=== PATIENT | female | born 1990 | race Caucasian/White ===

== ENCOUNTER 2020-06-14 16:12 | Emergency (ER) | payer SELFPAY ==
[2020-06-14 16:15] VITALS: BP 113/63; PULSE 78; RESP 14; TEMP 36.2; O2SAT 100
[2020-06-14 16:26] VITALS: BP 113/63; PULSE 78; RESP 14; TEMP 36.2; O2SAT 100
--- NOTE | 2020-06-14 16:36 | ED.EAR ---
HPI - Ear Problem General Chief complaint: Ear Stated complaint: ear and throat pain Time Seen by Provider: 06/14/20 16:30 Source: patient Mode of arrival: ambulatory Limitations: no limitations History of Present Illness HPI Narrative: Michelle Medina is a 29 yo female with no PMH who [facility] right-sided jaw and throat pain started about 4 days ago. She has been afebrile but finds it difficult to swallow, has right-sided wisdom teeth that have not come any up that are painful, she has a lump on her throat that makes it difficult to swallow also, states her right ear also hurts Patient has been using Tylenol and ibuprofen for pain, difficulty swallowing when eating Related Data Home Medications Medication Instructions Recorded Confirmed lithium carbonate 300 mg capsule 300 mg PO TID 05/28/19 06/14/20 Allergies Allergy/AdvReac Type Severity Reaction Status Date / Time No Known Allergies Allergy Verified 06/14/20 16:25 Review of Systems Review of Systems: Narrative: CONSTITUTIONAL: Denies fever, chills, sweats. EYES: Denies visual changes, redness, discharge. ENT: Denies rhinorrhea, congestion, has sore throat, has right otalgia. CARDIOVASCULAR: Denies chest pain, palpitations, edema. RESPIRATORY: Denies dyspnea, wheezing, mild cough GASTROINTESTINAL: Denies abdominal pain, nausea, vomiting, diarrhea. GENITOURINARY: Denies dysuria, hematuria, abnormal discharge SKIN: Denies rash or itching. NEUROLOGIC: Denies numbness, or focal weakness. PSYCHIATRIC: Denies anxiety or depression. [facility] Past Medical History Medical History Bipolar 1 disorder Surgical History Surgical History History of tonsillectomy Hx of cholecystectomy Family History Family History Father Heart disease Social History Social History Smoking status: Never smoker Second hand tobacco smoke exposure: No Alcohol intake: never Comments Patient is adopted and can not provide any further family information At time of signature, I agree with nursing past medical, surgical, social and family history. There is no relevant family history pertinent to the presenting complaint. Exam Narrative: Exam Narrative: GENERAL: This is a well-nourished, well-developed patient, in moderate distress. HEAD: normocephalic, atraumatic. EYES: . Sclera clear/white. Vision is grossly intact. EARS: External ears normal, auditory canal clear on L mild redness on right and without drainage, TMs normal without perforation. Hearing grossly intact. NOSE: External nose normal without nasal discharge, nares without redness, no rhinorrhea. THROAT: Mucous membranes moist, posterior pharynx erythema with right-sided swelling NECK: Neck supple, right tender submandibular lymph node CARDIOVASCULAR: Regular rate and rhythm without murmurs, gallops, or rubs. RESPIRATORY: Clear to auscultation. Breath sounds equal bilaterally. No wheezes, rales, or rhonchi. GASTROINTESTINAL: Abdomen soft, SKIN: warm, intact with no suspicious lesions or rash, good texture and turgor. NEURO: awake, alert, and oriented to person, place and time. There were no obvious focal neurologic abnormalities. Steady gait EXTREMITIES: Normal range of motion. BACK: Nontender without deformity Course Course Emergency Course: Patient came to clinic with complaints of right-sided throat pain ear pain and tenderness along the right side of her throat, afebrile, and relief with Tylenol and ibuprofen Test is negative Because of enlarged lymph node in ear pain started on penicillin steroids and viscous lidocaine. Discussed may take up to 800 mg of ibuprofen with food a day for the next 2 to 3 days Follow-up with primary care physician Vital Signs Vital signs: Vital Sign
== END 2020-06-14 17:05 | disposition home or self-care (01) ==
PROVIDERS: Emergency Provider Nurse Practitioner; PCP Family Medicine
DX: I88.9 Nonspecific lymphadenitis, unspecified (principal); J02.9 Acute pharyngitis, unspecified; F31.9 Bipolar disorder, unspecified
CPT/HCPCS: 87081; 87880; 99213; G0463

== ENCOUNTER 2020-09-06 08:36 | Emergency (ER) | payer SELFPAY ==
[2020-09-06 08:50] VITALS: BP 116/69; PULSE 82; RESP 18; TEMP 36.2; O2SAT 100
--- NOTE | 2020-09-06 08:55 | ED.GENADULT ---
HPI - General Adult General Chief complaint: Dental/Oral Stated complaint: Dental/Oral Time Seen by Provider: 09/06/20 08:50 Source: patient Mode of arrival: ambulatory Limitations: no limitations History of Present Illness HPI narrative: Pleasant 29 y/o female. Pertinent PMH: None reported. Presents to [facility] clinic today with acute complaints of RT lower molar toothache/dental pain for past 48 hours respectively. She reports throbbing and aching sensation. States sub-therapeutic relief to OTC remedies. She is a daily cigarette smoker. Has called Dental school for appointment, but they are closed on weekend. No fever, chills. No dental trauma relayed. No gross facial swelling, dysphagia, involuntary drooling. No additional acute complaints upon exam. Related Data Allergies Allergy/AdvReac Type Severity Reaction Status Date / Time No Known Allergies Allergy Verified 09/06/20 08:52 Review of Systems Review of Systems: Narrative: CONSTITUTIONAL: Denies fever, chills, sweats. EYES: Denies visual changes, redness, discharge. ENT: Denies rhinorrhea, congestion, sore throat, otalgia. Positive Toothache. CARDIOVASCULAR: Denies chest pain, palpitations, edema. RESPIRATORY: Denies dyspnea, wheezing, cough GASTROINTESTINAL: Denies abdominal pain, nausea, vomiting, diarrhea. GENITOURINARY: Denies dysuria, hematuria, abnormal discharge SKIN: Denies rash or itching. MUSCULOSKELETAL: Denies acute back pain, joint pain, or myalgia. NEUROLOGIC: Denies numbness, or focal weakness. PSYCHIATRIC: Denies anxiety or depression. All systems reviewed & are unremarkable except as noted in HPI and below PMFSH Past Medical History Medical History Bipolar 1 disorder Surgical History Surgical History History of tonsillectomy Hx of cholecystectomy Family History Family History Father Heart disease Social History Social History Smoking status: Never smoker Second hand tobacco smoke exposure: No Alcohol intake: never Comments At time of signature, I agree with nursing past medical, surgical, social and family history. There is no relevant family history pertinent to the presenting complaint. Exam Narrative: Exam Narrative: GENERAL: This is a well-nourished, well-developed patient, in no apparent distress. HEAD: normocephalic, atraumatic. EYES: PERRL. Sclera clear/white. EARS: External ears normal. NOSE: External nose normal with no obvious nasal discharge, nares without redness, no rhinorrhea. THROAT: Mucous membranes moist, posterior pharynx clear. MOUTH: Noted widespread dental decay. With mild soft tissue swelling and tenderness to site of molar # 32. I do not appreciate gross facial swelling or obvious fluctuance/abscess. NECK: Neck supple, non-tender without lymphadenopathy, masses or thyromegaly. CARDIOVASCULAR: Regular rate and rhythm without murmurs, gallops, or rubs. RESPIRATORY: Clear to auscultation. Breath sounds equal bilaterally. No wheezes, rales, or rhonchi. GASTROINTESTINAL: Abdomen soft, non-tender, nondistended. Bowel sounds are active. No hepato-splenomegaly, or palpable masses. No guarding. SKIN: warm, intact with no suspicious lesions or rash, good texture and turgor. NEURO: awake, alert, and oriented to person, place and time. There were no obvious focal neurologic abnormalities. Steady gait Course Course Emergency Course: -29 y/o female. -No pertinent PMH. -CC: Dentalgia/Toothache RT lower X 48 hours respectively. -Sub-therapeutic relief with OTC remedies. -No established dentist. -PE consistent with widespread dental decay and infection molar 32. -No concern for fluctuance or abscess formation. -Will plan for antimicrobial coverage as OP, as well as cl
== END 2020-09-06 09:08 | disposition home or self-care (01) ==
PROVIDERS: Emergency Provider Nurse Practitioner Adult Health
DX: K04.7 Periapical abscess without sinus (principal)
CPT/HCPCS: 99213; G0463

== ENCOUNTER 2022-10-30 17:03 | Observation (INO) | payer MEDICAID, SELFPAY ==
[2022-10-30] VITALS (7 sets, daily range): BP systolic 92–117; BP diastolic 55–77; PULSE 86–110; RESP 15–18; TEMP 36.6; O2SAT 99–100
--- NOTE | ~2022-10-30 | US_ITS ---
EXAMINATION: US renal BI DATE: 10/30/2022 22:55 INDICATION: Eval hydronephrosis/kidney stone in TECHNIQUE: Multiple grayscale and Doppler ultrasound images of the kidneys were obtained. COMPARISON: None. FINDINGS: The right kidney measures 10.7 x 4.4 x 4.7 cm. The left kidney measures 12.2 x 5.4 x 4.8 cm. The kidn eys demonstrate normal parenchymal echogenicity. There is no hydronephrosis. The bladder is incomplet chele distended but grossly normal. IMPRESSION: Unremarkable renal sonogram findings. Reviewed, dictated and finalized at location K.
--- NOTE | ~2022-10-30 | US_ITS ---
EXAMINATION: US OB <=14 wk fetus w TV INDICATION: Abdominal pain in TECHNIQUE: Sonography of the pelvis was performed by transabdominal and transvaginal techniques. COMPARISON: None. RESULT: Uterus: Orientation: Anteverted. 8.8 x 4.1 x 5.0 cm. Myometrium: homogeneous echogenicity. Gestation: - Intrauterine gestational sac: Not seen. Right ovary: 3.0 x 2.4 x 2.2 cm. Normal sonographic appearance with physiologic follicles. . 1.7 c m complex right ovarian cyst with peripheral vascularity, likely corpus luteal cyst. Left ovary: 1.8 x 1.5 x 1.2 cm. Normal sonographic appearance with physiologic follicles. . . Pelvis free fluid: Very small volume free pelvic fluid, within physiologic range. IMPRESSION: of unknown location. Likely right corpus luteal cyst. Recommend continued close clinical an d sonographic follow-up. Reviewed, dictated and finalized at location K. IMPRESSION: of unknown location. Likely right corpus luteal cyst. Recommend yaneli nued close clinical and sonographic follow-up.
[2022-10-30 17:29] LABS: Basophils Percent Auto 0.3 % (0.2-1.2); Eosinophils Percent Auto 0.4 % (0-4.4); Hematocrit 44.6 % (37.0-47.0); Hemoglobin 15.1 g/dL (12.0-15.0); Immature Granulocyte Absolute 0.02 K/mm3 (0.00-0.031); Immature Granulocyte Percent A 0.2 % (0-0.5); Lymphocytes Absolute Auto 1.89 K/mm3 (0.9-3.2); Mean Corpuscular HGB Conc 33.9 g/dl (32-36); Mean Corpuscular Hemoglobin 30.7 pg (26-34); Mean Corpuscular Volume 90.7 fl (80-100); Mean Platelet Volume 10.1 fl (7.4-10.4); Monocytes Absolute Auto 0.6 K/mm3 (0.1-0.6); Monocytes Percent Auto 6.8 % (2.6-8.5); Neutrophils Absolute Auto 6.8 K/mm3 (1.3-6.7); Neutrophils Percent Auto 72.3 % (45.5-73.1); Platelet Count Result 364 k/mm3 (150-375); Red Blood Count 4.92 M/mm3 (4.2-5.4); Red Cell Distribution Width 12.9 % (11.5-14.5); White Blood Count 9.5 K/mm3 (4.5-10.0)
[2022-10-30 17:44] LABS: Alanine Aminotransferase 34 U/L (6-35); Albumin Level 4.5 g/dL (3.5-5.1); Alkaline Phosphatase 93 U/L (38-126); Anion Gap 7 mmol/L (8-16); Aspartate Amino Transferase 33 U/L (14-36); Bilirubin,Total 0.6 mg/dL (0.2-1.3); Blood Urea Nitrogen 12 mg/dL (7-17); Calcium 8.9 mg/dL (8.4-10.2); Carbon Dioxide 26 mmol/L (22-30); Chloride 104 mmol/L (98-107); Estimated CRCL calculation 101 ml/min; Estimated Glomerular Filt Rate > 60; Glucose 82 mg/dL (65-110); Potassium 4.2 mmol/L (3.4-5.0); Sodium 137 mmol/L (137-145)
[2022-10-30 18:24] LABS: Appearance Urine Clear (Clear); Bacteria Urine 4+ /hpf; Bilirubin Urine Negative (Negative); Color Urine Yellow (Yellow); Glucose Urine UA Negative (Negative); Ketones Urine Negative (Negative); Leukocyte Esterase Ur 1+ LEU/UL (Negative); Nitrate Urine Negative (Negative); Non Pathogenic Casts 0-2; Protein Urine Negative (Negative); Specific Grav Ur 1.022 (1.001-1.035); Squamous Epithelial Cell Urine Moderate /hpf (Few); Urobilinogen Urine 0.2 mg/dL (<2.0); WBC Urine 21-50 /hpf
[2022-10-30 18:36] LABS: Add Urine Microscopic? YES
[2022-10-30 18:50] LABS: Pregnancy On Board Control Positive; Urine Pregnancy Test Positive
[2022-10-30] MEDS: ONDANSETRON INJ 4 MG/2 ML VIAL IV PUSH (19:20)
[2022-10-30] MEDS: SODIUM CHLORIDE 0.9% IV 1,000 ML 999 ML IV CONT (19:20)
[2022-10-30] MEDS: HYDROmorphone HCL INJ (*CRX) 1 MG/ML SYR 0.5 MG IV PUSH ×2 (19:20→23:49)
--- NOTE | 2022-10-30 19:41 | ED.GENADULT ---
HPI - General Adult General Chief complaint: Back Pain/Injury Stated complaint: right flank pain Time Seen by Provider: 10/30/22 19:14 History of Present Illness HPI narrative: This is a 31-year-old female with history of kidney stones and chronic constipation presenting ED with flank and abdominal pain. Patient says she has been having intermittent back and abdominal pain for years however the last 2 weeks it has become a constant sharp pain in her right flank that wraps around the front of her stomach. He is not on 10 intensity and constant. Patient says improves with alcohol and is worse with moving. She denies urinary symptoms. She denies nausea vomiting fever chills chest pain or difficulty breathing. Patient's last bowel movement was yesterday but was very small and hard. She often goes about 1 week at a time in between bowel movements. She is not on a bowel regimen at this time. Related Data Allergies Allergy/AdvReac Type Severity Reaction Status Date / Time No Known Allergies Allergy Verified 10/30/22 17:52 [facility] Past Medical History Medical History (Updated 10/31/22 @ 05:18 by Rosalio Sousa MD) Bipolar 1 disorder Constipation Surgical History Surgical History (Updated 10/30/22 @ 19:43 by Rosalio Sousa MD) History of tonsillectomy Hx of appendectomy Hx of cholecystectomy Family History Family History Father Heart disease Social History Social History Smoking status: Never smoker Second hand tobacco smoke exposure: No Alcohol intake: never Exam Narrative: APPEARANCE: No apparent distress. Head: atraumatic. EYES: EOMI, NOSE: Atraumatic NECK: Trachea midline RESPIRATORY: No increased rate of breathing CARDIOVASCULAR: RRR, ABDOMINAL: Patient has tenderness to palpation in the suprapubic area and right adnexal area. She also has right CVA tenderness. MUSCULOSKELETAl: No obvious deformities NEURO: Alert. Moving 4/4 extremities SKIN:: Warm, dry. Normal color PSYCHIATRIC: Normal affect Course Vital Signs Vital signs: Vital Signs Temperature 97.8 F 10/30/22 17:04 Pulse Rate 110 H 10/30/22 17:04 Respiratory Rate 15 10/30/22 17:04 Blood Pressure 117/70 10/30/22 17:04 Pulse Oximetry 100 10/30/22 17:04 Temperature 97.8 F 10/30/22 17:04 Pulse Rate 62 10/31/22 03:41 Respiratory Rate 14 10/31/22 03:41 Blood Pressure 97/62 L 10/31/22 03:41 Pulse Oximetry 100 10/31/22 03:41 Medical Decision Making MDM Narrative Medical decision making narrative: -Presentation: This is a 31-year-old female presenting with right flank pain, suprapubic pain and right lower quadrant pain. Patient has already had her appendix and gallbladder out. She was found to be . Transvaginal ultrasound and renal ultrasound has been ordered. 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 She lives with her boyfriend. -External Chart Review: None -Hx from independent Sources: Boyfriend at bedside -Discussion of Management/Consultants: Rajiv Venegas -Independent interpretation of studies: CBC was within normal limits. Metabolic panel was unremarkable. Urinalysis was positive for 21-50 white blood cells, +4 bacteria and +1 leuk esterase. Patient be treated with ceftriaxone. Urine drug screen is positive for cannabinoids. Transvaginal ultrasound showed a 1.7 m cystic structure within the right ovary containing echogenic material. This may represent an involuting cyst/corpus luteal cyst or ectopic . Dx tests considered but not ordered: -Procedures: -Interventions: 2 L normal saline, 0.5 mg Dilaudid x3, Zofran -Shared decision making / Disposition: Patient will
[2022-10-30 20:07] LABS: Amphetamine Screen Urine Negative (Negative); Barbiturate Screen Urine Negative (Negative); Benzodiazepines Screen Urine Negative (Negative); Cannabinoid Screen Urine Positive (Negative); Cocaine Screen Urine Negative (Negative); Methadone Screen Urine Negative (Negative); Opiate Screen Urine Negative (Negative); Phencyclidine Screen Urine Negative (Negative)
[2022-10-30 20:20] LABS: Beta HCG Quantitative 208.35 mIU/ML
--- NOTE | 2022-10-30 22:13 | PC.NURSE ---
Pt taken to ultrasound at this time.
[2022-10-31 01:50] VITALS: BP 101/64; PULSE 84; RESP 16; O2SAT 100
[2022-10-31] MEDS: HYDROmorphone HCL INJ (*CRX) 1 MG/ML SYR 0.5 MG IV PUSH ×3 (02:24→10:00)
[2022-10-31 03:41] VITALS: BP 97/62; PULSE 62; RESP 14; O2SAT 100
[2022-10-31 06:08] VITALS: BP 117/63; PULSE 72; RESP 16; O2SAT 100
[2022-10-31] MEDS: SODIUM CHLORIDE 0.9% IV 1,000 ML 150 ML IV CONT (06:10)
[2022-10-31 06:45] VITALS: BP 128/84; PULSE 71; RESP 16; O2SAT 99
--- NOTE | 2022-10-31 06:59 | ADMGEN ---
This patient, Michelle Medina, was admitted to 3 [facility] Surg Room 302-01. Patient/family oriented to hospital policies and general routines including ID bracelet, bed and alarms, visiting hours, pain management, procedures, bathroom and other care routines, personal items, smoking policy, room service/diet, and visiting hours. Information on how to activate the Rapid Response Team has been discussed. Patient/Family are encouraged to report perceived risks to care and to ask questions if they do not understand what they are told or what they should do.
[2022-10-31 07:13] VITALS: BP 134/69; PULSE 80; RESP 20; TEMP 36.4; O2SAT 100; BMI 32.4
[2022-10-31] MEDS: FAMOTIDINE 20 MG/2 ML VIAL IV PUSH (07:30)
[2022-10-31 08:00] VITALS: O2SAT 98
[2022-10-31 11:27] LABS: Beta HCG Quantitative 267.42 mIU/ML
--- NOTE | 2022-10-31 12:27 | PM.IMHP ---
H&P: HPI History of Present Illness Date/Time: 10/31/22 12:27 Chief Complaint: pelvic pain Narrative: this patient is a 31-year-old female with pelvic pain and . She has a of unknown location at this time she has an HCG of 200 to 270. She has a nonspecific mass around the, or on the, right ovary. Possible small amount of free fluid around the ovary. HCGs are going up in a short interval. They may be going up normally. We agreed to observe her . We are going to have some short-term follow-up with hCG tomorrow and ultrasound on Tuesday and an office visit on Tuesday. Those that is in 1 and 2 days. At this time she has little pain. She looks comfortable. Her vital signs are stable. Review of Systems Review of Systems: All systems reviewed & are unremarkable except as noted in HPI and below Constitutional: Constitutional: Denies chills, Denies fatigue, Denies fever(s) and Denies weakness Eyes: Eyes: Denies blurry vision, Denies change in vision, Denies loss of peripheral vision, Denies loss of vision, Denies other visual disturbances and Denies eye pain ENT: Denies vertigo, Denies dizziness, Denies hearing loss, Denies mouth pain, Denies nasal obstruction, Denies neck mass and Denies neck pain Cardiovascular: Cardiovascular: Denies chest pain, Denies diaphoresis, Denies syncope, Denies leg edema and Denies dyspnea Respiratory: Respiratory: Denies chest congestion, Denies cough, Denies hemoptysis, Denies dyspnea and Denies wheezing Gastrointestinal: Gastrointestinal: Denies abdominal pain, Denies constipation, Denies diarrhea, Denies nausea and Denies vomiting Genitourinary: Genitourinary: Denies hematuria, Denies change in libido, Denies nocturia, Denies genital lesions, Denies flank pain and Denies urinary urgency Musculoskeletal: Musculoskeletal: Denies abnormal gait, Denies back pain, Denies myalgias, Denies arthralgias, Denies joint swelling, Denies muscle weakness and Denies neck pain Integumentary/Breasts: Skin/Breast: Denies swelling, Denies breast pain, Denies breast mass, Denies dry skin, Denies nipple discharge, Denies unusual bruising and Denies jaundice Neurologic: Denies Neuro-related abnormal movements, Denies Abnormal speech present, Denies abnormal gait, Denies behavioral changes, Denies confusion, Denies vertigo, Denies dizziness, Denies syncope, Denies loss of vision, Denies memory loss, Denies convulsions and Denies weakness Psychiatric: Psychiatric: Denies abnormal sleep pattern, Denies behavioral changes, Denies change in libido, Denies confusion, Denies depression, Denies anhedonia and Denies memory loss Endocrine: Endocrine: Reports no additional endocrine complaints, Denies change in libido and Denies fatigue Hematologic/Lymphatic: Hematologic/Lymphatic: Reports no additional hematologic/lymphatic complaints Allergic/Immunologic: Allergic/Immunologic: Reports no additional allergic/immunologic complaints and Denies wheezing PMFSH Past Medical History Medical History (Updated 10/31/22 @ 12:42 by Valeriy Atkinson MD) Bipolar 1 disorder Constipation Surgical History Surgical History (Updated 10/30/22 @ 19:43 by Rosalio Sousa MD) History of tonsillectomy Hx of appendectomy Hx of cholecystectomy Family History Family History Father Heart disease Social History Social History Smoking status: Never smoker Second hand tobacco smoke exposure: No Alcohol intake: current Drinks per week: 5 Substance use: current Substance use type: marijuana, crack/cocaine and methamphetamine Last use: t-1 Lack of Transportation: No Lack of Food: Never True Current Housing: I Have Housing Concerned About Future Housing: No Difficulty Paying Gas/Electric Bills: No Difficulty Paying for Meds: No Currently Unemployed: YES Education: High School Diploma
--- NOTE | 2022-11-28 17:50 | PM.DS ---
DS: Admitting Diagnosis Discharge Date 10/31/22 Admitting Diagnosis of unknown location DS: Discharge Diagnosis Discharge Diagnosis (1) of unknown anatomic location: Code(s): O36.80X0 - with inconclusive viability, not applicable or unspecified Status: Acute DS: Summary Hospital Course Hospital Course: 32-year-old female with positive test who was admitted for pelvic pain. She was found to have a of unknown location. We agreed short-term follow-up and serial HCGs. She was discharged home. Her abdominal pain was stable and unremarkable. Time Spent with Patient Time attestation: Total time spent providing and/or coordinating discharge services: Discharge Plan Discharge Consulting providers: Sandip Mercado; Benoit Staples Discharging Clinician: Valeriy Atkinson Patient Disposition: Home, Self-Care Activity: pelvic rest Diet: regular Patient Instructions: Antibiotic Form Stand Alone Forms: General Discharge Information Follow-up/Referrals: Valeriy Atkinson MD [Physician] - Call for Appointment (Needs to be seen on 11/04/22) Discharge Medications: New hydrocodone-acetaminophen 5-325 mg tablet 1 - 2 tablet PO Q6H PRN (Reason: pain) Qty: 25 0RF Continued aripiprazole 5 mg tablet 5 mg PO DAILY Rx Instructions: for 5 more days, then increase to 10mg daily Date of admission: 10/31/22 13:01 Primary Care Provider: PHYSICIAN,NEUROSURGERY RESEARCH DIRECTOR Admitting Provider: Valeriy Atkinson Attending physician on admission: Valeriy Atkinson Condition: Stable
== END 2022-10-31 13:05 | disposition home or self-care (01) ==
LOC: ANHED 10-31 05:18 → ANH3MEDSUR 10-31 06:47
PROVIDERS: Emergency Medicine; Admitting Provider Obstetrics & Gynecology; Emergency Provider Emergency Medicine; Visit Provider Obstetrics & Gynecology
DX: O00.90 Unspecified ectopic pregnancy without intrauterine pregnancy (principal); O36.80X0 Pregnancy with inconclusive fetal viability, not applicable or unspecified; O23.40 Unspecified infection of urinary tract in pregnancy, unspecified trimester; N39.0 Urinary tract infection, site not specified; Z3A.00 Weeks of gestation of pregnancy not specified; Z79.891 Long term (current) use of opiate analgesic; Z79.899 Other long term (current) drug therapy
CPT/HCPCS: 36415; 76775; 76801; 76817; 80053; 80307; 81001; 81025; 84702; 85025; 87077; 87086; 87186; 96361; 96374; 96375; 96376; 99285; J0131; J0696; J1170; J2405; J7030

== ENCOUNTER 2022-11-01 13:23 | Outpatient (CLI) | payer SELFPAY | END 2022-11-01 13:24 | disposition home or self-care (01) | LOC: ANHLAB 13:24 | PROVIDERS: Visit Provider Obstetrics & Gynecology | DX: O00.90 Unspecified ectopic pregnancy without intrauterine pregnancy (principal) | CPT/HCPCS: 36415; 84702 ==

== ENCOUNTER 2022-11-22 13:33 | Outpatient (CLI) | payer MEDICAID, SELFPAY ==
--- NOTE | ~2022-11-22 | US_ITS ---
EXAMINATION: US OB transvaginal DATE: 11/22/2022 14:31 INDICATION: Uncertain dates. Amenorrhea. TECHNIQUE: Real-time transvaginal pelvic ultrasound was performed. COMPARISON: Ultrasound 10/30/2022 FINDINGS: The uterus measures 9.8 x 5.6 x 5.0 cm. There is an intrauterine gestational sac. A yolk sac is ident ified. The crown rump length measures 1.1 cm, which correlates with an estimated gestational a ge of 7 weeks and 1 day(s) (+/-) 5 day(s). heart motion is identified measuring 144 beats per m inute (bpm) by M-mode Doppler. The right ovary measures 3.2 x 3.0 x 1.9 cm. The left ovary measures 2 .7 x 1.9 x 1.5 cm. There is no free fluid in the pelvis. IMPRESSION: 1. Single living intrauterine gestation with estimated date of delivery of 07/10/2023. Reviewed, dictated and finalized at location A. IMPRESSION: 1. Single living intrauterine gestation with estimated date of delivery of .
== END 2022-11-22 13:34 | disposition home or self-care (01) ==
DX: Z32.01 Encounter for pregnancy test, result positive (principal)
CPT/HCPCS: 76817

== ENCOUNTER 2022-12-02 09:53 | Emergency (ER) | payer MEDICAID, SELFPAY ==
[2022-12-02 09:55] VITALS: BP 107/75; PULSE 84; RESP 18; TEMP 36.6; O2SAT 100
--- NOTE | 2022-12-02 10:37 | PC.NURSE ---
Patient up to triage desk requesting IV and zofran to be started while she is waiting. Patient informed that this RN unable to do so, she needs to be seen by a EDP first.
[2022-12-02] MEDS: ONDANSETRON INJ 4 MG/2 ML VIAL IV PUSH (11:54)
[2022-12-02] MEDS: SODIUM CHLORIDE 0.9% IV 1,000 ML 999 ML IV CONT (11:54)
[2022-12-02 12:10] LABS: Basophils Percent Auto 0.3 % (0.2-1.2); Eosinophils Percent Auto 0.2 % (0-4.4); Hematocrit 41.7 % (37.0-47.0); Hemoglobin 14.6 g/dL (12.0-15.0); Immature Granulocyte Absolute 0.04 K/mm3 (0.00-0.031); Immature Granulocyte Percent A 0.3 % (0-0.5); Lymphocytes Absolute Auto 1.87 K/mm3 (0.9-3.2); Lymphocytes Percent Auto 14.6 % (18.3-44.2); Mean Corpuscular Hemoglobin 30.4 pg (26-34); Mean Corpuscular Volume 86.9 fl (80-100); Mean Platelet Volume 10.6 fl (7.4-10.4); Monocytes Absolute Auto 0.7 K/mm3 (0.1-0.6); Monocytes Percent Auto 5.2 % (2.6-8.5); Neutrophils Absolute Auto 10.2 K/mm3 (1.3-6.7); Neutrophils Percent Auto 79.4 % (45.5-73.1); Platelet Count Result 272 k/mm3 (150-375); Red Cell Distribution Width 12.3 % (11.5-14.5); White Blood Count 12.8 K/mm3 (4.5-10.0)
[2022-12-02 12:12] LABS: Alanine Aminotransferase 56 U/L (6-35); Albumin Level 4.4 g/dL (3.5-5.1); Alkaline Phosphatase 69 U/L (38-126); Anion Gap 10 mmol/L (8-16); Aspartate Amino Transferase 45 U/L (14-36); Bilirubin,Total 0.5 mg/dL (0.2-1.3); Blood Urea Nitrogen 9 mg/dL (7-17); Carbon Dioxide 19 mmol/L (22-30); Chloride 105 mmol/L (98-107); Estimated CRCL calculation 136 ml/min; Estimated Glomerular Filt Rate > 60; Glucose 89 mg/dL (65-110); Lipase 79 U/L (23-300); Potassium 3.6 mmol/L (3.4-5.0); Sodium 134 mmol/L (137-145)
[2022-12-02 12:38] LABS: Appearance Urine Cloudy (Clear); Bacteria Urine 1+ /hpf; Bilirubin Urine Negative (Negative); Blood Urine Negative (Negative); Color Urine Yellow (Yellow); Glucose Urine UA Negative (Negative); Ketones Urine 3+ mg/dL (Negative); Leukocyte Esterase Ur Negative LEU/UL (Negative); Nitrate Urine Negative (Negative); Non Pathogenic Casts 0-2; Protein Urine 1+ mg/dL (Negative); RBC Urine 0-2 /hpf (0-2); Specific Grav Ur 1.022 (1.001-1.035); Squamous Epithelial Cell Urine Many /hpf (Few); WBC Urine 0-5 /hpf; pH Urine >=9.0 (5.0-9.0)
[2022-12-02 12:39] LABS: Influenza A QL RT-PCR Negative (Negative); Influenza B QL RT-PCR Negative (Negative); SARS-CoV-2 RNA PCR Negative (Negative)
[2022-12-02 12:43] LABS: Add Urine Microscopic? YES
[2022-12-02 13:07] VITALS: BP 102/64; PULSE 82; RESP 16; O2SAT 99
[2022-12-02] MEDS: FAMOTIDINE 20 MG/2 ML VIAL IV PUSH (14:11)
--- NOTE | 2022-12-02 14:44 | ED.NAVMDI ---
HPI - Nausea/Vomiting/Diarrhea General Chief complaint: Nausea/Vomiting/Diarrhea Stated complaint: 10wks , n/v Time Seen by Provider: 12/02/22 11:16 History of Present Illness HPI Narrative: Patient is a 32-year-old female who is a that is 10 weeks who presents ER with nausea and vomiting. Began today. No diarrhea. Has abdominal cramping but no pain related to it. No vaginal bleeding or discharge. Had an ultrasound previously to confirm IUP at her OBs office. No known sick contacts. She does endorse heartburn which has been untreated at home. No alleviating factors. She has been on Zofran at home without improvement. Related Data Home Medications Medication Instructions Recorded Confirmed aripiprazole 5 mg tablet 5 mg PO DAILY 10/31/22 10/31/22 Allergies Allergy/AdvReac Type Severity Reaction Status Date / Time No Known Allergies Allergy Verified 10/30/22 17:52 Review of Systems Review of Systems: All systems reviewed & are unremarkable except as noted in HPI and below Constitutional: Constitutional: Denies chills, Reports fatigue and Denies fever(s) ENT: Denies nasal congestion and Denies sore throat Cardiovascular: Cardiovascular: Denies chest pain, Denies rapid heart rate and Denies radiating jaw, neck or arm pain Respiratory: Respiratory: Denies cough and Denies dyspnea Gastrointestinal: Gastrointestinal: Denies abdominal pain, Denies diarrhea, Reports nausea and Reports vomiting Genitourinary: Genitourinary: Denies abnormal vaginal bleeding, Denies nocturia and Denies dysuria PMFSH Past Medical History Medical History (Updated 12/02/22 @ 14:48 by Milton Cortez MD) Bipolar 1 disorder Constipation Surgical History Surgical History (Updated 10/30/22 @ 19:43 by Rosalio Sousa MD) History of tonsillectomy Hx of appendectomy Hx of cholecystectomy Family History Family History Father Heart disease Social History Social History Smoking status: Never smoker Second hand tobacco smoke exposure: No Alcohol intake: current Drinks per week: 5 Substance use: current Substance use type: marijuana, crack/cocaine and methamphetamine Last use: t-1 Lack of Transportation: No Lack of Food: Never True Current Housing: I Have Housing Concerned About Future Housing: No Difficulty Paying Gas/Electric Bills: No Difficulty Paying for Meds: No Currently Unemployed: YES Education: High School Diploma/GED Difficulty w/ Childcare or Family Care: No Spiritual care concerns: No Exam Narrative: GENERAL: Fatigued-appearing, well-nourished, and in no acute distress. HEAD: Normocephalic, atraumatic. ENT: Mucous membranes moist. CHEST: Clear to auscultation. No respiratory distress. HEART: Regular rate and rhythm. Normal peripheral pulses. ABDOMEN: Soft, nontender, nondistended. EXTREMITIES: Normal range of motion. No edema. SKIN: Warm, dry, no rash. NEURO: Alert and oriented x3. PSYCH: Normal mood and affect. Course Course Emergency Course: Patient resting comfortably. Informed of results. Tolerating oral fluid. Nausea improved. Vital Signs Vital signs: Vital Signs Temperature 97.8 F 12/02/22 09:55 Pulse Rate 84 12/02/22 09:55 Respiratory Rate 18 12/02/22 09:55 Blood Pressure 107/75 12/02/22 09:55 Pulse Oximetry 100 12/02/22 09:55 Oxygen Delivery Room Air 12/02/22 09:55 Temperature 97.8 F 12/02/22 09:55 Pulse Rate 82 12/02/22 13:07 Respiratory Rate 16 12/02/22 13:07 Blood Pressure 102/64 12/02/22 13:07 Pulse Oximetry 99 12/02/22 13:07 Oxygen Delivery Room Air 12/02/22 09:55 MDM - Nausea/Vomiting/Diarrhea Lab Data 12/02/22 11:53 12/02/22 11:53 Labs: Lab Results 12/02/22 12/02/22 Range/Units 11:53 12:28 WBC 12.8 H (4.5-10.0)
[2022-12-02 14:54] VITALS: BP 104/72; PULSE 76; RESP 16; O2SAT 100
== END 2022-12-02 14:56 | disposition home or self-care (01) ==
PROVIDERS: Emergency Provider Emergency Medicine
DX: O26.891 Other specified pregnancy related conditions, first trimester (principal); K21.9 Gastro-esophageal reflux disease without esophagitis; Z3A.10 10 weeks gestation of pregnancy; Z20.822 Contact with and (suspected) exposure to COVID-19
CPT/HCPCS: 36415; 80053; 81001; 83690; 85025; 87636; 96361; 96374; 96375; 99284; J2405; J7030

== ENCOUNTER 2022-12-06 16:07 | Emergency (ER) | payer MEDICAID, SELFPAY ==
--- NOTE | 2022-12-06 16:10 | ED.DENTAL ---
HPI - Dental/Oral General Chief complaint: Dental/Oral Stated complaint: Lower right sided toothe ache Time Seen by Provider: 12/06/22 16:47 Mode of arrival: ambulatory Limitations: no limitations History of Present Illness HPI Narrative: 32-year-old female who is 10 weeks presents with concern for right lower dental pain and jaw swelling. She reports she broke a tooth in that area several months ago, she did not have pain until recently. She reports a ?bubble? in her gums. She reports she has been unable to get into a dentist. Complaint: tooth pain Related Data Home Medications Medication Instructions Recorded Confirmed aripiprazole 5 mg tablet 5 mg PO DAILY 10/31/22 10/31/22 Allergies Allergy/AdvReac Type Severity Reaction Status Date / Time No Known Allergies Allergy Verified 12/06/22 16:58 Review of Systems Review of Systems: CONSTITUTIONAL: Denies malaise, chills, sweats, or fever. EYES: Denies visual changes ENT: Denies rhinorrhea, congestion, sinus pain, otalgia or sore throat. Reports right lower dental pain CARDIOVASCULAR: Denies chest pain, palpitations RESPIRATORY: Denies cough or dyspnea. SKIN: Denies rash or itching. MUSCULOSKELETAL: Denies myalgia. NEUROLOGIC: Denies numbness, weakness, or headache. All systems reviewed & are unremarkable except as noted in HPI and below PMFSH Past Medical History Medical History (Updated 12/06/22 @ 16:53 by Torrie Ennis NP) Bipolar 1 disorder Constipation Surgical History Surgical History (Updated 10/30/22 @ 19:43 by Rosalio Sousa MD) History of tonsillectomy Hx of appendectomy Hx of cholecystectomy Family History Family History Father Heart disease Social History Social History Smoking status: Never smoker Second hand tobacco smoke exposure: No Alcohol intake: current Drinks per week: 5 Substance use: current Substance use type: marijuana, crack/cocaine and methamphetamine Last use: t-1 Lack of Transportation: No Lack of Food: Never True Current Housing: I Have Housing Concerned About Future Housing: No Difficulty Paying Gas/Electric Bills: No Difficulty Paying for Meds: No Currently Unemployed: YES Education: High School Diploma/GED Difficulty w/ Childcare or Family Care: No Spiritual care concerns: No Comments At time of signature, agree with nursing past medical, surgical, social and family history. There is no relevant family history pertinent to the presenting complaint Exam Narrative: GENERAL: Well-appearing, well-nourished, and in no acute distress. HEAD: Normocephalic, atraumatic. EYES: PERRLA, sclera clear ENT: Nares clear, turbinates pink, no rhinorrhea or epistaxis. Mucous membranes moist. TM pearly owens with sharp light reflex bilaterally; no tragal tenderness. Oropharynx without erythema or lesions. Tonsils not enlarged and without exudate. Missing teeth, broken teeth, caries; tooth number 29 broken with surrounding gingival erythema and edema, no palpable abscess. Mild right jaw swelling and tenderness noted NECK: Supple. No lymphadenopathy. CHEST: No respiratory distress. Speaks in full sentences. HEART: Regular rate and rhythm. SKIN: Warm, dry, no visible rash. NEURO: Alert and oriented x3. PSYCH: Normal mood and affect Course Course Emergency Course: Patient is aware of diagnosis, understands and agrees to treatment plan. Anticipatory guidance given. Patient agrees to follow-up as directed and is aware of reasons to seek care at the emergency department. Portions of this record may have been created with voice recognition software Level of Care: Express Care Visit Vital Signs Vital signs: Reviewed. MDM - Dental/Oral MDM Narrative Medical decision making narrative: Patients pain and complaint coupled with physical findings are consi
[2022-12-06 16:32] VITALS: BP 128/81; PULSE 89; RESP 14; TEMP 36.5; O2SAT 100
== END 2022-12-06 17:00 | disposition home or self-care (01) ==
PROVIDERS: Emergency Provider Nurse Practitioner
DX: K04.7 Periapical abscess without sinus (principal); F12.90 Cannabis use, unspecified, uncomplicated; F14.90 Cocaine use, unspecified, uncomplicated; F15.90 Other stimulant use, unspecified, uncomplicated
CPT/HCPCS: 99213; G0463

== ENCOUNTER 2022-12-22 08:52 | Emergency (ER) | payer MEDICAID, SELFPAY ==
[2022-12-22] VITALS (18 sets, daily range): BP systolic 95–118; BP diastolic 59–85; PULSE 92–98; RESP 18; TEMP 36.2–36.8; O2SAT 94–100
--- NOTE | ~2022-12-22 | US_ITS ---
EXAMINATION: US OB <= 14 weeks fetus DATE: 12/22/2022 12:01 INDICATION: Right abdominal pain. TECHNIQUE: Real-time transabdominal pelvic ultrasound was performed. COMPARISON: Ultrasound 11/22/2022 FINDINGS: The uterus measures 12.8 x 7.0 x 9.1 cm. There is an intrauterine gestational sac. The crown ru mp length measures 5.5 cm, which correlates with an estimated gestational age of 12 weeks and 0 day(s ) (+/-) 1 week(s) and 1 day(s). heart motion is identified measuring 156 beats per minute (bpm) by M-mode Doppler. The right ovary measures 2.4 x 2.7 x 2.0 cm. There is vascular flow in right ovar y. The left ovary is not visualized. There is no free fluid in the pelvis. IMPRESSION: 1. Single living intrauterine gestation with estimated date of delivery of 07/10/2023 based on the u ltrasound from 11/22/2022. Reviewed, dictated and finalized at location A. IMPRESSION: 1. Single living intrauterine gestation with estimated date of delivery of based on the ultrasound from 11/22/2022.
--- NOTE | ~2022-12-22 | US_ITS ---
EXAMINATION: US renal BI DATE: 12/22/2022 13:25 INDICATION: Right-sided abdominal pain TECHNIQUE: Multiple ultrasound grayscale images of the kidneys were obtained. COMPARISON: None. FINDINGS: The right kidney measures 12.5 x 5.6 x 5.3 cm. The left kidney measures 10.5 x 5.9 x 4.6 cm. The kidn eys demonstrate normal echogenicity. A couple small foci of twinkle artifact at the right renal hilum in one of the left kidney suggestive of renal stones too small to be clearly visualized on grayscale imaging or to demonstrate posterior acoustic shadowing. There is no hydronephrosis in either kidney. The bladder is normal with bilateral ureteral jets visualized on color Doppler. IMPRESSION: 1. Small foci of artifact at the bilateral renal brina suspicious for stones too small to be either d irectly visualized or demonstrated demonstrate posterior acoustic shadowing. No hydronephrosis. Reviewed, dictated and finalized at location B. IMPRESSION: 1. Small foci of artifact at the bilateral renal brina suspicious for stones to o small to be either directly visualized or demonstrated demonstrate posterior acoustic shadowing. No hydronephrosis.
--- NOTE | 2022-12-22 10:15 | ECG_ITS ---
Measurements Intervals [place] Rate: 74 P: 21 NC: 136 QRS: 12 QRSD: 86 T: 7 QT: 370 QTc: 413 Interpretive Statements SINUS RHYTHM WITH SINUS ARRHYTHMIA INCOMPLETE RIGHT BUNDLE BRANCH BLOCK BASELINE ARTIFACT- V1-V2 BORDERLINE ECG NO PREVIOUS ECG AVAILABLE FOR COMPARISON Electronically Signed On 12-22-2022 12:11:02 CDT by Jesús Francisco D.O.
[2022-12-22] MEDS: diphenhydrAMINE HCl INJ 50 MG/ML VIAL 25 MG IV PUSH (10:28)
[2022-12-22] MEDS: SODIUM CHLORIDE 0.9% IV 1,000 ML 999 ML IV CONT (10:32)
[2022-12-22 10:37] LABS: Basophils Percent Auto 0.3 % (0.2-1.2); Eosinophils Absolute Auto 0.1 K/mm3 (0-0.3); Eosinophils Percent Auto 0.5 % (0-4.4); Hematocrit 40.8 % (37.0-47.0); Hemoglobin 14.2 g/dL (12.0-15.0); Immature Granulocyte Absolute 0.04 K/mm3 (0.00-0.031); Immature Granulocyte Percent A 0.3 % (0-0.5); Lymphocytes Absolute Auto 1.92 K/mm3 (0.9-3.2); Lymphocytes Percent Auto 16.2 % (18.3-44.2); Mean Corpuscular HGB Conc 34.8 g/dl (32-36); Mean Corpuscular Hemoglobin 30.9 pg (26-34); Mean Corpuscular Volume 88.9 fl (80-100); Mean Platelet Volume 10.4 fl (7.4-10.4); Monocytes Absolute Auto 0.6 K/mm3 (0.1-0.6); Monocytes Percent Auto 5.4 % (2.6-8.5); Neutrophils Absolute Auto 9.2 K/mm3 (1.3-6.7); Neutrophils Percent Auto 77.3 % (45.5-73.1); Platelet Count Result 275 k/mm3 (150-375); Red Blood Count 4.59 M/mm3 (4.2-5.4); White Blood Count 11.9 K/mm3 (4.5-10.0)
[2022-12-22 10:40] LABS: Appearance Urine Clear (Clear); Bilirubin Urine Negative (Negative); Blood Urine Negative (Negative); Color Urine Yellow (Yellow); Glucose Urine UA Negative (Negative); Ketones Urine Negative (Negative); Leukocyte Esterase Ur Negative LEU/UL (Negative); Nitrate Urine Negative (Negative); Protein Urine Negative (Negative); Specific Grav Ur 1.012 (1.001-1.035); pH Urine 8.5 (5.0-9.0)
[2022-12-22 10:50] LABS: Add Urine Microscopic? NO
[2022-12-22 11:17] LABS: Influenza A QL RT-PCR Negative (Negative); Influenza B QL RT-PCR Negative (Negative); RSV RNA, RT-PCR Negative (Negative); SARS-CoV-2 RNA PCR Negative (Negative)
--- NOTE | 2022-12-22 11:25 | ED.GENADULT ---
HPI - General Adult General Chief complaint: Nausea/Vomiting/Diarrhea Stated complaint: nausea and vomiting - 13 weeks Time Seen by Provider: 12/22/22 09:52 Source: patient Mode of arrival: ambulatory Limitations: no limitations History of Present Illness HPI narrative: This is a 32-year-old female who is 13 weeks and presents to the ED with chief complaint of nausea and vomiting. Reports intermittent chest pain, shortness of breath, sore throat, congestion, cough, low back pain, and abdominal pain as well. Reports the abdominal pain is on the right side. Reports chest pain is on the left. Reports she has been around sick kids in the past couple of weeks to had stomach bugs. She states she normally takes Zofran at home but feels like this is not working. Patient denies vaginal bleeding, discharge. Denies any urinary symptoms or problems with bowel movements. Related Data Home Medications Medication Instructions Recorded Confirmed Abilify 12/06/22 12/06/22 Allergies Allergy/AdvReac Type Severity Reaction Status Date / Time No Known Allergies Allergy Verified 12/22/22 08:52 Review of Systems Review of Systems: CONSTITUTIONAL: Denies fever, chills, or sweats. EYES: Denies visual changes, redness, or discharge. ENT: Denies rhinorrhea, congestion, sore throat, or otalgia. CARDIOVASCULAR: Denies chest pain, palpitations, or edema. RESPIRATORY: Denies cough or dyspnea. GASTROINTESTINAL: See HPI GENITOURINARY: Denies dysuria or hematuria. SKIN: Denies rash or itching. MUSCULOSKELETAL: Denies back pain, joint pain, or myalgia. NEUROLOGIC: Denies headache, numbness, dizziness, or weakness. PSYCHIATRIC: Denies anxiety or depression. [facility] Past Medical History Medical History (Updated 12/22/22 @ 13:49 by Jordy Arzola PA-C) Bipolar 1 disorder Constipation Surgical History Surgical History (Updated 10/30/22 @ 19:43 by Rosalio Sousa MD) History of tonsillectomy Hx of appendectomy Hx of cholecystectomy Family History Family History Father Heart disease Social History Social History Smoking status: Never smoker Second hand tobacco smoke exposure: No Alcohol intake: current Drinks per week: 5 Substance use: current Substance use type: marijuana, crack/cocaine and methamphetamine Last use: t-1 Lack of Transportation: No Lack of Food: Never True Current Housing: I Have Housing Concerned About Future Housing: No Difficulty Paying Gas/Electric Bills: No Difficulty Paying for Meds: No Currently Unemployed: YES Education: High School Diploma/GED Difficulty w/ Childcare or Family Care: No Spiritual care concerns: No Exam Narrative: GENERAL: Well-appearing, well-nourished, and in no acute distress. Pleasant and conversational. HEAD: Normocephalic, atraumatic. EYES: PERRLA and EOMI. ENT: Nares clear, no rhinorrhea or epistaxis. Mucous membranes moist. Oropharynx without tonsillar hypertrophy exudate or other lesions. NECK: Supple. No adenopathy or masses. CHEST: No respiratory distress. Clear to auscultation. No wheezes rales or rhonchi HEART: Regular rate and rhythm. No murmur heard. Normal peripheral pulses. ABDOMEN: Gravid abdomen. Mildly tender right flank. Soft, otherwise nontender, nondistended, normal active bowel sounds. MSK: Normal range of motion. No edema. SKIN: Warm, dry, no rash. NEURO: Alert and oriented x3. No focal deficits. PSYCH: Normal mood and affect. Course Course Emergency Course: Reevaluation 1005: She is no longer complaining of shortness of breath or chest pain. She feels like it was more related to the cough that she has been having. Vital Signs Vital signs: Vital Signs Temperature 97.1 F L 12/22/22 08:59 Pulse Rate 98 12/22/22 08:59 Respiratory Rate 18 12/22/22 08:59 Blood
[2022-12-22 12:14] LABS: Alanine Aminotransferase 77 U/L (6-35); Alkaline Phosphatase 67 U/L (38-126); Anion Gap 5 mmol/L (8-16); Aspartate Amino Transferase 50 U/L (14-36); Bilirubin,Total 0.5 mg/dL (0.2-1.3); Blood Urea Nitrogen 7 mg/dL (7-17); Calcium 8.5 mg/dL (8.4-10.2); Carbon Dioxide 25 mmol/L (22-30); Chloride 105 mmol/L (98-107); Estimated CRCL calculation 135 ml/min; Estimated Glomerular Filt Rate > 60; Glucose 83 mg/dL (65-110); Potassium 3.6 mmol/L (3.4-5.0); Sodium 135 mmol/L (137-145)
== END 2022-12-22 14:06 | disposition home or self-care (01) ==
PROVIDERS: Emergency Provider Physician Assistant
DX: O99.891 Other specified diseases and conditions complicating pregnancy (principal); N20.0 Calculus of kidney; O99.341 Other mental disorders complicating pregnancy, first trimester; F31.9 Bipolar disorder, unspecified; Z20.822 Contact with and (suspected) exposure to COVID-19; Z90.49 Acquired absence of other specified parts of digestive tract; I45.10 Unspecified right bundle-branch block; Z3A.13 13 weeks gestation of pregnancy
CPT/HCPCS: 36415; 76775; 76801; 80053; 81003; 84702; 85025; 87637; 93005; 96365; 96375; 99284; J0131; J1200; J7030

== ENCOUNTER 2022-12-29 16:50 | Emergency (ER) | payer MEDICAID, SELFPAY ==
[2022-12-29 17:02] VITALS: BP 127/78; PULSE 85; RESP 20; TEMP 36.2; O2SAT 100
--- NOTE | 2022-12-29 17:22 | ED.FEMALEGU ---
HPI - Female Genitourinary General Chief complaint: Urogenital-Female <CHRISTINA Bundy Last Filed: 12/30/22 00:22> Stated complaint: kidney stones <CHRISTINA Bundy Last Filed: 12/30/22 00:22> Time Seen by Provider: 12/29/22 17:03 <CHRISTINA Bundy Last Filed: 12/30/22 00:22> Source: patient and old records reviewed <CHRISTINA Bundy Last Filed: 12/30/22 00:22> Mode of arrival: ambulatory <CHRISTINA Bundy Last Filed: 12/30/22 00:22> Limitations: no limitations <CHRISTINA Bundy Last Filed: 12/30/22 00:22> History of Present Illness HPI Narrative: Patient is a 32 y/o female who presents to the ED with c/o R flank pain. Patient reports having intermittent pain for the last 3 months. She came to the ED here in October and was found to be . She is G1, P0, currently 14 weeks gestation. She has had confirmed IUP. She sees a Dr. Blas with [facility]. Patient was seen here again last week for the flank pain and was told she may have kidney stones, potentially seen via renal ultrasound. Patient was prescribed [place], Flomax, and Zofran. She has been taking these as directed, but pain has persisted. Unable to find relief. Pain occasionally radiates around to R abdomen and L flank. She began vomiting today despite taking nausea medicine, which prompted her presentation. Denies any fever, dysuria, hematuria, diarrhea, constipation, vaginal bleeding. Patient has had previous appendectomy and cholecystectomy. <CHRISTINA Bundy Last Filed: 12/30/22 00:22> Related Data Home medications: Home Medications Medication Instructions Recorded Confirmed Abilify 12/06/22 12/06/22 <CHRISTINA Bundy Last Filed: 12/30/22 00:22> Allergies/Adverse reactions: Allergies Allergy/AdvReac Type Severity Reaction Status Date / Time No Known Allergies Allergy Verified 12/22/22 08:52 <Rolanda Britt PA-C - Last Filed: 12/30/22 00:22> Review of Systems Review of Systems: CONSTITUTIONAL: Denies fever, chills, or sweats. CARDIOVASCULAR: Denies chest pain. RESPIRATORY: Denies dyspnea. GASTROINTESTINAL: HPI. GENITOURINARY: Denies dysuria or hematuria. SKIN: Denies rash or itching. MUSCULOSKELETAL: See HPI. NEUROLOGIC: Denies headache, numbness, or weakness. <Rolanda Britt PA-C - Last Filed: 12/30/22 00:22> All systems reviewed & are unremarkable except as noted in HPI and below <Rolanda Britt PA-C - Last Filed: 12/30/22 00:22> [facility] Past Medical History Medical History: Medical History Bipolar 1 disorder Constipation <Rolanda Britt PA-C - Last Filed: 12/30/22 00:22> Surgical History Surgical History: Surgical History History of tonsillectomy Hx of appendectomy Hx of cholecystectomy <Rolanda Britt PA-C - Last Filed: 12/30/22 00:22> Family History Family History: Family History Father Heart disease <Rolanda Britt PA-C - Last Filed: 12/30/22 00:22> Social History Social History: Social History Smoking status: Never smoker Second hand tobacco smoke exposure: No Alcohol intake: current Drinks per week: 5 Substance use: current Substance use type: marijuana, crack/cocaine and methamphetamine Last use: t-1 Lack of Transportation: No Lack of Food: Never True Current Housing: I Have Housing Concerned About Future Housing: No Difficulty Paying Gas/Electric Bills: No Difficulty Paying for Meds: No Currently Unemployed: YES Education: High School Diploma/GED Difficulty w/ Childcare or Family Care: No Spiritual care co
[2022-12-29] MEDS: METOCLOPRAMIDE HCL INJ 10 MG/2 ML VIAL IV PUSH (17:34)
[2022-12-29] MEDS: SODIUM CHLORIDE 0.9% IV 1,000 ML 999 ML IV CONT ×2 (17:34→19:52)
[2022-12-29 17:55] LABS: Basophils Percent Auto 0.3 % (0.2-1.2); Eosinophils Percent Auto 0.2 % (0-4.4); Hematocrit 41.2 % (37.0-47.0); Hemoglobin 14.4 g/dL (12.0-15.0); Immature Granulocyte Absolute 0.05 K/mm3 (0.00-0.031); Immature Granulocyte Percent A 0.3 % (0-0.5); Lymphocytes Absolute Auto 1.84 K/mm3 (0.9-3.2); Lymphocytes Percent Auto 11.9 % (18.3-44.2); Mean Corpuscular Volume 88.6 fl (80-100); Mean Platelet Volume 10.4 fl (7.4-10.4); Monocytes Absolute Auto 0.8 K/mm3 (0.1-0.6); Monocytes Percent Auto 5.2 % (2.6-8.5); Neutrophils Absolute Auto 12.7 K/mm3 (1.3-6.7); Neutrophils Percent Auto 82.1 % (45.5-73.1); Platelet Count Result 273 k/mm3 (150-375); Red Blood Count 4.65 M/mm3 (4.2-5.4); Red Cell Distribution Width 12.9 % (11.5-14.5); White Blood Count 15.5 K/mm3 (4.5-10.0)
[2022-12-29 17:57] LABS: Alanine Aminotransferase 60 U/L (6-35); Albumin Level 4.2 g/dL (3.5-5.1); Alkaline Phosphatase 81 U/L (38-126); Anion Gap 8 mmol/L (8-16); Aspartate Amino Transferase 44 U/L (14-36); Bilirubin,Total 0.4 mg/dL (0.2-1.3); Blood Urea Nitrogen 10 mg/dL (7-17); Carbon Dioxide 21 mmol/L (22-30); Chloride 104 mmol/L (98-107); Estimated Glomerular Filt Rate > 60; Glucose 86 mg/dL (65-110); Lipase 57 U/L (23-300); Potassium 3.8 mmol/L (3.4-5.0); Sodium 133 mmol/L (137-145)
[2022-12-29 18:20] VITALS: BP 110/64; PULSE 91; RESP 16; O2SAT 97
[2022-12-29 19:36] LABS: Appearance Urine Clear (Clear); Bilirubin Urine Negative (Negative); Blood Urine Negative (Negative); Color Urine Yellow (Yellow); Glucose Urine UA Negative (Negative); Ketones Urine 3+ mg/dL (Negative); Leukocyte Esterase Ur Negative LEU/UL (Negative); Nitrate Urine Negative (Negative); Protein Urine Negative (Negative); Specific Grav Ur 1.027 (1.001-1.035)
[2022-12-29 19:45] LABS: Add Urine Microscopic? YES
[2022-12-29] MEDS: MORPHINE SULFATE (*CRX) 4 MG/ML INJ IV PUSH (19:48)
[2022-12-29 20:11] VITALS: BP 102/63; PULSE 89; RESP 16; O2SAT 100
== END 2022-12-29 20:31 | disposition home or self-care (01) ==
PROVIDERS: Emergency Provider Physician Assistant
DX: O21.9 Vomiting of pregnancy, unspecified (principal); O99.282 Endocrine, nutritional and metabolic diseases complicating pregnancy, second trimester; E86.0 Dehydration; O26.892 Other specified pregnancy related conditions, second trimester; R10.9 Unspecified abdominal pain; O99.342 Other mental disorders complicating pregnancy, second trimester; F31.9 Bipolar disorder, unspecified; Z90.49 Acquired absence of other specified parts of digestive tract; Z3A.14 14 weeks gestation of pregnancy
CPT/HCPCS: 36415; 80053; 81001; 83690; 85025; 96361; 96374; 96375; 99284; J2270; J2765; J7030

== ENCOUNTER 2023-01-14 11:56 | Emergency (ER) | payer MEDICAID, SELFPAY ==
[2023-01-14 11:58] VITALS: BP 99/62; PULSE 102; RESP 16; TEMP 36.6; O2SAT 100
--- NOTE | 2023-01-14 12:10 | ED.GENADULT ---
HPI - General Adult General Chief complaint: Unspecified Stated complaint: Constipated Time Seen by Provider: 01/14/23 12:09 Source: patient Mode of arrival: ambulatory Limitations: no limitations History of Present Illness HPI narrative: 32 years old white female 4 months , complaining of lower abdominal discomfort, last bowel movement over 1 week ago. Been using different laxative [id number] without any improvement. History of constipation since she was a child, made it worse. She denies any fever, chills, nausea, vomiting, vaginal bleeding or discharge. Last a Fleet enema use over 2 weeks ago. Related Data Home Medications Medication Instructions Recorded Confirmed Abilify 12/06/22 12/06/22 Allergies Allergy/AdvReac Type Severity Reaction Status Date / Time No Known Allergies Allergy Verified 12/22/22 08:52 Review of Systems Review of Systems: All systems reviewed & are unremarkable except as noted in HPI and below PMFSH Past Medical History Medical History Bipolar 1 disorder Constipation Surgical History Surgical History History of tonsillectomy Hx of appendectomy Hx of cholecystectomy Family History Family History Father Heart disease Social History Social History Smoking status: Never smoker Second hand tobacco smoke exposure: No Alcohol intake: current Drinks per week: 5 Substance use: current Substance use type: marijuana, crack/cocaine and methamphetamine Last use: t-1 Lack of Transportation: No Lack of Food: Never True Current Housing: I Have Housing Concerned About Future Housing: No Difficulty Paying Gas/Electric Bills: No Difficulty Paying for Meds: No Currently Unemployed: YES Education: High School Diploma/GED Difficulty w/ Childcare or Family Care: No Spiritual care concerns: No Exam Narrative: General appearance: Well-developed, well-nourished Skin: Normal color Chest and respiratory: Airway patent, no respiratory distress, no accessory muscle use Heart: Regular rate/rhythm Abdomen: Soft, nontender, no organomegaly, quiet bowel sounds, rectal exam showed slight fecal impaction. No bleeding, no hemorrhoids, no mass Vascular: Normal peripheral pulses, normal capillary refill. Musculoskeletal: Normal range of motion, nontender back Neurologic: Alert and oriented ?3, CLERK is normal as tested, no gross motor deficit Course Vital Signs Vital signs: Vital Signs Temperature 36.6 C 01/14/23 11:58 Pulse Rate 102 H 01/14/23 11:58 Respiratory Rate 16 01/14/23 11:58 Blood Pressure 99/62 L 01/14/23 11:58 Pulse Oximetry 100 01/14/23 11:58 Oxygen Delivery Room Air 01/14/23 11:58 Temperature 36.6 C 01/14/23 11:58 Pulse Rate 102 H 01/14/23 11:58 Respiratory Rate 16 01/14/23 11:58 Blood Pressure 99/62 L 01/14/23 11:58 Pulse Oximetry 100 01/14/23 11:58 Oxygen Delivery Room Air 01/14/23 11:58 Medical Decision Making MDM Narrative Medical decision making narrative: Patient have history of constipation since she was a child, got worse after 4 months of . Been using [id number] medication without any significant improvement, last treated in November over 2 weeks ago. Rectal exam showed slight fecal impaction, soapsuds enema used with remarkable results and great improvement. Patient is feeling much better, ready to go home. Differential Diagnosis Differential Diagnosis:
[2023-01-14 12:57] VITALS: BP 110/68; PULSE 92; RESP 16; TEMP 36.8; O2SAT 100
== END 2023-01-14 13:41 | disposition home or self-care (01) ==
PROVIDERS: Emergency Provider Emergency Medicine
DX: O26.892 Other specified pregnancy related conditions, second trimester (principal); K59.00 Constipation, unspecified
CPT/HCPCS: 99283

== ENCOUNTER 2023-02-01 15:59 | Emergency (ER) | payer OTHER, SELFPAY ==
[2023-02-01 16:07] VITALS: BP 113/72; PULSE 90; RESP 16; TEMP 36.9; O2SAT 100
--- NOTE | 2023-02-01 17:12 | ED.SKABFB ---
HPI - Skin/Abscess/Foreign Bdy General Chief complaint: Skin/Abscess/Foreign Body Stated complaint: rash x2 weeks Time Seen by Provider: 02/01/23 16:50 Source: patient Mode of arrival: ambulatory Limitations: no limitations History of Present Illness HPI narrative: Patient is a 32-year-old female who presents to the ED with report of a rash to her right upper arm. Patient reports she first developed the rash to her right upper arm around 3 weeks ago. [place] and she is allergic to this. She reports having circular red itchy lesions to her right arm that seem to come and go, travel to different areas of her arm. She has also noticed scattered lesions on her abdomen, back, left forearm. She has not tried anything for symptoms. Denies any lesions on her face, difficulty breathing or swallowing, shortness of breath, lip or tongue swelling. Denies fevers. Patient is currently , 18 weeks gestation. She sees an AVIATION MANAGER with [facility] and has an appointment tomorrow. She denies any abdominal pain or vaginal bleeding, aside from her chronic right flank pain that has been ongoing for several months. Related Data Home Medications Medication Instructions Recorded Confirmed Abilify 12/06/22 12/06/22 Allergies Allergy/AdvReac Type Severity Reaction Status Date / Time alfalfa Allergy Hives Verified 02/01/23 16:00 Review of Systems Review of Systems: CONSTITUTIONAL: Denies fever, chills, or sweats. ENT: See HPI. CARDIOVASCULAR: Denies chest pain, palpitations, or edema. RESPIRATORY: Denies cough or dyspnea. GASTROINTESTINAL: See HPI. GENITOURINARY: Denies vaginal bleeding, dysuria or hematuria. SKIN: See HPI. MUSCULOSKELETAL: Denies back pain, joint pain, or myalgia. All systems reviewed & are unremarkable except as noted in HPI and below PMFSH Past Medical History Medical History Bipolar 1 disorder Constipation Surgical History Surgical History History of tonsillectomy Hx of appendectomy Hx of cholecystectomy Family History Family History Father Heart disease Social History Social History Smoking status: Never smoker Second hand tobacco smoke exposure: No Alcohol intake: current Drinks per week: 5 Substance use: current Substance use type: marijuana, crack/cocaine and methamphetamine Last use: t-1 Lack of Transportation: No Lack of Food: Never True Current Housing: I Have Housing Concerned About Future Housing: No Difficulty Paying Gas/Electric Bills: No Difficulty Paying for Meds: No Currently Unemployed: YES Education: High School Diploma/GED Difficulty w/ Childcare or Family Care: No Spiritual care concerns: No Exam Narrative: GENERAL: Well appearing, obese with BMI of 31.7, non-toxic, in no acute distress. HEAD: Normocephalic, atraumatic. ENT: Normal exam, MMs moist. No swelling of lips or tongue. No facial or mucosal urticaria. NECK: Supple. No adenopathy, no masses. RESPIRATORY: Airway patent, respirations nonlabored. Clear to auscultation bilaterally, no rales, rhonchi, wheezing. CARDIOVASCULAR: Regular rate and rhythm without murmurs, rubs, or gallops. Radial pulses 2+ and equal bilaterally. ABDOMINAL: Soft, uterus gravid, nontender, nondistended, no hepatosplenomegaly. Normoactive BS. MUSCULOSKELETAL: Moves all extremities. Strength/ROM intact without gross deformities. SKIN: Warm, dry, normal color. Areas of scattered erythematous circular lesions, consistent with urticaria, particularly to R upper arm/shoulder, some urticaria noticed to bilateral forearms, abdomen, and L lower back. Patient frequently itching on exam. NEURO: A&O X3. Speech clear. Cranial ne
[2023-02-01] MEDS: diphenhydrAMINE HCl CAP 25 MG CAPSULE PO (17:26)
[2023-02-01 17:30] VITALS: BP 99/66; PULSE 84; RESP 16; O2SAT 100
== END 2023-02-01 17:32 | disposition home or self-care (01) ==
PROVIDERS: Emergency Provider Physician Assistant
DX: O99.712 Diseases of the skin and subcutaneous tissue complicating pregnancy, second trimester (principal); L50.0 Allergic urticaria; O99.342 Other mental disorders complicating pregnancy, second trimester; F31.9 Bipolar disorder, unspecified; Z90.49 Acquired absence of other specified parts of digestive tract; Z3A.18 18 weeks gestation of pregnancy
CPT/HCPCS: 99283; A9270

== ENCOUNTER 2023-02-23 06:47 | Observation (INO) | payer OTHER, SELFPAY ==
[2023-02-23] VITALS (26 sets, daily range): BP systolic 67–117; BP diastolic 47–77; PULSE 78–99; RESP 18; TEMP 36.5–36.6; O2SAT 96–100; BMI 32.3
--- NOTE | 2023-02-23 07:30 | OBADM ---
This patient, Michelle Medina, admitted to the OB room OB Post 116 for observation. Patient/family oriented to hospital policies and general routines including ID bracelet, bed and alarms, visiting hours, pain management, procedures, bathroom and other care routines, personal items, smoking policy, room service/diet, and visiting hours. Patient/Family are encouraged to report perceived risks to care and to ask questions if they do not understand what they are told or what they should do.
--- NOTE | 2023-02-23 08:45 | PC.NURSE ---
Dr. Pete informed of this walk in pt who has received care at [facility] in [place] with Dr. Anh Lewis . Pt states she has had right upper abdominal pain since she discovered she was that has progressively gotten worse- especially with movement on that side or pt activity. States the pain now also wraps around to her back and down right side of abdomen. Describes as a sharp constant pain. Pt has had a lap rocco and appendectomy. Hx of kidney stones including one in early . Pt states a follow up U/S reported the kidney stone was gone UA was just sent. Pt also states she has been having 2-3 liquid stools per day for 2 weeks. Also, a return of her nausea with some emesis the last 2 weeks. Pt has been wanting to switch to a provider that comes to [facility] for delivery. Orders received for labs and stool O&P.
[2023-02-23 08:53] LABS: Appearance Urine Clear (Clear); Bacteria Urine None Seen /hpf; Bilirubin Urine Negative (Negative); Blood Urine Negative (Negative); Color Urine Dark Yellow (Yellow); Glucose Urine UA Negative (Negative); Ketones Urine 3+ mg/dL (Negative); Leukocyte Esterase Ur Negative LEU/UL (Negative); Nitrate Urine Negative (Negative); Non Pathogenic Casts 0-2; Protein Urine 1+ mg/dL (Negative); Specific Grav Ur 1.026 (1.001-1.035); Squamous Epithelial Cell Urine Few /hpf (Few); WBC Urine 0-5 /hpf; pH Urine 7.5 (5.0-9.0)
[2023-02-23 08:54] LABS: Add Urine Microscopic? YES
--- NOTE | 2023-02-23 09:00 | PC.NURSE ---
Dr. Pete in to see and examine pt.
--- NOTE | 2023-02-23 09:13 | PM.IMHP ---
H&P: HPI History of Present Illness Date/Time: 02/23/23 09:13 Chief Complaint: right flank pain Narrative: Michelle is a 32yo G1 at 21.5 here for persistent right flank pain. care elsewhere, but wants to transfer here. She has had this pain for about 3 mos. Was diagnosed with kidney stones then, but on recent US was told no more stones. Pain starts in right flank and lower ribs and can radiate to RLQ. Appendix and gall bladder out. Has a lot of N/V this also and is out of zofran. Has treated the pain with tylenol and lidocaine patches and they do not help. Is not aware of passing her kidney stones at all. No gross hematuria but has some microscopic at office visits. Also diarrhea for 2 weeks. No fevers or chills. Had normal anatomy US recently. Review of Systems Review of Systems: All systems reviewed & are unremarkable except as noted in HPI and below PMFSH Past Medical History Medical History (Updated 02/23/23 @ 09:17 by Leeanna Pete MD) Bipolar 1 disorder Constipation Right flank pain Surgical History Surgical History History of tonsillectomy Hx of appendectomy Hx of cholecystectomy Family History Family History Father Heart disease Social History Social History Smoking status: Never smoker Second hand tobacco smoke exposure: No Alcohol intake: current Drinks per week: 5 Substance use: current Substance use type: marijuana, crack/cocaine and methamphetamine Last use: t-1 Lack of Transportation: No Lack of Food: Never True Current Housing: I Have Housing Concerned About Future Housing: No Difficulty Paying Gas/Electric Bills: No Difficulty Paying for Meds: No Currently Unemployed: YES Education: High School Diploma/GED Difficulty w/ Childcare or Family Care: No Spiritual care concerns: No Meds Home Medications and Allergies Home Medications Medication Instructions Recorded Confirmed Type Abilify 12/06/22 History 12/06/22 History amoxicillin 875 mg-potassium 1 tablet PO Q12H 10 days #20 tabs 12/06/22 Rx clavulanate 125 mg tablet hydrocodone 5 mg-acetaminophen 325 1 tablet PO Q6-8H PRN pain #14 tabs 12/22/22 Rx mg tablet ondansetron 4 mg disintegrating 4 mg PO Q8H PRN nausea and 12/22/22 Rx tablet vomiting #10 tabs tamsulosin 0.4 mg capsule (Flomax) 0.4 mg PO DAILY #10 caps 12/22/22 Rx metoclopramide HCl 5 mg tablet 5 mg PO TID PRN nausea and 12/29/22 Rx vomiting #10 tabs bisacodyl 10 mg rectal suppository 10 mg RECTAL TID PRN constipation 01/14/23 Rx (Dulcolax (bisacodyl)) #12 ea polyethylene glycol 3350 17 17 g PO QID #10 grams 01/14/23 Rx gram/dose oral powder (Miralax) betamethasone dipropionate 0.05 % 1 applic topical BID PRN rash #60 02/01/23 Rx lotion mL Allergies Allergy/AdvReac Type Severity Reaction Status Date / Time alfalfa Allergy Hives Verified 02/01/23 16:00 Vital Signs Vital Signs - 24 hr 02/23/23 06:38 02/23/23 07:30 02/23/23 07:31 Temperature 97.8 F Pulse Rate 92 85 84 Respiratory Rate 18 Blood Pressure 117/77 105/71 100/60 Pulse Oximetry 98 99 Oxygen Delivery Room Air 02/23/23 07:35 02/23/23 07:40 02/23/23 07:45 Temperature Pulse Rate Respiratory Rate Blood Pressure Pulse Oximetry 100 100 100 Oxygen Delivery 02/23/23 07:46 02/23/23 07:50 02/23/23 07:52 Temperature Pulse Rate 84 Respiratory Rate Blood Pressure 67/47 L Pulse Oximetry 100 100 Oxygen Delivery 02/23/23 07:53 02/23/23 07:55 02/23/23 07:55 Temperature Pulse Rate Respiratory Rate Blood Pressure Pulse Oximetry 100 96 97 Oxygen Delivery 02/23/23 07:59 02/23/23 08:19 02/23/23 08:24 Temperature Pulse Rate 78 Respiratory Rate Blood Pressure 92/58
[2023-02-23 10:01] LABS: Basophils Percent Auto 0.3 % (0.2-1.2); Eosinophils Percent Auto 0.3 % (0-4.4); Hematocrit 37.6 % (37.0-47.0); Hemoglobin 13.1 g/dL (12.0-15.0); Immature Granulocyte Absolute 0.05 K/mm3 (0.00-0.031); Immature Granulocyte Percent A 0.4 % (0-0.5); Lymphocytes Absolute Auto 1.73 K/mm3 (0.9-3.2); Lymphocytes Percent Auto 14.8 % (18.3-44.2); Mean Corpuscular HGB Conc 34.8 g/dl (32-36); Mean Corpuscular Hemoglobin 31.7 pg (26-34); Monocytes Absolute Auto 0.7 K/mm3 (0.1-0.6); Monocytes Percent Auto 5.7 % (2.6-8.5); Neutrophils Absolute Auto 9.2 K/mm3 (1.3-6.7); Neutrophils Percent Auto 78.5 % (45.5-73.1); Platelet Count Result 247 k/mm3 (150-375); Red Blood Count 4.13 M/mm3 (4.2-5.4); Red Cell Distribution Width 13.2 % (11.5-14.5); White Blood Count 11.7 K/mm3 (4.5-10.0)
[2023-02-23 10:11] LABS: Alanine Aminotransferase 28 U/L (6-35); Albumin Level 3.8 g/dL (3.5-5.1); Alkaline Phosphatase 103 U/L (38-126); Anion Gap 8 mmol/L (8-16); Aspartate Amino Transferase 22 U/L (14-36); Bilirubin,Total 0.3 mg/dL (0.2-1.3); Blood Urea Nitrogen 10 mg/dL (7-17); Calcium 8.8 mg/dL (8.4-10.2); Carbon Dioxide 21 mmol/L (22-30); Chloride 107 mmol/L (98-107); Estimated CRCL calculation 141 ml/min; Estimated Glomerular Filt Rate > 60; Glucose 80 mg/dL (65-110); Potassium 3.6 mmol/L (3.4-5.0); Sodium 136 mmol/L (137-145)
--- NOTE | 2023-02-23 13:45 | PC.NURSE ---
Dr. Pete informed pt has not had a diarrhea stool since arrival. Pt did eat a late breakfast and denies nausea. OK to discharge pt to home and have her do Stool O&P as outpatient.
--- NOTE | 2023-02-25 07:55 | P.PNOB_ITS ---
OB - Triage/Final Diagnosis Visit Information Comments/Additional reasons for admission: [facility], and determined that she would benefit from observation care. Evaluation Laboratory results: Laboratory Tests 02/23/23 02/23/23 08:26 09:50 WBC 11.7 H RBC 4.13 L Hgb 13.1 Hct 37.6 MCV 91.0 MCH 31.7 MCHC 34.8 RDW 13.2 Plt Count 247 MPV 10.0 Immature Gran % (Auto) 0.4 Neut % (Auto) 78.5 H Lymph % (Auto) 14.8 L [place] % (Auto) 5.7 Eos % (Auto) 0.3 Baso % (Auto) 0.3 Lymph # (Auto) 1.73 [place] # (Auto) 0.7 H Eos # (Auto) 0.0 Baso # (Auto) 0.0 Abs Immat Gran (auto) 0.05 H Absolute Neuts (auto) 9.2 H Absolute Nucleated RBC 0.0 Nucleated RBC % 0.0 Sodium 136 L Potassium 3.6 Chloride 107 Carbon Dioxide 21 L Anion Gap 8 BUN 10 Creatinine 0.50 L Estim Creat Clear Calc 141 Estimated GFR > 60 Glucose 80 Calcium 8.8 Total Bilirubin 0.3 AST 22 ALT 28 Alkaline Phosphatase 103 Total Protein 7.0 Albumin 3.8 Urine Color Dark yellow Urine Appearance Clear Urine pH 7.5 Ur Specific [facility] 1.026 Urine Protein 1+ H Urine Glucose (UA) Negative Urine Ketones 3+ H Ur Blood (Man) Negative Urine Nitrate Negative Urine Bilirubin Negative Urine Urobilinogen 1.0 Leukocyte Esterase Rfl Negative Urine RBC 3-5 H Urine WBC 0-5 Ur Squamous Epith Cells Few Urine Bacteria None seen Urine Casts 0-2 Final Diagnosis (1) Diarrhea: Code(s): R19.7 - Diarrhea, unspecified Status: Acute (2) Nephrolithiasis: Code(s): N20.0 - Calculus of kidney Status: Acute (3) Right flank pain: Code(s): R10.9 - Unspecified abdominal pain Status: Acute (4) Nausea/vomiting in : Code(s): O21.9 - Vomiting of , unspecified Status: Acute
== END 2023-02-23 14:18 | disposition home or self-care (01) ==
LOC: ANHLDR 02-24 07:35 → ANHOBPP 02-24 07:35
PROVIDERS: Admitting Provider Obstetrics & Gynecology; Visit Provider Obstetrics & Gynecology
DX: O26.892 Other specified pregnancy related conditions, second trimester (principal); R10.9 Unspecified abdominal pain; R19.7 Diarrhea, unspecified; O26.833 Pregnancy related renal disease, third trimester; N20.0 Calculus of kidney; O21.9 Vomiting of pregnancy, unspecified; Z3A.21 21 weeks gestation of pregnancy
CPT/HCPCS: 36415; 80053; 81001; 85025; G0378; G0379

== ENCOUNTER 2023-03-08 10:30 | Outpatient (CLI) | payer OTHER, SELFPAY | END 2023-03-08 10:31 | disposition home or self-care (01) | LOC: ANHLAB 10:31 | PROVIDERS: Visit Provider Obstetrics & Gynecology | DX: R19.7 Diarrhea, unspecified (principal) | CPT/HCPCS: 87177; 87209 ==

== ENCOUNTER 2023-04-20 16:02 | Emergency (ER) | payer OTHER, SELFPAY ==
--- NOTE | ~2023-04-20 | XR_ITS ---
EXAMINATION: XR chest 2V DATE: 04/20/2023 17:12 INDICATION: Chest pain during third trimester TECHNIQUE: PA and lateral views of the chest were obtained. COMPARISON: Chest radiograph dated 04/05/13 FINDINGS: The lungs remain clear with no focal airspace opacities, pulmonary edema, pleural effusion or pneumot horax. The cardiomediastinal silhouette is normal. Cholecystectomy clips in right upper quadrant. Mil d upper thoracic levocurvature. IMPRESSION: 1. No acute cardiopulmonary disease. Reviewed, dictated and finalized at location A.
--- NOTE | 2023-04-20 16:03 | ECG_ITS ---
Measurements Intervals [place] Rate: 103 P: 0 NM: 124 QRS: 31 QRSD: 74 T: 8 QT: 324 QTc: 425 Interpretive Statements SINUS TACHYCARDIA BORDERLINE ECG COMPARED TO ECG 12/22/2022 10:40:35 SINUS TACHYCARDIA NOW PRESENT Electronically Signed On 04-21-2023 12:08:59 CDT by Jesús Francisco D.O.
[2023-04-20 16:08] VITALS: BP 129/93; PULSE 89; RESP 18; TEMP 36.6; O2SAT 99
[2023-04-20 16:34] LABS: Basophils Percent Auto 0.3 % (0.2-1.2); Eosinophils Absolute Auto 0.1 K/mm3 (0-0.3); Eosinophils Percent Auto 0.4 % (0-4.4); Hematocrit 40.7 % (37.0-47.0); Immature Granulocyte Absolute 0.06 K/mm3 (0.00-0.031); Immature Granulocyte Percent A 0.4 % (0-0.5); Lymphocytes Absolute Auto 2.24 K/mm3 (0.9-3.2); Lymphocytes Percent Auto 15.8 % (18.3-44.2); Mean Corpuscular HGB Conc 34.4 g/dl (32-36); Mean Corpuscular Hemoglobin 30.7 pg (26-34); Mean Corpuscular Volume 89.3 fl (80-100); Mean Platelet Volume 10.6 fl (7.4-10.4); Monocytes Absolute Auto 0.8 K/mm3 (0.1-0.6); Monocytes Percent Auto 5.4 % (2.6-8.5); Neutrophils Percent Auto 77.7 % (45.5-73.1); Platelet Count Result 283 k/mm3 (150-375); Red Blood Count 4.56 M/mm3 (4.2-5.4); Red Cell Distribution Width 12.7 % (11.5-14.5); White Blood Count 14.2 K/mm3 (4.5-10.0)
[2023-04-20 16:45] LABS: INR 0.9; Prothrombin Time 12.5 Seconds (11.1-14.7)
[2023-04-20 16:46] LABS: Partial Thromboplastin Time 26.6 SECONDS (22.3-36.8)
[2023-04-20 16:51] LABS: Alanine Aminotransferase 20 U/L (6-35); Alkaline Phosphatase 141 U/L (38-126); Anion Gap 10 mmol/L (8-16); Aspartate Amino Transferase 23 U/L (14-36); Bilirubin,Total 0.4 mg/dL (0.2-1.3); Blood Urea Nitrogen 10 mg/dL (7-17); Calcium 9.1 mg/dL (8.4-10.2); Carbon Dioxide 18 mmol/L (22-30); Chloride 106 mmol/L (98-107); Estimated CRCL calculation 125 ml/min; Estimated Glomerular Filt Rate > 60; Glucose 77 mg/dL (65-110); Lipase 104 U/L (23-300); Potassium 3.8 mmol/L (3.4-5.0); Sodium 134 mmol/L (137-145)
[2023-04-20 17:02] LABS: Troponin I < 0.012 ng/mL (0.000-0.034)
[2023-04-20 17:09] LABS: Influenza A QL RT-PCR Negative (Negative); Influenza B QL RT-PCR Negative (Negative); SARS-CoV-2 RNA PCR Negative (Negative)
--- NOTE | 2023-04-20 17:09 | ED.CHESTPAIN ---
HPI - Chest Pain General Chief Complaint: Chest Pain Stated Complaint: chest pain Time Seen by Provider: 04/20/23 16:37 History of Present Illness HPI narrative: Patient is 30 weeks G1, P0 presenting with chest tightness and some shortness of breath for the last 2 days, this is is her first , she has also noted some nausea and vomiting, and earlier she felt some tingling in her hands that have resolved. No history of blood clots, no unilateral swelling or pain to her legs. Related Data Home Medications Medication Instructions Recorded Confirmed vit no.95-ferrous 1 tablet PO DAILY 02/23/23 02/23/23 fumarate 28 mg-folic acid 800 mcg tablet () Allergies Allergy/AdvReac Type Severity Reaction Status Date / Time alfalfa Allergy Hives Verified 02/01/23 16:00 Review of Systems Review of Systems: CONST: No fever. HEENT: No sore throat C/V: Chest tightness RESP: Shortness of breath GI: Nausea : No dysuria. M/S: No joint pain. SKIN: No rash. NEURO: [No headache or focal numbness or weakness] PSYCH: [No depression] [facility] Past Medical History Medical History (Updated 04/20/23 @ 18:55 by Chela Denny MD) Bipolar 1 disorder Constipation Right flank pain Surgical History Surgical History History of tonsillectomy Hx of appendectomy Hx of cholecystectomy Family History Family History Father Heart disease Social History Social History Smoking status: Never smoker Second hand tobacco smoke exposure: No Alcohol intake: current Drinks per week: 5 Substance use: current Substance use type: marijuana, crack/cocaine and methamphetamine Last use: t-1 Lack of Transportation: No Lack of Food: Never True Current Housing: I Have Housing Concerned About Future Housing: No Difficulty Paying Gas/Electric Bills: No Difficulty Paying for Meds: No Currently Unemployed: YES Education: High School Diploma/GED Difficulty w/ Childcare or Family Care: No Spiritual care concerns: No Exam Narrative: EXAMINATION OF ORGAN SYSTEMS/BODY AREAS: Constitutional: Vital signs per nursing GENERAL:[No acute distress, non-toxic appearing; slightly anxious.] HEAD: Normal with no signs of head trauma. EYES: EOMI, conjunctiva normal ENT: Hearing grossly intact LUNGS: Nonlabored breathing. HEART: [Regular rate and rhythm] ABD: [Soft], [nontender to palpation], gravid uterus EXT: Normal range of motion SKIN: [No rashes or lesions.] NEURO: [Alert and oriented x 3. No gross focal sensory or strength deficits.] PSYCH: Normal affect Course Vital Signs Vital signs: Vital Signs Temperature 98 F 04/20/23 16:08 Pulse Rate 89 04/20/23 16:08 Respiratory Rate 18 04/20/23 16:08 Blood Pressure 129/93 H 04/20/23 16:08 Pulse Oximetry 99 04/20/23 16:08 Oxygen Delivery Room Air 04/20/23 16:08 Temperature 98 F 04/20/23 16:08 Pulse Rate 98 04/20/23 19:10 Respiratory Rate 16 04/20/23 19:10 Blood Pressure 124/77 04/20/23 19:10 Pulse Oximetry 99 04/20/23 16:08 Oxygen Delivery Room Air 04/20/23 16:08 MDM - Chest Pain MDM Narrative Medical decision making narrative: ED COURSE AND MEDICAL DECISION MAKINF at 30wk preg presenting with chest pain. EKG done in triage negative for acute ischemic changes. Cardiac workup is initiated. EKG - 12-Lead: Performed at 1608. Interpreted by me. Sinus tachycardia. Rate 103. [Normal] axis. PA-interval 124. QRS duration 74. QTc 384. [No ST segment elevation or depression]. [T-wave normal]. Impression: No EKG evidence of acute ischemia or dysrhythmia. I did consider PE however she has no DVT symptoms, normal HR and O2 here, and no pleuritic chest pain. HEART score is 0 with no acute ischemic cuevas
--- NOTE | 2023-04-20 17:31 | PC.NURSE ---
Dr. Atkinson called at 1730. Reported reactive NST. No further orders given.
[2023-04-20] MEDS: diphenhydrAMINE HCl INJ 50 MG/ML VIAL 25 MG IV PUSH (17:48)
[2023-04-20] MEDS: METOCLOPRAMIDE HCL INJ 10 MG/2 ML VIAL IV PUSH (17:48)
[2023-04-20 19:10] VITALS: BP 124/77; PULSE 98; RESP 16
== END 2023-04-20 19:10 | disposition home or self-care (01) ==
PROVIDERS: Emergency Medicine; Emergency Provider Emergency Medicine; PCP Obstetrics & Gynecology
DX: O99.891 Other specified diseases and conditions complicating pregnancy (principal); R06.02 Shortness of breath; Z20.822 Contact with and (suspected) exposure to COVID-19; R00.0 Tachycardia, unspecified; Z90.49 Acquired absence of other specified parts of digestive tract; Z3A.30 30 weeks gestation of pregnancy
CPT/HCPCS: 36415; 71046; 80053; 83690; 84484; 85025; 85610; 85730; 87636; 93005; 96374; 96375; 99284; J1200; J2765

== ENCOUNTER 2023-06-07 13:22 | Emergency (ER) | payer OTHER, SELFPAY ==
[2023-06-07 13:53] VITALS: BP 119/71; PULSE 107; RESP 18; TEMP 36.3; O2SAT 100
--- NOTE | 2023-06-07 14:27 | ED.URI ---
HPI - URI/Sore Throat General Chief Complaint: Upper Respiratory Infection Stated Complaint: /Vomiting/Headache Time Seen by Provider: 06/07/23 14:27 Source: patient, RN notes reviewed and old records reviewed Mode of arrival: ambulatory Limitations: no limitations History of Present Illness HPI Narrative: 32-year-old female presents to the [facility] with complaints complaints of frontal headache and congestion since Tuesday. Has not taken anything for symptoms. Denies any chest pain, shortness of breath. Denies coughing. States that she is 8 months . Denies fevers. Patient is denying any abdominal pain this time. States she keeps holding her belly gets the baby keeps moving. Related Data Allergies Allergy/AdvReac Type Severity Reaction Status Date / Time alfalfa Allergy Hives Verified 06/07/23 14:24 Review of Systems Review of Systems: All systems reviewed & are unremarkable except as noted in HPI and below Constitutional: Constitutional: Reports no additional constitutional complaints Eyes: Eyes: Reports no additional eye complaints ENT: Reports as per HPI and Reports sinus pressure Cardiovascular: Cardiovascular: Reports no additional cardiovascular complaints, Denies chest pain and Denies dyspnea Respiratory: Respiratory: Reports no additional respiratory complaints, Denies chest congestion, Denies cough and Denies dyspnea Gastrointestinal: Gastrointestinal: Reports no additional gastrointestinal complaints, Denies abdominal pain, Denies nausea and Denies vomiting Musculoskeletal: Musculoskeletal: Reports no additional musculoskeletal complaints Integumentary/Breasts: Skin/Breast: Reports system reviewed and no additional complaints, except as docu Neurologic: Reports system reviewed and no additional complaints, except as documented Psychiatric: Psychiatric: Reports no additional psychiatric complaints Allergic/Immunologic: Allergic/Immunologic: Reports no additional allergic/immunologic complaints [facility] Past Medical History Medical History Bipolar 1 disorder Constipation Right flank pain Surgical History Surgical History History of tonsillectomy Hx of appendectomy Hx of cholecystectomy Family History Family History Father Heart disease Social History Social History Smoking status: Never smoker Second hand tobacco smoke exposure: No Alcohol intake: current Drinks per week: 5 Substance use: current Substance use type: marijuana, crack/cocaine and methamphetamine Last use: t-1 Lack of Transportation: No Lack of Food: Never True Current Housing: I Have Housing Concerned About Future Housing: No Difficulty Paying Gas/Electric Bills: No Difficulty Paying for Meds: No Currently Unemployed: YES Education: High School Diploma/GED Difficulty w/ Childcare or Family Care: No Spiritual care concerns: No Comments At the time of my signature, I reviewed and agree with the nursing past medical, surgical, social, and family history. There is no relevant family history pertinent to the patient complaint. Exam Const: General: cooperative, healthy appearing, no acute distress, well developed, alert, uncomfortable and well nourished Nutritional Appearance: well nourished Orientation/consciousness: patient oriented x3 Limitations: no limitations HENMT: Head: normal to inspection Ears: hearing grossly normal bilaterally, external ears normal, TM's normal bilaterally and EAC's normal Face/Nose/Sinus: Normal external nose present, Normal nares present, Normal nasal mucous membranes and turbinates present, Nasal discharge present clear bilateral, normal facial exam and face symmetric Face and sinus: normal facial exam and face symmetric Mouth:
--- NOTE | 2023-06-09 12:07 | PC.NURSE ---
final throat culture reviewed. no group a strep isolated . no change in pt plan of care
== END 2023-06-07 14:38 | disposition home or self-care (01) ==
PROVIDERS: Emergency Provider Nurse Practitioner
DX: O99.519 Diseases of the respiratory system complicating pregnancy, unspecified trimester (principal); Z3A.00 Weeks of gestation of pregnancy not specified; J34.89 Other specified disorders of nose and nasal sinuses; O99.891 Other specified diseases and conditions complicating pregnancy; R51.9 Headache, unspecified; Z20.822 Contact with and (suspected) exposure to COVID-19; O99.320 Drug use complicating pregnancy, unspecified trimester; F12.90 Cannabis use, unspecified, uncomplicated; F14.90 Cocaine use, unspecified, uncomplicated; F15.90 Other stimulant use, unspecified, uncomplicated
CPT/HCPCS: 87081; 87426; 87804; 87880; 99213; C9803; G0463

== ENCOUNTER 2023-06-07 15:12 | Observation (INO) | payer OTHER, SELFPAY ==
[2023-06-07] VITALS (47 sets, daily range): BP systolic 96–116; BP diastolic 68–94; PULSE 86–240; RESP 18; TEMP 36.5; O2SAT 92–100
--- NOTE | 2023-06-07 16:15 | OBADM ---
This patient, Michelle Medina, admitted to the OB room 116 for observation. Patient/family oriented to hospital policies and general routines including ID bracelet, bed and alarms, visiting hours, pain management, procedures, bathroom and other care routines, personal items, smoking policy, room service/diet, and visiting hours. Patient/Family are encouraged to report perceived risks to care and to ask questions if they do not understand what they are told or what they should do.
[2023-06-07 17:14] LABS: Appearance Urine Clear (Clear); Bacteria Urine None Seen /hpf; Bilirubin Urine Negative (Negative); Blood Urine Negative (Negative); Color Urine Yellow (Yellow); Glucose Urine UA Negative (Negative); Ketones Urine 4+ mg/dL (Negative); Leukocyte Esterase Ur Negative LEU/UL (Negative); Nitrate Urine Negative (Negative); Non Pathogenic Casts 0-2; Protein Urine Trace mg/dL (Negative); RBC Urine 0-2 /hpf (0-2); Specific Grav Ur 1.021 (1.001-1.035); Squamous Epithelial Cell Urine None seen /hpf (Few); WBC Urine 0-5 /hpf; pH Urine 7.5 (5.0-9.0)
[2023-06-07 17:18] LABS: Add Urine Microscopic? YES
--- NOTE | 2023-06-07 17:59 | PC.NURSE ---
Dr. Dahl informed of pt's initial arrival with c/o RUQ going into flank pain- worse since Tuesday when she was in a wedding constitution party. Pt and significant other were aggressive with the initial nurse that took them to the room stating she needed to be induced because she was in so much pain. Some irregular contractions were noted on the monitor and palpated mild, pt's pain was worse with them. SVE closed/ 60%/ -2 station. No vaginal bleeding or leakage of fluid. Pt has a history of kidney stones, has had her gallbladder removed, discussed BP's, pt took Tylenol for the pain several days ago without any relief and hasn't tried any since, hx of meth use- but clean since 2013 except marijuana use. Discussed when I first went in room pt was tearful and rating pain a 9, but she has periods when she doesn't appear to be in any discomfort. Pt reports some pain with urination. Applied heat to flank area that brought pain down to a 7. Pt reports having a cough, but I didn't hear any coughing while I was in the room. Informed of UA results including 4+ ketones and that I had already fed pt. Order received to try Flexeril.
[2023-06-07] MEDS: CYCLOBENZAPRINE HCL 10 MG TABLET PO (18:33)
--- NOTE | 2023-06-08 12:10 | PM.OBTRLD ---
OB - Triage/Final Diagnosis Visit Information Comments/Additional reasons for admission: I have [facility] the [facility], and determined that she would benefit from observation care. Evaluation Laboratory results: Laboratory Tests 06/07/23 16:59 Urine Color Yellow Urine Appearance Clear Urine pH 7.5 Ur Specific [place] 1.021 Urine Protein Trace Urine Glucose (UA) Negative Urine Ketones 4+ H Ur Blood (Man) Negative Urine Nitrate Negative Urine Bilirubin Negative Urine Urobilinogen 1.0 Leukocyte Esterase Rfl Negative Urine RBC 0-2 Urine WBC 0-5 Ur Squamous Epith Cells None seen Urine Bacteria None seen Urine Casts 0-2 Vital signs: Vital Signs - 24 hr 06/07/23 15:31 06/07/23 15:36 06/07/23 15:41 Temperature Pulse Rate 102 H Respiratory Rate Blood Pressure 115/83 Pulse Oximetry 98 98 98 Oxygen Delivery 06/07/23 15:46 06/07/23 15:51 06/07/23 15:56 Temperature Pulse Rate 101 H Respiratory Rate Blood Pressure 96/69 L Pulse Oximetry 98 97 99 Oxygen Delivery 06/07/23 16:00 06/07/23 16:01 06/07/23 16:06 Temperature Pulse Rate 86 Respiratory Rate Blood Pressure 115/68 Pulse Oximetry 100 97 Oxygen Delivery 06/07/23 16:11 06/07/23 16:16 06/07/23 16:21 Temperature Pulse Rate 97 Respiratory Rate Blood Pressure 104/79 Pulse Oximetry 92 100 98 Oxygen Delivery 06/07/23 16:26 06/07/23 16:30 06/07/23 16:31 Temperature Pulse Rate 98 Respiratory Rate Blood Pressure 116/94 H Pulse Oximetry 100 97 Oxygen Delivery 06/07/23 16:36 06/07/23 16:41 06/07/23 16:45 Temperature Pulse Rate 103 H Respiratory Rate Blood Pressure 116/84 Pulse Oximetry 100 98 Oxygen Delivery 06/07/23 16:52 06/07/23 16:56 06/07/23 17:00 Temperature Pulse Rate 119 H Respiratory Rate Blood Pressure 115/80 Pulse Oximetry 99 100 Oxygen Delivery 06/07/23 17:01 06/07/23 17:06 06/07/23 17:11 Temperature Pulse Rate Respiratory Rate Blood Pressure Pulse Oximetry 97 99 100 Oxygen Delivery 06/07/23 17:15 06/07/23 17:16 06/07/23 17:17 Temperature Pulse Rate 121 H 124 H Respiratory Rate Blood Pressure 109/78 110/80 Pulse Oximetry 97 Oxygen Delivery 06/07/23 17:21 06/07/23 17:26 06/07/23 17:30 Temperature Pulse Rate 109 H Respiratory Rate Blood Pressure 107/71 Pulse Oximetry 99 99 Oxygen Delivery 06/07/23 17:31 06/07/23 17:36 06/07/23 17:41 Temperature Pulse Rate Respiratory Rate Blood Pressure Pulse Oximetry 97 99 100 Oxygen Delivery 06/07/23 17:45 06/07/23 17:46 06/07/23 17:51 Temperature Pulse Rate 112 H Respiratory Rate Blood Pressure 106/70 Pulse Oximetry 100 99 Oxygen Delivery 06/07/23 17:56 06/07/23 18:01 06/07/23 18:06 Temperature Pulse Rate Respiratory Rate Blood Pressure Pulse Oximetry 100 100 98 Oxygen Delivery 06/07/23 18:11 06/07/23 18:16 06/07/23 18:21 Temperature Pulse Rate Respiratory Rate Blood Pressure Pulse Oximetry 98 97 99 Oxygen Delivery 06/07/23 18:26 06/07/23 18:31 06/07/23 18:45 Temperature Pulse Rate 114 H 102 H Respiratory Rate Blood Pressure 104/77 110/72 Pulse Oximetry 99 98 Oxygen Delivery 06/07/23 16:15 06/07/23 16:10 06/07/23 16:15 Temperature 97.7 F 97.7 F Pulse Rate Respiratory Rate 18 18 Blood Pressure Pulse Oximetry Oxygen Delivery Room Air 06/07/23 16:26 Temperature Pulse Rate Respiratory Rate Blood Pressure Pulse Oximetry 100 Oxygen Delivery Final Diagnosis (1) Musculoskeletal back pain: Code(s): M54.9 - Dorsalgia, unspecified Status: Acute
== END 2023-06-07 19:22 | disposition home or self-care (01) ==
PROVIDERS: Admitting Provider Obstetrics & Gynecology; Visit Provider Obstetrics & Gynecology
DX: O99.891 Other specified diseases and conditions complicating pregnancy (principal); M54.9 Dorsalgia, unspecified; Z3A.36 36 weeks gestation of pregnancy
CPT/HCPCS: 81001; 87081; 87426; 87804; 87880; A9270; C9803; G0378; G0379

== ENCOUNTER 2023-06-12 05:46 | Emergency (ER) | payer OTHER, SELFPAY ==
[2023-06-12 05:47] VITALS: BP 116/81; PULSE 97; RESP 20; TEMP 36.5; O2SAT 100
[2023-06-12 06:16] VITALS: O2SAT 100
[2023-06-12] MEDS: SODIUM CHLORIDE 0.9% IV 1,000 ML 999 ML IV CONT ×2 (06:47→08:22)
[2023-06-12 06:54] LABS: Basophils Percent Auto 0.3 % (0.2-1.2); Eosinophils Absolute Auto 0.2 K/mm3 (0-0.3); Eosinophils Percent Auto 1.5 % (0-4.4); Hematocrit 37.5 % (37.0-47.0); Immature Granulocyte Absolute 0.06 K/mm3 (0.00-0.031); Immature Granulocyte Percent A 0.5 % (0-0.5); Lymphocytes Percent Auto 18.8 % (18.3-44.2); Mean Corpuscular Hemoglobin 28.1 pg (26-34); Mean Corpuscular Volume 87.8 fl (80-100); Mean Platelet Volume 10.5 fl (7.4-10.4); Monocytes Absolute Auto 0.9 K/mm3 (0.1-0.6); Monocytes Percent Auto 7.1 % (2.6-8.5); Neutrophils Absolute Auto 9.2 K/mm3 (1.3-6.7); Neutrophils Percent Auto 71.8 % (45.5-73.1); Platelet Count Result 230 k/mm3 (150-375); Red Blood Count 4.27 M/mm3 (4.2-5.4); Red Cell Distribution Width 13.6 % (11.5-14.5); White Blood Count 12.8 K/mm3 (4.5-10.0)
[2023-06-12 07:05] LABS: Alanine Aminotransferase 16 U/L (6-35); Albumin Level 3.2 g/dL (3.5-5.1); Alkaline Phosphatase 173 U/L (38-126); Anion Gap 5 mmol/L (8-16); Aspartate Amino Transferase 18 U/L (14-36); Bilirubin,Total 0.3 mg/dL (0.2-1.3); Blood Urea Nitrogen 7 mg/dL (7-17); Calcium 8.5 mg/dL (8.4-10.2); Carbon Dioxide 22 mmol/L (22-30); Chloride 109 mmol/L (98-107); Estimated CRCL calculation 149 ml/min; Estimated Glomerular Filt Rate > 60; Glucose 89 mg/dL (65-110); Potassium 4.1 mmol/L (3.4-5.0); Sodium 136 mmol/L (137-145)
--- NOTE | 2023-06-12 08:02 | ED.GENADULT ---
HPI - General Adult General Chief complaint: Upper Respiratory Infection Stated complaint: URI, N/V Time Seen by Provider: 06/12/23 08:02 History of Present Illness HPI narrative: Patient is a 32-year-old female who presents to the emergency department this morning with multiple complaints. Patient states that within the past week she has been having some URI symptoms including a cough, congestion, and sinus pressure. Patient is approximately 8 months and states that she has also been having some nausea and vomiting and an inability to keep food or fluids down. Patient denies any chest pain, shortness of breath, nausea, vomiting, abdominal pain, dysuria, hematuria, constipation, diarrhea, melena, hematochezia, fevers or chills. Patient also denies any headaches, dizziness, lightheadedness, blurry visions, focal weakness, numbness and or tingling. There are no other modifying, alleviating, or precipitating factors at this time. Related Data Allergies Allergy/AdvReac Type Severity Reaction Status Date / Time alfalfa Allergy Hives Verified 06/12/23 06:19 Review of Systems Review of Systems: All systems are reviewed and are negative unless stated otherwise in the HPI. [facility] Past Medical History Medical History Bipolar 1 disorder Constipation Right flank pain Surgical History Surgical History History of tonsillectomy Hx of appendectomy Hx of cholecystectomy Family History Family History Father Heart disease Social History Social History Smoking status: Never smoker Second hand tobacco smoke exposure: No Alcohol intake: current Drinks per week: 5 Substance use: current Substance use type: marijuana, crack/cocaine and methamphetamine Last use: t-1 Lack of Transportation: No Lack of Food: Never True Current Housing: I Have Housing Concerned About Future Housing: No Difficulty Paying Gas/Electric Bills: No Difficulty Paying for Meds: No Currently Unemployed: YES Education: High School Diploma/GED Difficulty w/ Childcare or Family Care: No Spiritual care concerns: No Exam Narrative: General: Alert, awake, afebrile, in no acute distress. HEENT: PERRL, no rhinorrhea, no post nasal drip, oropharynx clear. Neck: Trachea midline, no JVD, no lymphadenopathy. Cardiovascular: Regular rate and rhythm, no murmurs, rubs or gallops, no peripheral edema. Respiratory: Clear to auscultation bilaterally, no tachypnea, no wheezing, no rhonchi, no rubs, no respiratory distress. Abdomen: Soft, nontender, nondistended, no rebound, no guarding, no peritoneal signs, gravid. Musculoskeletal: No joint swelling or deformity, normal muscle tone. Skin: No rashes or petechia, no signs of infection. Psychiatric: Alert and oriented, normal behavior and judgment for situation. Neurological: Alert and oriented to person, place, and time. Follows all commands. No focal deficits, speech is clear and fluent. Course Vital Signs Vital signs: Vital Signs Temperature 97.7 F 06/12/23 05:47 Pulse Rate 97 06/12/23 05:47 Respiratory Rate 20 06/12/23 05:47 Blood Pressure 116/81 06/12/23 05:47 Pulse Oximetry 100 06/12/23 05:47 Oxygen Delivery Room Air 06/12/23 05:47 Temperature 97.7 F 06/12/23 05:47 Pulse Rate 97 06/12/23 05:47 Respiratory Rate 20 06/12/23 05:47 Blood Pressure 116/81 06/12/23 05:47 Pulse Oximetry 100 06/12/23 06:16 Oxygen Delivery Room Air 06/12/23 06:16 Medical Decision Making [facility] Narrative Medical decision making narrative: The patient was evaluated by myself in the emergency department. History is obtained from patient who is an independent historian and physical exam was performed. External medical records were r
[2023-06-12] MEDS: ONDANSETRON INJ 4 MG/2 ML VIAL IV PUSH (08:22)
[2023-06-12 08:40] VITALS: BP 142/88; PULSE 90; RESP 16; O2SAT 98
[2023-06-12 08:58] LABS: Influenza A QL RT-PCR Negative (Negative); Influenza B QL RT-PCR Negative (Negative); SARS-CoV-2 RNA PCR Negative (Negative)
[2023-06-12 08:58] LABS: Appearance Urine Cloudy (Clear); Bacteria Urine 2+ /hpf; Bilirubin Urine Negative (Negative); Blood Urine Negative (Negative); Color Urine Yellow (Yellow); Glucose Urine UA Negative (Negative); Ketones Urine Negative (Negative); Leukocyte Esterase Ur 1+ LEU/UL (Negative); Need Manual Microscopic Reviewed; Nitrate Urine Negative (Negative); Non Pathogenic Casts 0-2; Protein Urine Negative (Negative); RBC Urine 0-2 /hpf (0-2); Specific Grav Ur 1.016 (1.001-1.035); Squamous Epithelial Cell Urine Many /hpf (Few); Urobilinogen Urine 0.2 mg/dL (<2.0); WBC Urine 0-5 /hpf
[2023-06-12 09:00] LABS: Add Urine Microscopic? YES
[2023-06-12 11:10] VITALS: BP 132/76; PULSE 80; RESP 16; O2SAT 99
== END 2023-06-12 11:11 | disposition home or self-care (01) ==
PROVIDERS: Student in an Organized Health Care Education/Training Program; Emergency Provider Emergency Medicine
DX: O23.43 Unspecified infection of urinary tract in pregnancy, third trimester (principal); N39.0 Urinary tract infection, site not specified; O21.9 Vomiting of pregnancy, unspecified; Z3A.00 Weeks of gestation of pregnancy not specified; Z20.822 Contact with and (suspected) exposure to COVID-19
CPT/HCPCS: 36415; 80053; 81001; 85025; 87636; 96361; 96374; 99284; J2405; J7030

== ENCOUNTER 2023-06-26 06:17 | Inpatient (IN) | payer OTHER, SELFPAY ==
[2023-06-26] VITALS (151 sets, daily range): BP systolic 90–188; BP diastolic 43–174; PULSE 63–124; TEMP 36–36.6; O2SAT 97–100; BMI 37.4
--- NOTE | 2023-06-26 07:09 | WPDANESEPP ---
Anes - Eval Pre Procedure Procedure: labor epidural Date/Time: 06/26/23 07:09 Surgeon: alesha Preop Diagnosis: pain during labor Pre Op Diagnosis: IOL Patient Data Age: 32 Gender: F Height: Weight: Last Vital Signs Pulse 110 H 06/26/23 06:45 BP 124/77 06/26/23 06:45 Allergies Allergy/AdvReac Type Severity Reaction Status Date / Time alfalfa Allergy Hives Verified 06/12/23 06:19 Home Medications Medication Instructions Recorded Confirmed Type metoclopramide HCl 5 mg tablet 5 mg PO TID PRN nausea and 02/23/23 06/07/23 Rx vomiting #30 tabs Patient hx anesthesia problems: none Family hx anesthesia problems: none Results Review: All pre-operative results and documents have been reviewed as part of the pre-operative evaluation. [facility] Past Medical History Medical History Bipolar 1 disorder Constipation Right flank pain Surgical History Surgical History History of tonsillectomy Hx of appendectomy Hx of cholecystectomy Family History Family History Father Heart disease Social History Social History Smoking status: Never smoker Second hand tobacco smoke exposure: No Alcohol intake: current Drinks per week: 5 Substance use: current Substance use type: marijuana, crack/cocaine and methamphetamine Last use: unsure Lack of Transportation: No Lack of Food: Never True Current Housing: I Have Housing Concerned About Future Housing: No Difficulty Paying Gas/Electric Bills: No Difficulty Paying for Meds: No Currently Unemployed: YES Education: High School Diploma/GED Difficulty w/ Childcare or Family Care: No Spiritual care concerns: No Exam Day of Procedure 06/26/23 07:09
[2023-06-26 07:14] LABS: Basophils Percent Auto 0.3 % (0.2-1.2); Eosinophils Absolute Auto 0.1 K/mm3 (0-0.3); Eosinophils Percent Auto 1.2 % (0-4.4); Hematocrit 37.7 % (37.0-47.0); Immature Granulocyte Absolute 0.07 K/mm3 (0.00-0.031); Immature Granulocyte Percent A 0.6 % (0-0.5); Lymphocytes Percent Auto 15.9 % (18.3-44.2); Mean Corpuscular HGB Conc 31.8 g/dl (32-36); Mean Corpuscular Hemoglobin 27.1 pg (26-34); Mean Corpuscular Volume 85.3 fl (80-100); Mean Platelet Volume 11.4 fl (7.4-10.4); Monocytes Absolute Auto 0.6 K/mm3 (0.1-0.6); Monocytes Percent Auto 5.2 % (2.6-8.5); Neutrophils Absolute Auto 8.7 K/mm3 (1.3-6.7); Neutrophils Percent Auto 76.8 % (45.5-73.1); Platelet Count Result 274 k/mm3 (150-375); Red Blood Count 4.42 M/mm3 (4.2-5.4); Red Cell Distribution Width 13.6 % (11.5-14.5); White Blood Count 11.3 K/mm3 (4.5-10.0)
[2023-06-26] MEDS: LACTATED RINGERS 1,000 ML 125 ML IV CONT ×2 (07:21→15:13)
[2023-06-26] MEDS: AMPICILLIN 2 GM/NS 100 ML 2 GM/100 ML BAG IVPB (07:22)
[2023-06-26 07:29] LABS: Amphetamine Screen Urine Negative (Negative); Barbiturate Screen Urine Negative (Negative); Benzodiazepines Screen Urine Negative (Negative); Cannabinoid Screen Urine Positive (Negative); Cocaine Screen Urine Negative (Negative); Methadone Screen Urine Negative (Negative); Opiate Screen Urine Negative (Negative); Phencyclidine Screen Urine Negative (Negative)
[2023-06-26] MEDS: FAMOTIDINE 20 MG/2 ML VIAL IV PUSH (07:39)
[2023-06-26] MEDS: miSOPROStol 25 MCG TABLET 50 MCG PO (07:41)
--- NOTE | 2023-06-26 07:58 | LDADM ---
This patient, Michelle Medina, was admitted to Labor/Delivery/Recovery 108 on 06/26/23 at 06:17. Plans for labor, pain management and were discussed with patient. Patient/family oriented to hospital policies and general routines including ID bracelet, bed and alarms, visiting hours, pain management, procedures, bathroom and other care routines, personal items, smoking policy, room service/diet and guest tray routines, security routines, and visiting hours. Patient/Family are encouraged to report perceived risks to care and to ask questions if they do not understand what they are told or what they should do. See OBIX for further documentation.
--- NOTE | 2023-06-26 09:31 | PC.NURSE ---
Phone call from care coordination re: consult for marijuana use. No new orders received at this time.
[2023-06-26] MEDS: AMPICILLIN 1 GM/NS 50 ML 1 GM/50 ML BAG IVPB ×4 (11:05→23:00)
--- NOTE | 2023-06-26 11:47 | WPDHPUPDATE1 ---
History and Physical Update Update Date/Time: 06/26/23 11:47 32-year-old primiparous female at term who presents for elective induction of labor at term. Reassuring heart tones. Status post Cytotec. artificial rupture of membranes -clear. Cervical exam 1 cm, soft, 50%, -3. Expectant management. History and Physical has been reviewed, including an updated exam of the patient. There are NO changes in the patient's condition. Risks, benefits, and alternatives have been discussed and questions answered. Patient agrees to proceed with procedure.
[2023-06-26] MEDS: fentaNYL CITRATE INJ (*CRX) 100 MCG/2 ML VIAL IV PUSH ×2 (13:03→15:12)
[2023-06-26] MEDS: OXYTOCIN 30 UNITS/NS 500 ML 30 UNITS/500 ML BAG IV CONT (13:42)
[2023-06-26] MEDS: ONDANSETRON INJ 4 MG/2 ML VIAL IV PUSH (15:12)
--- NOTE | 2023-06-26 17:16 | PM.OBPNLAB ---
Pain Control Date/time seen: 06/26/23 17:16 Comments: Patient seen after epidural, feeling much more comfortable. Pelvic Exam Dilation (cm): 3 Effacement (%): 90 station: -2 Amniotic membrane status: Ruptured Assessment and Plan Comments: Band of scar tissue palpated 2/2 prior LEEP procedure. Attempted to break up scar tissue, SVE 3cm after exam. Continue pitocin per protocol.
[2023-06-26] MEDS: LORATADINE 10 MG TABLET PO (19:17)
[2023-06-26] MEDS: CALCIUM CARBONATE (TUMS) 500 MG (200 MG ELEMENTAL) PO (21:47)
[2023-06-27] VITALS (23 sets, daily range): BP systolic 91–125; BP diastolic 30–83; PULSE 78–111; RESP 16–18; TEMP 36.2–37.1; O2SAT 99–100
--- NOTE | 2023-06-27 00:42 | PM.OBPRVD ---
OB - Vaginal Delivery Note Procedure Delivery date: 06/27/23 Events: Elective Induction of Labor Induction method: Per Misoprostol Protocol Delivery augmentation: Rupture of Membranes and Pitocin Delivery monitor: External FHT and External Uterine Route of delivery: Laceration Description: Perineal - 1st Degree Delivery repair: vicryl Specimen: No Quantitative Blood Loss (ml): 50 Anesthesia type: Epidural Disposition: Floor Complications: No immediate complications [place] Baby Date of : 06/27/23 Weeks of gestation at delivery: 39 gender: Female presentation: vertex position: Left Occiput Anterior Placenta delivery description: Expressed
[2023-06-27] MEDS: OXYTOCIN 30 UNITS/NS 500 ML 30 UNITS/500 ML BAG 125 UNITS IV CONT (01:10)
--- NOTE | 2023-06-27 03:03 | OBPPTRN ---
Patient transferred to post room #284 via wheelchair. Support person present. Oriented to unit, room, information board, rooming in, admission packet and security measures. Patient verbalizes understanding.
[2023-06-27] MEDS: IBUPROFEN 600 MG TABLET PO ×3 (06:04→20:03)
--- NOTE | 2023-06-27 08:23 | WPDANLDPN2 ---
Anes-Prog Note L&D Date/Time: 06/27/23 08:23 Comfortable throughout: labor and delivery Neuraxial method: epidural Epidural/Spinal procedure site: clean & non-tender Neuro status: Neuro function grossly intact. Cardiovascular status: normal Respiratory status: normal Airway patency: baseline Mental status: baseline Post-Op hydration status: normal Vital Signs: Last Vital Signs Temp 37.1 C 06/27/23 03:30 Pulse 102 H 06/27/23 03:30 Resp 18 06/27/23 03:30 BP 118/66 06/27/23 03:30 Pulse Ox 99 06/27/23 03:30 O2 Del Method Room Air 06/26/23 07:56 Pain score (VAS): 3 I/O: Intake & Output 06/26/23 06/27/23 06/27/23 23:59 07:59 15:59 Intake Total 50 Balance 50 Post-procedural complaints: none Patient feedback: Patient satisfied with anesthetic care.
--- NOTE | 2023-06-27 13:25 | PC.NURSE ---
[id number] Introductions were made, then consulted with patient to assess needs related to . Mother led the conversation with her?plans to feed?her infant and the?experience so far. Encouraged understanding of the benefits of skin to skin (demonstrating unwrapping and placing upright on her chest), stimulating with massage touch, changing positions to encourage wakefulness, how to watch for early feeding cues, responsive feeding, feeding on demand (aiming for 8-12 times in 24 hours, about every 2-3 hours), milk production, building/maintaining a milk supply, duration of feeding, signs of adequate intake/output and how to record on the feeding sheet. Mother works well with her with encouragement and education. Reviewed positioning and ear, shoulder, hip alignment, supporting the breast to facilitate a deep latch, asymmetrical latch (off-center), leading with the chin with a big, open, wide gape and body close to mother. Infant latched optimally to the left breast in cross cradle position. Education given to the mother of how to visualize the suckling (with good rocking jaw motion), swallows (dropping of the lower jaw) and how to listen for drinking at the breast (the ka sound). Infant was able to maintain latch without pain to mother protecting the nipple with optimal positioning and latching. Reviewed comfort measures of healing with a warm, wet washcloth to rinse breast, then leave open to air-dry, good handwashing when or touching the breast/nipples to prevent infection. Mother voiced understanding of skin to skin, stimulating with massage touch, responsive feedings, talking to infant to encourage if it has been 2 -2.5 hours since the start of the last , to call if does not latch, or if there is discomfort with . Resources used for education were facilitated with the visual educational handouts, tool, mom and baby guide, Inpatient/outpatient resources provided with feeding sheet, name written on the communication board, and the mom/baby guide. Mother voiced understanding of information, demonstrated learning, and will call if there is a request for assistance.
--- NOTE | 2023-06-27 15:48 | PCCCNOTE ---
Care Coordination met with pt. and FOB this AM (06/27/23) to discuss discharge planning. Pt. will return home with FOB and paternal grandparents. Pt. states they have everything needed to safely bring baby home including car seat and sleeping area. Pt. was current with [facility] during and will renew now that baby has been delivered. Pt. will continue to breast feed. She is still arranging a pharmacy affairs assistant for baby and denies any current or old DCFS cases. Pt. tested positive for marijuana at time of admission but baby was not tested. Pt. and baby are bonding well and baby has no withdrawal symptoms. Will follow.
[2023-06-27 16:17] LABS: Rapid Plasma Reagin Non-Reactive (NonReactive)
[2023-06-27] MEDS: BENZOCAINE 20% AER SPR (*SP) 56 GM CAN 1 SPRAY (20:36)
[2023-06-27] MEDS: WITCH HAZEL 40 PADS 1 PAD (20:37)
[2023-06-28 04:59] LABS: Hematocrit 34.4 % (37.0-47.0); Hemoglobin 11.1 g/dL (12.0-15.0)
[2023-06-28 07:50] VITALS: BP 97/57; PULSE 83; RESP 16; TEMP 36.3; O2SAT 100
--- NOTE | 2023-06-28 08:37 | WPDANLDPN2 ---
Anes-Prog Note L&D Date/Time: 06/28/23 08:37 Comfortable throughout: labor and delivery Neuraxial method: epidural Epidural/Spinal procedure site: clean & non-tender Neuro status: Neuro function grossly intact. Cardiovascular status: normal Respiratory status: normal Airway patency: baseline Mental status: baseline Post-Op hydration status: normal Vital Signs: Last Vital Signs Temp 36.3 C L 06/28/23 07:50 Pulse 83 06/28/23 07:50 Resp 16 06/28/23 07:50 BP 97/57 L 06/28/23 07:50 Pulse Ox 100 06/28/23 07:50 O2 Del Method Room Air 06/27/23 19:55 Pain score (VAS): 10 I/O: Intake & Output 06/27/23 06/28/23 06/28/23 23:59 07:59 15:59 Intake Total 500 Balance 500 Post-procedural complaints: none Patient feedback: Patient satisfied with anesthetic care.
--- NOTE | 2023-06-28 09:01 | PM.OBPNVD ---
OB - PN: Subj Subjective Date/time seen: 06/28/23 09:01 Interval history: PPD#1 pain well controlled anxious as she has not slept well with care for her and baby hx of BPD, would like to restart abilify. Discussed this is safe with Peds appt on tuesday, would like discharge today OB - PN: Obj Data Labs 06/28/23 04:44 Labs: Laboratory Results - last 24 hr 06/26/23 06/28/23 07:05 04:44 Hgb 11.1 L Hct 34.4 L RPR Non-reactive OB - PN A/P Assessment and Plan (1) Bipolar disorder: Code(s): F31.9 - Bipolar disorder, unspecified Status: Acute Assessment and Plan: Restart abilify Plan day: 1 Plan: discharge home Comments: follow up in 1 week for mood/med check Resources discussed for Time Spent With Patient Time: Total time spent is greater than 50% in coordination of care (as documented) at patient's floor/unit and/or counseling patient: Review of Systems Review of Systems: All systems reviewed & are unremarkable except as noted in HPI and below Exam Const: General: comfortable, no acute distress, alert and awake Orientation/consciousness: patient oriented x3 Resp: Effort & Inspection: normal respiratory effort
--- NOTE | 2023-06-28 09:16 | PM.OBDSVD ---
DS: Admitting Diagnosis Discharge Date 06/28/23 Admitting Diagnosis elective induction of labor DS: Discharge Diagnosis Discharge Diagnosis (1) (spontaneous vaginal delivery): Code(s): O80 - Encounter for full-term uncomplicated delivery Status: Acute (2) Bipolar disorder: Code(s): F31.9 - Bipolar disorder, unspecified Status: Acute OB - DS: Summary OB Procedures : None OB Procedures Intrapartum: Spontaneous Vag Delivery OB Procedures: : None Peripartum Data Laceration Description: Perineal - 1st Degree Time Spent with Patient Time attestation: Total time spent providing and/or coordinating discharge services: DS: Data Data Completed and Pending Labs on day of discharge: Labs from last 24 hours 06/28/23 06/26/23 04:44 07:05 Hgb 11.1 L Hct 34.4 L RPR Non-reactive Discharge Plan Discharge Attending physician on discharge: Donato Dahl Discharging Clinician: Donato Dahl Patient Disposition: Home, Self-Care Activity: may shower and pelvic rest Diet: as tolerated Discharge Instructions: ACTIVITY/EXERCISE Recovery is a progressive process.? It may take 6 to 8 weeks to return to pre- activity levels.? Take time to rest each day.? Limit visitors for the first few weeks.? If you smoke you are advised to quit.? Avoid second-hand smoke exposure and do not let people smoke in your home.? No lifting greater than 10 pounds & nothing per vagina x 6 wks. EPISIOTOMY/STITCHES The stitches are absorbable and do not need to be removed.? Rinse area with warm water after going to the bathroom.? Gently dry perineal area from front to back.? Change perineal pads frequently.? You may use a plastic sitz bath kit or sit in a tub of 6 to 8 inches of warm water for 30 minutes 1 to 3 times per day.? You may apply Tucks when you change your pad or use as hygienic wipes. BREAST CARE Wear a well fitting support bra, day and night.?? IF :? Continue your vitamin daily as long as you are breast feeding. ? Wash breasts with warm water only during your daily shower ? Do not wash breast before or after each feeding as this may cause dry, cracked nipples ? For sore nipples, apply colostrum or breast milk to promote healing.? Purified lanolin may also be applied to nipple and cover with breast pad.? Lanolin does not need to be washed off prior to next feeding. ? If breasts are engorged, regularly remove milk from the breasts every 1 1/2 - 3 hours (via or use of a hospital grade pump).? For additional comfort, apply cold compresses for 10 - 15 minutes as needed. ? If using breast pads, change when damp. ? For advice call the office ? ?VAGINAL DISCHARGE ?Bleeding diminishes in amount each day.? The color will change from red to pink to yellow-white.? The discharge may last 2 - 6 weeks.? It may increase and become bright red with activity but rest should relieve this.? Do not douche or use tampons. ? ?HEMORRHOIDS/CONSTIPATION ?If they appear in or at the time of delivery, they will slowly disappear.? Use of Tucks, sitz baths, or local medication will give relief.? Avoid constipation.? You can take over the counter Colace &/or Metamucil (as directed) to treat and avoid constipation. ?ABDOMINAL CRAMPS ? After- pains may be felt when .? Talk with your doctor about pain medication. ? ?MENSTRUATION ?You may start to menstruate in 6 - 10 weeks if you are not or within 6 months if you are .? The first two periods are often irregular and may be very heavy with clots.? It may take a few months to establish a regular cycle and it may be somewhat different in length from before . ? ?SEXUAL INTERCOURSE ?You may resume intercourse after approximately six weeks or when the perineal area is not tender and vaginal blee
[2023-06-28] MEDS: IBUPROFEN 600 MG TABLET PO (09:26)
[2023-06-28] MEDS: MULTIVIT/MIN/PREN/FOL AC/IRON TABLET 1 TAB PO (09:26)
[2023-06-28] MEDS: ACETAMINOPHEN 325 MG TABLET 650 MG PO (09:27)
[2023-06-29 08:38] VITALS: BP 120/80; PULSE 85; RESP 18; TEMP 36.6; O2SAT 100
== END 2023-06-28 13:30 | disposition home or self-care (01) | DRG 560 ==
LOC: ANHLDR 06:19 → ANHOB2 06-27 03:11
PROVIDERS: Admitting Provider Obstetrics & Gynecology; Visit Provider Obstetrics & Gynecology
DX: O99.824 Streptococcus B carrier state complicating childbirth (principal); O99.344 Other mental disorders complicating childbirth; F31.9 Bipolar disorder, unspecified; O70.0 First degree perineal laceration during delivery; Z3A.39 39 weeks gestation of pregnancy; Z37.0 Single live birth
CPT/HCPCS: 36415; 80307; 85014; 85018; 85025; 86592; 86850; 86900; 86901; A9270; J0290; J2405; J2590; J2795; J3010; J7120

== ENCOUNTER 2023-08-30 09:20 | Emergency (ER) | payer OTHER, SELFPAY ==
[2023-08-30 09:38] VITALS: BP 125/66; PULSE 94; RESP 16; TEMP 36.4; O2SAT 100
--- NOTE | 2023-08-30 10:12 | ED.GENADULT ---
HPI - General Adult General Chief complaint: Upper Respiratory Infection Stated complaint: scratchy throat, COVID/FLU exp Time Seen by Provider: 08/30/23 10:12 Source: patient, RN notes reviewed and old records reviewed Mode of arrival: ambulatory Limitations: no limitations History of Present Illness HPI narrative: 32-year-old female presents to the [facility] with flu and COVID exposure, scratchy throat. Denies fevers. Reports that she has been sneezing and has a runny nose, no congestion. No treatment prior to arrival Related Data Allergies Allergy/AdvReac Type Severity Reaction Status Date / Time alfalfa Allergy Hives Verified 08/30/23 10:47 Review of Systems Review of Systems: All systems reviewed & are unremarkable except as noted in HPI and below Constitutional: Constitutional: Reports no additional constitutional complaints Eyes: Eyes: Reports no additional eye complaints ENT: Reports as per HPI, Reports nasal discharge and Reports sore throat Cardiovascular: Cardiovascular: Reports no additional cardiovascular complaints, Denies chest pain and Denies dyspnea Respiratory: Respiratory: Reports no additional respiratory complaints, Denies chest congestion, Denies cough and Denies dyspnea Gastrointestinal: Gastrointestinal: Reports no additional gastrointestinal complaints, Denies abdominal pain, Denies nausea and Denies vomiting Musculoskeletal: Musculoskeletal: Reports no additional musculoskeletal complaints Integumentary/Breasts: Skin/Breast: Reports system reviewed and no additional complaints, except as docu Neurologic: Reports system reviewed and no additional complaints, except as documented Psychiatric: Psychiatric: Reports no additional psychiatric complaints Allergic/Immunologic: Allergic/Immunologic: Reports no additional allergic/immunologic complaints PMFSH Past Medical History Medical History Bipolar 1 disorder Constipation Right flank pain Surgical History Surgical History History of tonsillectomy Hx of appendectomy Hx of cholecystectomy Family History Family History Father Heart disease Social History Social History Smoking status: Never smoker Second hand tobacco smoke exposure: Yes Alcohol intake: current Drinks per week: 5 Substance use: current Substance use type: marijuana, crack/cocaine and methamphetamine Last use: unsure Lack of Transportation: No Lack of Food: Never True Current Housing: I Have Housing Concerned About Future Housing: No Difficulty Paying Gas/Electric Bills: No Difficulty Paying for Meds: No Currently Unemployed: YES Education: High School Diploma/GED Difficulty w/ Childcare or Family Care: No Spiritual care concerns: No Comments At the time of my signature, I reviewed and agree with the nursing past medical, surgical, social, and family history. There is no relevant family history pertinent to the patient complaint. Exam Const: General: cooperative, healthy appearing, comfortable, no acute distress, well developed, alert and well nourished Nutritional Appearance: well nourished Orientation/consciousness: patient oriented x3 Limitations: no limitations HENMT: Head: normal to inspection Ears: hearing grossly normal bilaterally, external ears normal, TM's normal bilaterally, EAC's normal, mastoids normal and no periauricular adenopathy Face/Nose/Sinus: Normal external nose present, Normal nares present, Normal nasal mucous membranes and turbinates present, normal facial exam and face symmetric Face and sinus: normal facial exam and face symmetric Mouth: Yes Normal oral and palatal mucosa present, Yes lip normal and Yes moist mucous membranes Throat: uvula midline, posterior oropharynx abnormal erythem
== END 2023-08-30 10:30 | disposition home or self-care (01) ==
PROVIDERS: Emergency Medicine; Emergency Provider Nurse Practitioner
DX: J02.0 Streptococcal pharyngitis (principal); Z20.822 Contact with and (suspected) exposure to COVID-19; F12.90 Cannabis use, unspecified, uncomplicated; F14.90 Cocaine use, unspecified, uncomplicated; F15.90 Other stimulant use, unspecified, uncomplicated
CPT/HCPCS: 87426; 87804; 87880; 99213; G0463

== ENCOUNTER 2023-09-27 12:12 | Outpatient (RCR) | payer OTHER, SELFPAY ==
--- NOTE | 2023-09-27 13:22 | OPREHPOC ---
Outpatient Therapy Plan of Care This is a Multidisciplinary Plan of Care that may contain components documented by all disciplines (PT, OT, and ST.) PT Problem 1 PT Problem #1 Knowledge Deficit PT Goal 1 Goal 1. Patient will perform independent HEP Target Visit 3 PT Problem 2 PT Problem #2 Pain PT Goal 1 Goal 1. Patient able to take care of her baby with pain no higher than 3/10 2. No pain with pelvic exam Target Visit 6 PT Problem 3 PT Problem #3 Impaired Strength PT Goal 1 Goal 1. Improve hip strength to 5/5 in all planes and pain free to support pubic symphysis with movement Target Visit 6
--- NOTE | 2023-09-27 13:22 | PTOPEVAL1 ---
Assessment and note entered by Mary Srivastava DPT Evaluation Information Assessment Status Evaluation Subjective Information Pt reports pelvic pain that is severe if she moves the wrong way, like rolling over in bed. Highest pain 7/10 and lowest 3/10. Pain is located near pubic symphysis. No n/t. Noticing the pain about 2 months ago. Voids 5-6 times a day, incontinence daily and is a few drops at a time. Occurs with cough or sneeze. Can hold urge 5 minutes. BM usually once a day but states she has a history of constipation. Pain with BM due to hemorrhoids. Pt has also noticed pelvic pain recently with intercourse and tampon use. States she is trying to avoid movement at home due to the pain. Pt has been 1 time, 1 vaginal delivery on . States she had 1 stitch. Returns to [place] next month. Patient goal: get pain to go away, feel more energy to get up and about Reported Pain Level Pain Score 3: Self Report Assessment PT Clinical Summary The patient is presenting to skilled therapy at 3 months with pubic symphysis and pelvic pain. She presents with increased pelvic floor muscle tone, tenderness to palpation, and decreased overall hip/core strength which are contributing to her pain and difficulty with activities at home including rolling over. She will benefit from therapy to address these impairments and to return to full function. Plan of Care Interventions Electrical Stimulation,Gait Training,Hot Pack/Cold Pack,Manual Therapy,Neuro Re-education,Patient/ Caregiver Education,Therapeutic Activities, Therapeutic Exercise PT Services Indicated Yes Treatment Frequency and 1 time a week for 6 weeks Duration These treatments will address the objective and functional deficits as defined above. The patient will be advanced safely and appropriately in order for the patient to progress towards his/her prior level of function. Additional exercises will be introduced and as well as a comprehensive home exercise program upon discharge, if needed, ?to ensure carryover of functional gains achieved in the clinic. This treatment plan has been reviewed and agreement upon by the patient.
--- NOTE | 2023-10-21 09:00 | PCPTNOTE ---
Patient called to cancel appointment on 10/21/23 due to her child having RSV.
--- NOTE | 2023-10-21 09:09 | PCPTNOTE ---
Patient no showed appointment on 10/04/23 and cancelled 10/14/23 due to a sick child.
--- NOTE | 2023-10-28 09:34 | PTOPDC ---
Assessment and note entered by Mary Srivastava DPT Evaluation Information Assessment Status Discharge - Pt Not Present Subjective Information - Assessment PT Clinical Summary Patient is self discharging at this time. She has not attended therapy since her first visit and states she is unable to come at this time. Plan of Care PT Services Indicated No
== END 2023-10-28 11:25 | disposition home or self-care (01) ==
LOC: ANHPT 12:12
PROVIDERS: PCP Family Medicine; Visit Provider Obstetrics & Gynecology
DX: M86.8X8 Other osteomyelitis, other site (principal)
CPT/HCPCS: 97110; 97161; 99199

== ENCOUNTER 2024-05-09 11:32 | Outpatient (CLI) | payer OTHER, SELFPAY ==
[2024-05-09 12:16] LABS: Alanine Aminotransferase 37 U/L (6-35); Albumin Level 4.7 g/dL (3.5-5.1); Alkaline Phosphatase 123 U/L (38-126); Anion Gap 8 mmol/L (4-12); Aspartate Amino Transferase 31 U/L (14-36); Bilirubin,Total 0.7 mg/dL (0.2-1.3); Blood Urea Nitrogen 13 mg/dL (7-17); Calcium 9.7 mg/dL (8.4-10.2); Carbon Dioxide 27 mmol/L (22-30); Chloride 104 mmol/L (98-107); Estimated Glomerular Filt Rate > 60; Glucose 89 mg/dL (65-110); Lipase 48 U/L (23-300); Potassium 4.4 mmol/L (3.4-5.0); Sodium 139 mmol/L (137-145)
== END 2024-05-09 11:33 | disposition home or self-care (01) ==
LOC: ANHLAB 11:34
PROVIDERS: PCP Family Medicine; Visit Provider Student in an Organized Health Care Education/Training Program
DX: R10.13 Epigastric pain (principal)
CPT/HCPCS: 36415; 80053; 83690

== ENCOUNTER 2024-07-10 10:12 | Outpatient (CLI) | payer OTHER, SELFPAY ==
[2024-07-10 11:16] LABS: Alanine Aminotransferase 42 U/L (6-35); Albumin Level 4.2 g/dL (3.5-5.1); Alkaline Phosphatase 117 U/L (38-126); Anion Gap 4 mmol/L (4-12); Aspartate Amino Transferase 30 U/L (14-36); Bilirubin,Total 0.5 mg/dL (0.2-1.3); Blood Urea Nitrogen 12 mg/dL (7-17); Carbon Dioxide 28 mmol/L (22-30); Chloride 107 mmol/L (98-107); Estimated Glomerular Filt Rate > 60; Glucose 90 mg/dL (65-110); Potassium 4.2 mmol/L (3.4-5.0); Sodium 139 mmol/L (137-145)
== END 2024-07-10 10:13 | disposition home or self-care (01) ==
LOC: ANHLAB 10:13
PROVIDERS: PCP Family Medicine; Visit Provider Student in an Organized Health Care Education/Training Program
DX: R74.01 Elevation of levels of liver transaminase levels (principal)
CPT/HCPCS: 36415; 80053

== ENCOUNTER 2024-09-20 12:29 | Outpatient (CLI) | payer OTHER, SELFPAY ==
[2024-09-20 13:45] LABS: Beta HCG Quantitative < 2.39 mIU/ML
== END 2024-09-20 12:30 | disposition home or self-care (01) ==
LOC: ANHLAB 12:29
PROVIDERS: PCP Family Medicine; Visit Provider Student in an Organized Health Care Education/Training Program
DX: Z31.49 Encounter for other procreative investigation and testing (principal)
CPT/HCPCS: 36415; 84702

== ENCOUNTER 2024-11-13 11:29 | Outpatient (CLI) | payer OTHER, SELFPAY ==
[2024-11-13 12:12] LABS: Alanine Aminotransferase 23 U/L (6-35); Albumin Level 4.4 g/dL (3.5-5.1); Alkaline Phosphatase 95 U/L (38-126); Aspartate Amino Transferase 23 U/L (14-36); Bilirubin,Total 0.4 mg/dL (0.2-1.3)
[2024-11-13 13:00] LABS: Hepatitis B Surface Antigen Negative (Negative)
[2024-11-13 13:06] LABS: HAV RESULT Negative (Negative); Hepatitis B Core IgM Result Negative (Negative)
[2024-11-13 13:18] LABS: Hepatitis C Virus Antibody Negative (Negative)
--- OUTSIDE RECORDS SUMMARY | 2024-11-13 13:27 | XMS_ITS | Clinical Summary ---
Author Organization [facility] Address [address] [place] [address] Care Team Providers Care Regulatory Affairs Spec Name Role Phone Unknown, Provider Primary Care Provider Unavaila ble Source Comments [facility],non-owned Affiliates and Associated Physician Practices is amultiple site organization consisting of ambulatory clinics and hospital sitesin [place], [place], [place] and [place]. This disclosure is being madepursuant to the Care Everywhere program and may not contain all information available regarding this patient. Last updated 18.[facility] Allergies No known active allergies Medications * Be aware that medications may not be up to date on this document. Alwaysverify current medications with the patient. amoxicillin-cl avulanate (Augmentin) 875-125 MG tablet Take 1 (one) tablet by mouth as needed FOR 10 DAYS 3 Active ARIPiprazole (Abilify) 5 MG tablet TAKE 1 TABLET BY MOUTH AT BEDTIME FOR 7 DAYS 3 Active docusate sodium (Colace) 100 MG capsule Take 1 (one) capsule by mouth once daily 3 Active famotidine (Pepcid) 20 MG tablet Take 1 (one) tablet by mouth once daily 3 Active metoclopramide (Reglan) 5 MG tablet TAKE 1 TABLET BY MOUTH THREE TIMES DAILY NEEDED FOR NAUSEA OR VOMITING 3 Active nitrofurantoin monohyd macro crystals (Macrobid) 100 MG capsule Take 1 (one) capsule by mouth every 12 hours 3 Active ondansetron, disintegrating , (Zofran ODT) 4 MG tablet ondansetron 4 mg disintegrating tablet DISSOLVE 2 TABLETS ON THE TONGUE TWICE DAILY Active doxycycline hyclate (Acticlate) 100 MG tablet Take 1 (one) tablet by mouth every 12 hours Active tamsulosin (Flomax) 0.4 MG capsuleIndicat ions:Urolithia sis Take 1 (one) capsule by mouth once daily Reasons: Urinary Tract Stones 90 capsule Active Social History Tobacco Use Types Packs/Day Years Used Date Smoking Tobacco: Never Smokeless Tobacco: Never Tobacco Cessation:Counseling Given: Not Answered Alcohol Use Standard Drinks/Week Comments Never 0 (1 standard drink = 0.6 oz pur e alcohol) Comments No Sex and Gender Information Value Date Recorded Sex Assigned at Not on file Legal Sex Female 6:06 AM [employer] Gender Identity Not on file Sexual Orientation Not on file Last Filed Vital Signs Vital Sign Reading Time Taken Comments Blood Pressure 118/70 01/10/2023 9:57 AM CDT Pulse 103 01/10/2023 9:57 AM CDT Temperature - - Respiratory Rate - - Oxygen Saturation 96% 01/10/2023 9:57 AM CDT Inhaled Oxygen Concentration - - Weight 83 kg (183 lb) 01/10/2023 9:57 AM CDT Height 162.6 cm (5' 4 ) 01/10/2023 9:57 AM CDT Body Mass Index 31.41 01/10/2023 9:57 AM CDT Plan of Treatment Health Maintenance Due Date Last Done Comments PAP SMEAR 1989 HIV SCREENING 2004 HEPATITIS C SCREENING 11/05/2007 DTAP/TDAP/TD VACCINES (1 - Tdap) 2008 HEPATITIS B VACCINE (1 of 3 - 19+ 3-dose series) 2008 COVID-19 VACCINE ( - 2023-2 5 season) 2024 DEPRESSION SCREENING 07/25/2024 INFLUENZA VACCINE (Season Ended) 2025 ZOSTER VACCINE (1 of 2) 11/10/2039 HIB VACCINE Aged Out No longer eligi ble based on patient's age to complete this topic HPV VACCINE Aged Out No longer eligi ble based on patient's age to complete this topic MENINGOCOCCAL (Group B) VACC INE SHARED DECISION-MAKING Aged Out No longer eligibl e based on patient's age to complete this topic MENINGOCOCCAL GROUPS A/C/Y/W VACCINE Aged Out No longer eligible b ased on patient's age to complete this topic PNEUMOCOCCAL VACCINE Aged Out No long er eligible based on patient's age to complete this topic Insurance [place] Sub[place] Plan / Payer (Ef fective 2022-Present) Name:Michelle Medina Relation to Subscriber:Self Name:Michelle Medina Payer ID:Not on file Group ID:Not on file Type:Medicaid [place] Address: [place] [id number] [facility] Care Teams Regulatory Affairs Spec Relationship Specialty Start Date End Date Unknown, Provider PCP - General 02/22/23
--- OUTSIDE RECORDS SUMMARY | 2024-11-13 13:27 | XMS_ITS | Data Portability ---
Author Organization [facility] Address [address] [place] [address] [place] [address] Care Team Providers Care Bilingual Instructor Name Role Phone LITO LUKE Primary Care Provider Assessment Encounter Date Assessment Date Assessment LastModified by Organization Details LastModified Time 03/19/2024 03/19/2024 Annual gynecological exam performed. Patient will come back in a year unless there are new symptoms. talib Not available 03/19/2024 11:31:11 Plan of Treatment Reminders Order Date Submit Date Provider Last Modified By Organization Details Last Modified Time Details Appointments None recorded. Lab test, urine 2023 024 talib [place], [address], [address], [place], [address], 4 11:21:54 Referral pelvic floor therapy referral 2023 024 [facility] [place], [address] [facility], [place], [address], 4 04:03:38 psychiatris t referral 2023 024 [facility], [address] [place], [address], 4 05:01:27 Procedures None recorded. Surgeries None recorded. Imaging None recorded. Medication Orders NuvaRing 0.12 mg-0.015 mg/24 hr vaginal 2024 025 [facility]18, [address], [address], 5 18:19:43 Mirena 21 mcg/24 hr (up to 8 years) 52 mg intrauterin e device 2023 [email or web address] Not available 5 18:19:50 aripiprazol e 15 mg tablet 2023 [facility] #[id number], [address] [facility] [address] [place] [address], [id number], 4 11:28:22 doxycycline hyclate 100 mg capsule 2023 [facility] #[id number], [address], [phone], 09:55:29 Patient TargetsNo targets recorded. Patient InstructionsNo instructions recorded. Reason for Referral Psychiatrist Referral for Bi polar disorder Referring Physician: Flo Gonzáles [employer], Encounter Date: 12/06/2023 Pelvic Floor Therapy Referra l for Female pelvic floor dysfunction Referring Physician: Flo Gonzáles [employer], Encounter Date: 06/18/2024 Results Created Date Observation Date Name Description Value Unit Range Abnormal Flag Note LastModifiedBy Organization Detail LastModifiedTime 12/29/19 24 12/29/2023 pregn diana test, urine HCG negati ve Not Available [facility] [address], [place], [address], 12/29/2023 11:21:40 Result Notes None recorded. Problems Name Problem SNOMED Code Status Onset Date Resolution Date Notes Provider Name and Address Organization Details Recorded Time Pregnanc y 27990438 Completed 202206/30/2023 [facility] [place] - [facility] 3 13:04:31 Bipolar disorder 28695970 Active restarte d aripipra zole postpart um tim GONZÁLES MD [address], [place], [address], [facility] 4 11:07:16 Kidney stone 36934923 Completed Safiaaney Kizzy null, [facility] 3 13:04:27 Hypereme sis 431332473 Completed zofran Britaney Kizzy null, [facility] 3 13:04:27 Bipolar disorder 68890318 Completed no meds currentl y. micah- Michelle Roberson Minnie Durand null, [facility] 3 13:04:27 Kidney stone 64476318 Active Safiaaney Kizzy null, [facility] 3 13:04:27 Hypereme sis 538013822 Active zofran Minnie Gormanizzle null, [facility] 3 13:04:27 Problem Notes None recorded. Procedures Surgical History Date Name Laterality Status Provider Name and Address Organization Details Recorded Time 025 IUD Removal completed FLO GONZÁLES MD [address], [place], [address], [facility] 08/21/2024 22:56:54 024 IUD Insertion completed FLO GONZÁLES MD [address], [place], [address], [facility] 12/29/2023 11:10:55 023 Date of Last Pap Smear completed Mariel Alvarez [facility] 03/14/2023 11:11:55 012 [facility] 03/14/2023 11:02:13 011 Tonsillectomy completed Mariel Alvarez [place] [facility] 03/14/2023 11:02:03 001 Appendectomy completed Mariel Alvarez [facility] 03/14/2023 11:01:55 Imaging Results None recorded. Procedure Notes None recorded. Medical Equipment None Reported. Allergies No known drug allergies Medications Name Sig Start Date Stop Date Status Note LastModified by Organization Details LastModified Time cyclobenzap rine 10 mg tablet TAKE 1 TABLET BY MOUTH THREE TIMES DAILY NEEDED FOR MUSCLE SPASM 03/14 completed Not Available Not Available Not Available amoxicillin 500 mg capsule TAKE 1 CAPSULE BY MOUTH EVERY 12 HOURS 03/19 completed Not Available Not Available Not Available Mirena 21 mcg/24 hr (up to 8 years) 52 mg intrauterin e device Take 1 device by intrauter ine route. 08/21 completed Not Available Not Available Not Available doxycycline hyclate 100 mg capsule TAKE 1 CAPSULE BY MOUTH TWICE DAILY FOR 14 DAYS 06/18 completed Not Available Not Available Not Available lidocaine 4 % topical patch APPLY 1 PATCH TOPICALLY TO THE SKIN EVERY DAY 03/14 completed Not Available Not Available Not Available hydrocodone 5 mg-acetamin ophen 325 mg tablet TAKE 1 TABLET BY MOUTH EVERY 6 HOURS NEEDED FOR ACUTE PAIN. DO NOT EXCEED 4 GM OF ACETAMINO PHEN IN A DAY 03/19 completed Not Available Not Available Not Available metronidazo le 500 mg tablet TAKE 1 TABLET BY MOUTH TWICE DAILY DIRECTED FOR 7 DAYS 08/21 completed Not Available Not Available Not Available lamotrigine 25 mg tablet TAKE 1 TABLET BY MOUTH ONCE DAILY active Not Available Not Available No t Available famotidine 20 mg tablet TAKE 1 TABLET BY MOUTH EVERY DAY 09/07 completed Not Available Not Available Not Available metoclopram shar 5 mg tablet TAKE 1 TABLET BY MOUTH THREE TIMES DAILY NEEDED FOR NAUSEA OR VOMITING 03/14 completed Not Available Not Available Not Available tamsulosin 0.4 mg capsule TAKE 1 CAPSULE BY MOUTH ONCE DAILY 03/14 completed Not Available Not Available Not Available benzonatate 100 mg capsule 03/19 completed Not Available Not Available Not Available docusate sodium 100 mg capsule TAKE 1 CAPSULE BY MOUTH EVERY DAY 03/14 completed Not Available Not Available Not Available hydroxyzine HCl 25 mg tablet TAKE 1 TABLET BY MOUTH EVERY DAY AT BEDTIME 09/07 completed Not Available Not Available Not Available methylpredn isolone 4 mg tablets in a dose pack FOLLOW PACKAGE DIRECTION S 03/14 completed Not Available Not Available Not Available albuterol sulfate HFA 90 mcg/actuati on aerosol inhaler 06/18 completed Not Available Not Available Not Available ondansetron 4 mg disintegrat ing tablet DISSOLVE 1 TABLET ON THE TONGUE EVERY 8 HOURS NEEDED FOR NAUSEA OR VOMITING 04/26 completed Not Available Not Available Not Available medroxyprog esterone 150 mg/mL intramuscul ar suspension ADMINISTE R 1 ML IN THE MUSCLE EVERY 3 MONTHS 09/07 completed Not Available Not Available Not Available metoclopram shar 10 mg tablet TAKE 1 TABLET BY MOUTH FOUR TIMES DAILY NEEDED 09/07 completed Not Available Not Available Not Available amoxicillin 875 mg-potassiu m clavulanate 125 mg tablet TAKE 1 TABLET BY MOUTH EVERY 12 HOURS FOR 10 DAYS 06/18 completed Not Available Not Available Not Available Depo-Belt Picker a 150 mg/mL intramuscul ar syringe Inject 1 mL every 3 months by intramusc ular route. 03/19 completed Not Available Not Available Not Available aripiprazol e 10 mg tablet TAKE 1 TABLET BY MOUTH EVERY DAY 03/19 completed Not Available Not Available Not Available aripiprazol e 15 mg tablet Take 1 tablet every day by oral route. 03/19 completed Not Available Not Available Not Available nitrofurant oin monohydrate /macrocryst als 100 mg capsule TAKE 1 CAPSULE BY MOUTH EVERY 12 HOURS 03/14 completed Not Available Not Available Not Available SmoothLax 17 gram oral powder packet MIX 17 GRAMS IN LIQUID AND DRINK FOUR TIMES DAILY 03/14 completed Not Available Not Available Not Available EluRyng 0.12 mg-0.015 mg/24 hr vaginal ring INSERT ONE RING VAGINALLY AND LEAVE IN PLACE FOR 3 CONSECUTI VE WEEKS, THEN REMOVE FOR 1 WEEK. INSERT NEW RING 7 DAYS AFTER THE LAST WAS REMOVED active Not Available Not Available No t Available OneLAX Bisacodyl 10 mg rectal suppository INSERT 10MG RECTALLY THREE TIMES DAILY NEEDED FOR CONSTIPAT ION 03/14 completed Not Available Not Available Not Available Vitals Date Recorded Body height Body mass index (BMI) Body weight Systolic blood pressure Diastolic blood pressure Provider Name and Address Organization Details Last Updated DateTime 12/06/2023 162.56 cm 36.3 kg/m2 89344.71 g 120 mm[Hg] 80 mm[Hg] [facility] 4 14:12:31 Date Recorded Body height Body mass index (BMI) Body weight Systolic blood pressure Diastolic blood pressure Provider Name and Address Organization Details Last Updated DateTime 12/29/2023 162.56 cm 36.5 kg/m2 56071.46 g 120 mm[Hg] 83 mm[Hg] [facility] 4 10:50:32 Date Recorded Body height Body mass index (BMI) Body weight Systolic blood pressure Diastolic blood pressure Provider Name and Address Organization Details Last Updated DateTime 03/19/2024 162.56 cm 35.1 kg/m2 76081 g 113 mm[Hg] 78 mm[Hg] [facility] 4 11:33:29 Date Recorded Body height Body mass index (BMI) Body weight Systolic blood pressure Diastolic blood pressure Provider Name and Address Organization Details Last Updated DateTime 06/18/2024 162.56 cm 33 kg/m2 24401.74 g 112 mm[Hg] 75 mm[Hg] [facility] 4 09:59:53 Date Recorded Body height Body mass index (BMI) Body weight Systolic blood pressure Diastolic blood pressure Provider Name and Address Organization Details Last Updated DateTime 08/21/2024 162.56 cm 32.3 kg/m2 19855.37 g 111 mm[Hg] 72 mm[Hg] [facility] 5 17:48:49 Social History Question Answer Notes LastModified by Organizat ion Details LastModified Time Tobacco Smoking Status Never Smoker Mariel mckeon [facility] 03/14/2023 11:01:46 What Is Your Level Of Alcohol Consumption? None Information not available 03/14/2023 In The 14 Days Before Symptom Onset, Have You Had Close Contact With A Laboratory-confirm ed COVID-19 While That Case Was Ill? No [email or web address] Information n ot available 06/18/2024 In The 14 Days Before Symptom Onset, Have You Had Close Contact With A Person Who Is Under Investigation For COVID-19 While That Person Was Ill? No [email or web address] Information not available 06/18/2024 Have You Been To An Area Known To Be High Risk For COVID-19? No [email or web address] Information not available 06/18/2024 Which Illicit Or Recreational Drugs Have You Used? Thc Information not available 03/14/2023 Do You Use Any Illicit Or Recreational Drugs? Yes Information not available 03/14/2023 Has Tobacco Cessation Counseling Been Provided? No Information not available 03/14/2023 Do You Or Have You Ever Used Any Other Forms Of Tobacco Or Nicotine? No Information not available 03/14/2023 Sex: Unknown Functional Status None recorded. Mental Status None recorded. Family History Relationship Description Onset Age of this Age Resolved Age Notes LastModified by Organization Details LastModified Time Father No current problems or disability [email or web address] Not available 05/09 12:48:38 Mother No current problems or disability [email or web address] Not available 05/09 12:48:38 Notes:PT ADOPTED Medical History Condition Response Allergies (Food, seasonal, environmental ) N Other N Breast Cancer N Drug/Latex Allergies/Reactions N Blood Transfusion N Dermatologic Disorders N Lung Disease N Defects or Inherited Disease N Breast Problem N Gestational Diabetes N Hematologic disorders N Anesthesia Complications N History of STI N Deep Vein Thrombosis N Polycystic ovary syndrome N Anxiety Disorder N Autoimmune disease N Arthritis N Infertility N Polyps N Acid Reflux (GERD) N History of abnormal pap N Cancer N Stroke N Varicosities N Neurologic/Epilepsy N Endometriosis N High Cholesterol N Headaches N Fibromyalgia N Kidney Disease N Heart Problems N Kidney or Bladder Problems N Thyroid Problems N GI Problems N Eating Disorder N Anemia N Art (IVF or FET) N Psychiatric Illness N Ovarian Cancer N Diabetes N Pulmonary (TB, Asthma) N Hepatitis/Liver Disease N No Past Medical History N Eczema N Urinary Tract Infection N Abuse/Domestic Violence N Asthma N Trauma/Violence N Depression/ depression N Heart Disease N Pre-Eclampsia N Hypertension N Osteoporosis N Thrombophilias N Gynecological History Statement/Question Response Date of LMP 12/31/2023 Sexually Active? Y STIs/STDs N Age of first menstrual cycle 9 HPV Vaccine N Date of Last Pap Smear 11/22/2022 Sexual Problems? N Current Control Method IUD LMP Approximate Obstetrics History GPAL:G 1 P 1 0 0 1 Type Value Full Term 1 Living 1 Total 1 Past Encounters Encounter ID Performer Location Encounter Start Date Encounter Closed Date Diagnosis/Indication Diagnosis SNOMED-CT Code Diagnosis ICD10 Code Diagnosis Note [id number] Leeanna Pete MD [facility] [address],[place] [address] 03/14/2023 10:33:31 03/14/2023 14:27:10 Routine care 068387154 Z34.91 Bipolar disorder 7945360 4 F31.9 Hyperemesis 730296576 R1 1.10 Kidney stone 11776373 N2 0.0 [id number] Leeanna Pete MD [facility] [address],[place] [address] 04/11/2023 15:11:34 04/13/2023 15:03:16 Routine care 314201324 Z34.91 Bipolar disorder 8359672 4 F31.9 [id number] [facility] [address],[place] [address] 04/26/2023 15:28:12 04/26/2023 16:33:39 Small for gestational age fetus 195791235 O36.5930 Z3A.30 [id number] FLO GONZÁLES MD [facility] [address],[place] [address] 04/26/2023 15:28:34 04/26/2023 17:29:20 Gestation period, 30 weeks 54034902 Z3A.30 Pruritus of vagina 05814 003 L29.3 Insomnia 866259009 G47.0 0 Vomiting of 90 152072 O21.9 [id number] FLO GONZÁLES MD [facility] [address],[place] [address] 05/09/2023 12:38:31 05/09/2023 14:12:05 Gestation period, 32 weeks 9935615 Z3A.32 Right flank pain 8156688 09 R10.9 Morning sickness 6675884 6 O21.9 Insomnia 008034580 G47.0 0 [id number] Kiki Leach [facility] [address],[place] [address] 05/24/2023 11:25:03 05/24/2023 12:22:23 Uterine size for dates discrepancy 730089806 O26.849 Z36.2 Z3A.34 [id number] FLO GONZÁLES MD [facility] [address],[place] [address] 05/24/2023 11:26:01 05/24/2023 12:42:35 Gestation period, 34 weeks 38936552 Z3A.34 Abdominal pain 32069545 R10.9 Right flank pain 6306883 09 R10.9 Bipolar disorder 1879714 4 F31.9 [id number] FLO GONZÁLES MD [facility] [address],[place] [address] 06/08/2023 15:52:37 06/08/2023 16:41:49 Gestation period, 36 weeks 39490188 Z3A.36 Upper resp iratory infection 02249229 J06.9 Low back pain 419230537 M54.50 [id number] FLO GONZÁLES MD [facility] [address],[place] [address] 06/13/2023 16:44:16 06/21/2023 12:50:46 Routine care 505084006 Z34.93 [id number] FLO GONZÁLES MD [facility] [address],[place] [address] 06/22/2023 15:51:43 06/22/2023 16:46:07 Routine care 161852213 Z34.93 [id number] FLO GONZÁLES MD [facility] [address],[place] [address] 07/05/2023 17:26:18 07/07/2023 08:59:34 Bipolar disorder 67243572 F31.9 - restarted aripiprazo le, no side effects- EPDS 15, no SI/HI- continue to monitor closely state 5411549 1 Z39.2 [id number] Kirstie Page [facility] [address],[place] [address] 08/01/2023 15:50:17 08/01/2023 16:38:06 state 51197840 Z39.2 S/p 4 weeks ago here today for a visit.1. Patient recovering well2. Plans to continue formula feeding3. Interested in Depo for contracept ion at this time. Risks, benefits, and alternativ es reviewed with the patient4. Patient instructed to follow up in 1 year for well woman exam unless need arises prior Initiation of depot contraception done 8409535948 53720 Z30.013 [id number] FLO GONZÁLES MD [facility] [address],[place] [address] 08/02/2023 12:31:07 08/02/2023 15:40:47 Contraception care management 782791589 Z30.9 [id number] FLO GONZÁLES MD [facility] [address],[place] [address] 09/07/2023 10:15:56 09/07/2023 11:16:47 Inflammation of pubic symphysis 187817999 M86.8X8 - pelvic pain 2/2 pubic symphysis dysfunctio n- pelvic floor PT ordered Irregular intermenstrual bleeding 41703709 N92.1 - likely 2/2 recent depo injection- discussed common side effects of depo including irregular bleeding, especially during the first 3-6 months after initiation - offered trial of POPs to reduce bleeding, patient declines; will continue to monitor- partner does not have appointmen t for vasectomy due to losing insurance, will continue depo for contracept ion Right uppe r quadrant pain 765213539 R10.11 - unclear etiology, s/p cholecyste ctomy- will order RUQ US to evaluate further [id number] FLO GONZÁLES MD [facility] [address],[place] [address] 12/06/2023 13:55:15 12/08/2023 04:13:35 Bipolar disorder 76805701 F31.9 - stopped aripiprazo le as she has not had any improvemen t in symptoms- will increase dosage today- no SI/HI- will send psych referral- continue to monitor closely Contracept ion care management 027419750 Z30.9 Discussed with patient risks, benefits, and alternativ es of contracept ion. Discussed all options, including natural family planning, condoms, combined oral contracept charley, contracept qasim patch, Nuva-ring, Depo-Prove ra, Nexplanon, intrauteri ne device, and sterilizat ion (tubal ligation, vasectomy) . Advised that of the above listed options, only condoms can prevent sexually transmitte d infections and that condoms can be used together with any form of contracept ion. Patient has no contraindi cations. After extensive counseling , patient at this time desires IUD. Pain in pelvis 30197749 R10.2 - mild tenderness on exam- reports deep dyspareuni a since delivery- declines STD testing- will give course of doxy for possible chronic endometrit is [id number] FLO GONZÁLES MD [facility] [address],[place] [address] 12/29/2023 10:39:38 12/29/2023 13:26:07 Insertion of intrauterine contraceptive device 62304058 Z30.430 - Mirena IUD inserted without issue- due for removal 12/2031- RTC 1 month for string check [id number] FLO GONZÁLES MD [place] [address],[place] [address] 03/19/2024 10:54:55 03/19/2024 12:02:27 Gynecologic examination 15227141 Z01.419 [facility]- Cervical cancer screening: Pap smear not indicated (next 2025)- Breast cancer screening: mammogram not indicated- Colon cancer screening: does not qualify- HPV immunizati on: declined- STD testing: declined- hereditary cancer screening: does not qualify for testing [id number] FLO GONZÁLES MD [facility] [address],[place] [address] 06/18/2024 09:45:01 06/18/2024 10:51:59 Vaginitis 04674056 N76.0 - patient reports increased vaginal discharge since IUD placement; no pruritis or burning- amenorrhei c- swab sent to check for BV/yeast- discussed if swab negative, could try boric acid suppositor ies Female pel raheel floor dysfunction 770990786 M99.05 - patient reports mid to superficia l dyspareuni a since delivery- pain elicited on exam with palpation of levator ani muscles- will send PT referral [id number] FLO GONZÁLES MD [facility] [address] [address] 08/21/2024 17:42:35 08/22/2024 07:39:54 Contraception care management 271144816 Z30.9 - IUD removed without issue- Discussed with patient risks, benefits, and alternativ es of contracept ion. Discussed all options, including natural family planning, condoms, combined oral contracept charley, contracept qasim patch, Nuva-ring, Depo-Prove ra, Nexplanon, intrauteri ne device. Advised that of the above listed options, only condoms can prevent sexually transmitte d infections and that condoms can be used together with any form of contracept ion. Patient has no contraindi cations. After extensive counseling , patient at this time desires [facility] Con[facility]ns Section Related Observation LastModified by Organization Detai ls LastModified Time None Recorded Concern Status LastModified by Organization Details LastModified Time None Recorded Advance Directives Directive None Recorded Payers Encounter Date Sequence Insurance Name Policy Number Policy Anderson Covered Member ID Anderson Member ID Guarantor Name 12/06/2023 1 [facility] (MEDICAID HMO) [id number] [facility] [id number] [facility] 12/29/2023 1 [facility] (MEDICAID HMO) [id number] [place] [facility] [id number] [place] [facility] 03/19/2024 1 [facility] (MEDICAID HMO) [id number] 0003 [facility] [id number] [place] [facility] 06/18/2024 1 [facility] (MEDICAID HMO) [id number] 0003 [place] [facility] [id number] [place] [facility] 08/21/2024 1 [facility] (MEDICAID HMO) [id number] 0003 [facility] [id number] [place] [facility] Notes Date Note Type Note Provider Name and Address Organization Details Recorded Time 12/06/2023 text/html Patient presents to discuss control options. Has been on depo provera, however is having weight gain. Would to switch to a LARC. Discussed nexplanon vs IUD, r/b of each. Patient desires IUD. She also reports some deep dyspareunia since resuming sexual activity. Mild irregular bleeding since depo injection. 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 No other care givers at home. No SI/HI. Stopped aripiprazole as she did not feel it was working. Has not reestablished with psych due to scheduling issues. FLO GONZÁLES MD [address], [place], [address], [facility] 12/08/2023 02:20:29 12/29/2023 text/html Patient presents for IUD insertion. FLO GONZÁLES MD [address], [place], [address], [facility] 12/29/2023 13:19:44 03/19/2024 text/html Presents today f or her annual well-woman exam. Denies abnormal vaginal discharge. She is sexually active and denies dyspareunia. She is using Mirena for contraception, and she states that she is satisfied with this method. She has not noticed any changes or masses in her breasts. Spotting with IUD. FLO GONZÁLES MD [address], [place], [address], [facility] 03/19/2024 11:54:54 06/18/2024 text/html Patient presents for evaluation of vaginal discharge since IUD placement. Amenorrheic, however does report some blood in discharge. She denies pruritis or burning. Voiding without issue. She also reports superficial dyspareunia, different from previously deep dyspareunia. FLO GONZÁLES MD [address], [place], [address], [facility] 06/18/2024 10:45:09 08/21/2024 text/html Patient presents for IUD removal. Patient reports increased vaginal discharge and pain since placement. Would like to start Shefali GONZÁLES MD [address], [place], [address], [facility] 08/21/2024 22:57:26 OBGyn Episode Ob Episode Information Episode Created Date Number of Fetuses Patient Bloodtype Patient rh Status Prepregnancy Weight lbs Domestic Partner Domestic Partner Phone Father Name Surgical Resident Status 03/14/20 23 1 CLOSED Fetus Data First Name Last Name Admitted to NICU Weight (g) Sex Living Outcome Pediatric Complications Fetus ID Race Codes Race Delivery Type 3090.09 54 F true Full Term [id number] Vaginal Delivery Problems Problem Notes Problem Name Start Date End Date Resolution Snomed Code Not e Kidney stone [id number] Hyperemesis [id number] zofran Bipolar disorder [id number] no meds currently. psych- Michelle Roberson Jake Calculation Initial Jake Date Initial Exam Date Initial Exam Provider Initial Ultrasound Date Last Menstrual Period Date Ultra Sound Weeks Gestation 07/01/2024 03/14/2023 09/24/2022 0 Eighteen To Twenty Week Jake Update Ultra Sound Date Fundal Height At Umbil Quickening Date Ultra Sound Latest Weeks Gestation Final Jake Confirmed By Final Jake Confirmed Date Final Jake Date Ultra Sound Latest Days Gestation 0 07/01/20 23 0 Pre-stephanie Flowsheet Flowsheet Date 03/14/2023 Daniels Score Blood Edema Fundus Height Fundus Units Glucose Ketones Leukocytes Nitrite Labor Signs Protein Cervic Dilation Cervic Effacement Cervic Station none Type Weight in lbs Pre/Post Dialysis Refused Weight 193.07300964006 BP Diastolic BP Location Tested BP Systolic BP Type 73 107 Fetus Heart Rate Present A 155 Fetus Movement A No Comments Michelle is a 32yo G1 at 24.3 for transfer of care. Records not yet received from [place]. I saw her in the hospital for flank pain. She states she had anatomy US at [facility] and it was incomplete and she has appt to finish it next week. has been complicated by hyperemesis, on zofran, kidney stones, and bipolar, no meds currently. Encouraged to make appt with her psychiatrist, Karol, whom she has not seen in about 4 mos. She is trying to stop MJ. She used cocaine prior to . We discussed the risks of drug use in . She is doing well on zofran and is taking flexeril at night for her flank/rib pain. GCT next visit. Flowsheet Date 04/11/2023 Daniels Score Blood Edema Fundus Height Fundus Units Glucose Ketones Leukocytes Nitrite Labor Signs Protein Cervic Dilation Cervic Effacement Cervic Station neg none 30 none trace Type Weight in lbs Pre/Post Dialysis Refused Weight 201.005413900208 BP Diastolic BP Location Tested BP Systolic BP Type 66 98 Fetus Heart Rate Present A 130 Fetus Movement A Yes Comments Doing fine. Missed her psych appt, will reschedule. MFM in [place] didn't complete heart views still, they need a new order if she is going back there. she prefers to comlete them here. GCT today. RH pos per records/labs. Discuss vaccines next visit. Flowsheet Date 04/26/2023 Daniels Score Blood Edema Fundus Height Fundus Units Glucose Ketones Leukocytes Nitrite Labor Signs Protein Cervic Dilation Cervic Effacement Cervic Station Type Weight in lbs Pre/Post Dialysis Refused BP Diastolic BP Location Tested BP Systolic BP Type Fetus Heart Rate Present Fetus Movement Comments Flowsheet Date 04/26/2023 Daniels Score Blood Edema Fundus Height Fundus Units Glucose Ketones Leukocytes Nitrite Labor Signs Protein Cervic Dilation Cervic Effacement Cervic Station Type Weight in lbs Pre/Post Dialysis Refused Weight 198.251243755798 BP Diastolic BP Location Tested BP Systolic BP Type 72 107 Fetus Heart Rate Present A 136 Fetus Movement A Yes Comments Not sleeping well, was previ ously taking tramadol for sleep. Will send rx for atarax. Nausea somewhat improved with pepcid. Worst in morning, will trial reglan. Also reports vaginal itching, swab sent. Baby active. No contractions or VB. Anatomy incomplete, LVOT view still needed. EFW 15%. Will repeat US in 4 weeks for anatomy and growth. Flowsheet Date 05/09/2023 Daniels Score Blood Edema Fundus Height Fundus Units Glucose Ketones Leukocytes Nitrite Labor Signs Protein Cervic Dilation Cervic Effacement Cervic Station none Type Weight in lbs Pre/Post Dialysis Refused Weight 206.859364875095 BP Diastolic BP Location Tested BP Systolic BP Type 81 117 Fetus Heart Rate Present A 135 Fetus Movement A Yes Comments Sleeping better with atarax. Nausea improved on reglan. Good movement, no bleeding, ctx, LOF. Flank pain still present. Vaginal irritation improved. Blank lesion on labia minora, thought maybe ingrown hair; looks like small sebaceous cyst, expectant management. Growth and incomplete anatomy next visit. Flowsheet Date 05/24/2023 Daniels Score Blood Edema Fundus Height Fundus Units Glucose Ketones Leukocytes Nitrite Labor Signs Protein Cervic Dilation Cervic Effacement Cervic Station Type Weight in lbs Pre/Post Dialysis Refused BP Diastolic BP Location Tested BP Systolic BP Type Fetus Heart Rate Present Fetus Movement Comments Flowsheet Date 05/24/2023 Daniels Score Blood Edema Fundus Height Fundus Units Glucose Ketones Leukocytes Nitrite Labor Signs Protein Cervic Dilation Cervic Effacement Cervic Station none none neg Type Weight in lbs Pre/Post Dialysis Refused Weight 206.136818511605 BP Diastolic BP Location Tested BP Systolic BP Type 82 121 Fetus Heart Rate Present A 165 Fetus Movement A Yes Comments Increased pain from po sition, has tried different maternal positions without improvement. Discussed heat/ice, tylenol. Nausea worse for last 4 days, improving now. EFW 13%. LEE wnl. Anatomy completed today. EIL handout given, will discuss at next visit. Flowsheet Date 06/08/2023 Daniels Score Blood Edema Fundus Height Fundus Units Glucose Ketones Leukocytes Nitrite Labor Signs Protein Cervic Dilation Cervic Effacement Cervic Station Type Weight in lbs Pre/Post Dialysis Refused Weight 206.6476829369 BP Diastolic BP Location Tested BP Systolic BP Type 82 123 Fetus Heart Rate Present A 140 Fetus Movement Comments Still has URI, hasn't taken any medicines. Neg flu/covid/strep. Reviewed safe medicines in . Baby active. Rib pain improved, s/p flexeril. Inconsistent contractions, no bleeding, LOF. Still nauseous. Would like EIL at 39 weeks. GBS collected today. Return precautions given. Flowsheet Date 06/13/2023 Daniels Score Blood Edema Fundus Height Fundus Units Glucose Ketones Leukocytes Nitrite Labor Signs Protein Cervic Dilation Cervic Effacement Cervic Station Type Weight in lbs Pre/Post Dialysis Refused BP Diastolic BP Location Tested BP Systolic BP Type 80 120 Fetus Heart Rate Present A 140 Fetus Movement Comments Had a coughing fit yesterday , had vomiting episode after coughing. Continued congestion, will try OTC. Good movement. No ctx, VB, LOF. Would like EIL, will schedule. Flowsheet Date 06/22/2023 Daniels Score Blood Edema Fundus Height Fundus Units Glucose Ketones Leukocytes Nitrite Labor Signs Protein Cervic Dilation Cervic Effacement Cervic Station 1cm 50% -3 Type Weight in lbs Pre/Post Dialysis Refused Weight 211.136181840376 BP Diastolic BP Location Tested BP Systolic BP Type 77 112 Fetus Heart Rate Present A 150 Fetus Movement A Yes Comments Doing well, baby active. No ctx, LOF, VB. Discussed labor signs. SVE performed, membranes swept. EIL on Tuesday. Menstrual History Last Menstrual Date Menses Monthly On Bcp Conception Prior Menses Frequency Hcg Plus Date Menarche Onset Age 0309/24/2022 Genetic Screening And Infection History Question Response Note Mental Retardation/Autism false Patient's Age Will Be 35 Years Or Older At Estim ated Date of Delivery false Thalassemia (Algerian, Kazakh, Mediterranean, Or Background): MCV < 80 false Neural Tube Defect (Meningomyelocele, Spina Bifi da, Or Anencephaly) false Congenital Heart Defect false Down Syndrome false Vik-Sachs (eg, Quaker, Cajun, Turkish-Micronesian) f alse Richard Disease false Sickle Cell Disease Or Trait () false Hemophilia Or Other Blood Disorders false Muscular Dystrophy false Cystic Fibrosis false [place]'s Chorea false Intellectual Disability/Autism false If Yes, Was Person Tested For Fragile X? false Other Inherited Genetic Or Chromosomal Disorder false Maternal Metabolic Disorder (eg, Type 1 Diabetes , PKU) false Patient Or Baby's Father Had A Child With Defects Not Listed Above false Recurrent Loss, Or A Stillbirth false Medications (including Suppl ements, Vitamins, Herbs, OTC Drugs), Illicit/Recreational Drugs, Alcohol true If Yes, Agent(s) And Strength/Dosage false Any Other Genetic History false Live With Someone With TB Or Exposed To TB false Patient Or Partner Has History Of Genital Herpes false Rash Or Viral Illness Since Last Menstrual Perio d false History Of STD, Gonorrhea, Chlamydia, HPV, Syphi lis false Other Infection History false History of HIV false History of Hepatitis false Prior GBS-infected child false Hemoglobinopathy Or Carrier false Other Structural Defect false Recent Travel History Outside of Country false Delivery Information Delivery Date Delivery Type Labor Anesthesia Weeks Gestation Incision Type Labor Labor Length Hrs Delivered By Post Complications Tubal Sterilization Discharge Date Comments 3 Induce d Regional-Ep idural 39.3 false Flo Gonzáles MD Bipolar disorder, Hyperemes is, Kidney stone Discharge Information Feeding Method Contraceptive Method Maternal HG B and HCT Levels
--- OUTSIDE RECORDS SUMMARY | 2024-11-13 13:28 | XMS_ITS | Patient Health Record ---
[facility] Organization [facility] Address [address] [place] [address] Care Team Providers Care Private Mortgage [employer] Safe Name Role Phone Michelle Roberson Primary Care Provider Allergies No Known Allergies Reason For Referral No Information Medications Medication SIG (Take, Route, Fr equency, Duration) Notes Start Date End Date Status Abilify 10 MG 1 tablet Orally at b edtime for 30 days 10/21/2022 Not-Taking Abilify 5 MG 1 tablet Orally at b edtime for 7 days 10/21/2022 Not-Taking CeleXA 10 MG 1 tablet Orally Once a day Unknown Social History Sex Assigned At : Social History Observation Description Sex Assigned At Female Problems Problem Type SNOMED Code ICD Code Onset Dates Problem Status W/U Status Risk Notes Problem Depression (232954183) Depression (F32.9) Active confirmed Problem 43896988 Mood disorder (F39) Active confirmed Problem Substance abuse (5129147486) Substance abuse (F19.10) Active confirmed Problem 04195971 Anxiety (F41.9) Active confirmed Problem Bipolar 1 disorder (182608102) Bipolar 1 disorder (F31.9) Active confirmed Problem 847133904 Wellness examination (Z00.00) Active confirmed Problem Cocaine abuse (85119640) Cocaine abuse (F14.10) Active confirmed Problem 93337682 Depression, unspecified depression type (F32.9) Active confirmed Plan Of Treatment No Information Insurance Providers Payer Name Payer Address Payer Phone Subscriber Number Group Number Insured Name Patient Relationship to Insured Coverage Start Date Coverage End Date MEDICAID [address] [place] [address] [id number] Michelle Medina Self - patient is the insured 3 [facility] [address] [place] [address] [id number] Michelle Medina Self - patient is the insured 3 Medical (General) History Medical History History ICD Code bipolar disorder anxiety Surgical History Surgery Date(Month/Year) appendectomy Cholecystectomy 2012 Tonsillectomy 2010 Hospitalization History Reason Date(Month/Year)
--- OUTSIDE RECORDS SUMMARY | 2024-11-13 13:28 | XMS_ITS | Data Portability ---
Author Organization [employer] , [facility] Address [address] [place] [address] Care Team Providers Care Globe Cleaner Name Role Phone [facility] Squirrel Man Assessment No assessment recorded. Plan of Treatment Reminders Order Date Submit Date Provider Last Modified By Organization Details Last Modified Time Details Appointments None recorded. Lab urinalysis, dipstick 2022 023 [email or web address] 1 [facility], [address] [place], [address], 3 14:50:44 CMP, serum or plasma 2022 023 [facility], [address] [place], [address], 3 11:02:18 genetic screen, unspecified specimen 2022 023 GHULAM [facility], [address] [facility], [place], [address], 3 05:08:03 aneuploidy risk, chromosome specific circulating cell free (ccf) DNA, maternal serum 2022 023 [facility] [employer], [address] [facility], [place], [address], 3 02:10:47 hemoglobin A1c, QN, blood 2022 023 [facility], [address] [place], [address], 3 11:02:59 varicella-z anaid igg Ab screen, serum 2022 023 [facility], [address], [place], [address], 3 15:24:53 hemoglobino abdoulaye profile, blood 2022 023 [facility], [address], [address], [place], [address], 3 15:24:54 antibody screen, serum or plasma 2022 023 [facility], [address] [place], [address], 3 15:24:54 abo group + rh type, blood 2022 023 [facility], [address] [place], [address], 3 15:24:55 CBC w/ auto diff 2022 023 [facility] [facility], [address] [place], [address], 3 11:14:30 drug of abuse panel, urine 2022 023 [employer] [facility], [address] [place], [address], 3 11:55:33 obstetric screen + HIV, serum or blood 2022 023 [employer], [address] [place], [address], 3 12:27:02 test, urine 2022 023 [email or web address] 0 [facility], [address], [place], [address], 3 11:41:56 beta-HCG, quantitativ e, serum or plasma 2022 023 [email or web address] 1 [facility], [address] [place] [address], [address], 3 15:03:22 urinalysis, dipstick 2022 023 [email or web address] 0 [facility], [address] [place], [address], 3 13:27:14 culture, urine 2022 023 [facility], [address] [place], [address], 3 01:13:09 CT + NG DNA, PCR, unspecified specimen 2022 023 [facility], [address] [place], [address], 3 09:23:36 HPV E6+E7 mRNA, qualitative PCR, cervix 2022 023 [facility], [address] [place], [address], 3 10:49:57 pap, LB 2022 023 [facility], [address] [place], [address], 3 17:19:38 Referral maternal & medicine referral - referral for anatomy scan [address] [facility], [address] [place] [address], [address], 3 14:29:56 Procedures None recorded. Surgeries None recorded. Imaging US, transvagina l 2022 023 [email or web address] Not available 17:31:44 US, transvagina l 20[email or web address] [place] [address], [address], [place], [address], 3 17:00:03 Medication Orders lidocaine 4 % topical patch 2022 023 [facility] #33950, [address] [place] [address], [id number], 3 14:50:52 Flomax 0.4 mg capsule 2022 023 [facility] #52598, [address] [place] [address], [id number], 3 14:50:53 Medrol (Wesley) 4 mg tablets in a dose pack 2022 023 [facility] #44840, [address] [place] [address], [id number], 3 14:50:52 Macrobid 100 mg capsule 2022 023 [facility] #03456, [address] [place] [address], [id number], 3 15:49:12 Colace 100 mg capsule 2022 023 [facility] #09917, [address] [place] [address], [id number], 3 15:59:37 Patient TargetsNo targets recorded. Patient Instructions Encounter Date Encounter Id Patient Instructions Last Modified By Organization Details Last Modified Time 11/10/2022 [id number] learning about dietary guidelines [email or web address] Not available 11/10/2022 13:27:14 eating healthy foods: care instructions [email or web address] Not available 11/10/2022 13:27:14 abuse/domestic violence education [email or web address] Not available 11/10/2022 13:27:14 Reason for Referral Maternal & Medicine Re ferral for screening for malformation referral for anatomy scan Referring Physician: Dulce Maria Blas, TRUST ADVISOR, Encounter Date: 02/02/2023 Results Created Date Observation Date Name Description Value Unit Range Abnormal Flag Note LastModifiedBy Organization Detail LastModifiedTime 01/11/2001/10/2023 VARIC KELLY ZOSTE R VIRUS ANTIB JESSENIA (IGG) varicella zoster virus antibody (IgG) 357.10 index normal Index Inter preta tion ----- ---- ----- ----- ----- ----- -- <135. 00 Negat ivan - Antib jessenia not detec la 135.0 0 - 164.9 9 Equiv ocal > or = 165.0 0 Posit ivan - Antib jessenia detec la A posit ivan resul t indic ates that the patie nt has antib jessenia to VZV but does not diffe renti ate betwe en an activ e or past infec tion. The clini aurelia diagn osis must be inter prete d in conju nctio n with the clini aurelia signs and sympt oms of the patie nt. This assay relia morro measu res immun ity due to previ ous infec tion but may not be sensi tive enoug h to detec t antib odies induc ed by vacci natio n. Thus, a negat ivan resul t in a vacci nated indiv idual does not neces saril y indic ate susce ptibi lity to VZV infec tion. A more sensi tive test for vacci natio n-ind uced immun ity is Varic kelly Zoste r Virus Antib jessenia Immun ity Scree n, ACIF. Not Available [employer] [facility] [address] [place], [address], 01/10/2023 15:24:53 01/11/2001/10/2023 HEMOG LOBIN OPATH Y EVALU ATION red blood cell count 4.60 carol on/uL 3.80-5 .10 Not Available [address] [address] [place], [address], 01/10/2023 15:24:54 01/11/20 23 01/10/2023 HEMOG LOBIN OPATH Y EVALU ATION hemoglobin 14.0 g/dL 11.7-1 5.5 Not Available [address] [address] [place], [address], 01/10/2023 15:24:54 01/11/20 23 01/10/2023 HEMOG LOBIN OPATH Y EVALU ATION hematocrit 43.0 % 35.0-4 5.0 Not Available [address] [address] [place], [address], 01/10/2023 15:24:54 01/11/20 23 01/10/2023 HEMOG LOBIN OPATH Y EVALU ATION MCV 93.5 fL 80.0-1 00.0 Not Available [address] [address] [place], [address], 01/10/2023 15:24:54 01/11/20 23 01/10/2023 HEMOG LOBIN OPATH Y EVALU ATION MCH 30.4 pg 27.0-3 3.0 Not Available [address] [address] [place], [address], 01/10/2023 15:24:54 01/11/20 23 01/10/2023 HEMOG LOBIN OPATH Y EVALU ATION RDW 13.6 % 11.0-1 5.0 Not Available [address] [address] [place], [address], 01/10/2023 15:24:54 01/11/20 23 01/10/2023 HEMOG LOBIN OPATH Y EVALU ATION hemoglobin A 97.4 % >96.0 Not Available [address] [address] [place], [address], 01/10/2023 15:24:54 01/11/20 23 01/10/2023 HEMOG LOBIN OPATH Y EVALU ATION hemoglobin F <1.0 % <2.0 Not Available [address] [address] [place], [address], 01/10/2023 15:24:54 01/11/20 23 01/10/2023 HEMOG LOBIN OPATH Y EVALU ATION hemoglobin A2 (quant) 2.6 % 2.2-3. 2 Not Available [address] [address] [place], [address], 01/10/2023 15:24:54 01/11/20 23 01/10/2023 HEMOG LOBIN OPATH Y EVALU ATION interpretati on Marychuy l pheno type. Marychuy l hemog lobin distr ibuti on, no HgS, HgC or other abnor mal hemog lobin obser surya. Not Available [address] [address] [place], [address], 01/10/2023 15:24:54 01/11/20 23 01/10/2023 ANTIB JESSENIA SCREE N, RBC W/REF L ID, TITER AND AG antibody screen, RBC w/refl id, titer and Ag NO ANTIBO DIES DETECT ED normal Refer ence range No antib odies detec la This assay is a scree cheryl test for the detec tion of red blood cell antib odies . The test is not to be used for pretr ansfu katarzyna scree cheryl or for the medic al manag ement of an alloi mmuni zed pregn diana. Not Available [address] [address] [place], [address], 01/10/2023 15:24:54 01/11/2001/10/2023 ABO GROUP AND RH TYPE ABO group O Not Available [address] [address] [place], [address], 01/10/2023 15:24:55 06/19/01/10/2023 ABO GROUP AND RH TYPE Rh type RH(D) POSITI VE For addit ional infor lisandro summers e refer to http: //[facility] caal.Que stDia gnost ics.c om/fa q/FAQ 111 (This link is being provi ded for infor jose watson/ educdivya kimble purpo ses only. ) NO COLLE CTION DATE RECEI SURYA. WE HAVE USED THE DATE THE SPECI MEN WAS RECEI SURYA BY THIS LABOR ATORY THE COLLE CTION DATE. IF THIS IS INCOR RECT, PLEAS E CONTA CT CLIEN T SERVI ABDIRAHMAN. PHONE NUMBE R: [phone] Not Available [facility] [address] [place], [address], 01/10/2023 15:24:55 11/11/19 23 11/10/2022 CT/NG CT/NG Merged to [id number] Not Available [facility] [address] [place], [address], 11/11/2022 09:23:36 11/11/19 23 11/12/2022 CULTU RE, URINE , ROUTI NE culture, urine, routine SEE NOTE CULTU RE, URINE , ROUTI NE Micro Numbe r: [id number] Test Statu s: Final Speci men Sourc e: Urine Speci men Quali ty: Adequ ate Resul t: No Growt h Not Available [facility] [address], [place], [address], 11/12/2022 01:13:09 11/11/1911/11/2022 CT/NG chlamydia trachomatis CT neg negati ve normal This repor t is inten ded for us in clini aurelia monit oring and manag ement of marvin stephens. It is not inten ded for use in medic al-le gal appli catio n. Not Available [facility] [address] [place], [address], 11/12/2022 10:49:57 11/11/19 23 11/11/2022 CT/NG neisseria gonorrhoeae GC neg negati ve normal This repor t is inten ded for us in clini aurelia monit oring and manag ement of marvin stephens. It is not inten ded for use in medic al-le gal appli catio n. Not Available [facility] [address] [place], [address], 11/12/2022 10:49:57 11/11/19 23 11/11/2022 HPV HIGH RISK HPV high risk Negati ve negati ve normal The HPV High Risk assay is inten ded for use as co-te sting with cytol ogy and not as a subst itute for regul ar cervi aurelia cytol ogy scree cheryl. This assay is not inten ded for use as a scree cheryl devic e for women under age 30 with marychuy l cervi aurelia cytol ogy. Not Available [address], [address], 11/12/2022 10:49:58 11/11/19 23 11/16/2022 THINP REP TIS PAP clinical information: normal None given Not Available [employer] [address] [address] [place], [address], 11/16/2022 17:19:38 11/11/19 23 11/16/2022 THINP REP TIS PAP LMP: normal None given Not Available [employer] [address] [address] [place], [address], 11/16/2022 17:19:38 11/11/19 23 11/16/2022 THINP REP TIS PAP prev. Pap: normal None given Not Available [employer] [address] [address] [place], [address], 11/16/2022 17:19:38 11/11/19 23 11/16/2022 THINP REP TIS PAP prev. BX: normal None given Not Available [employer] [address] [address] [place], [address], 11/16/2022 17:19:38 11/11/19 23 11/16/2022 THINP REP TIS PAP source: normal Cervi x Not Available [address] [address] [place], [address], 11/16/2022 17:19:38 11/11/19 23 11/16/2022 THINP REP TIS PAP statement of adequacy: normal Satis facto ry for evalu ation . Endoc ervic al/tr ansfo rmati on zone compo nent prese nt. Age and/o r menst rual statu s not provi ded Not Available [address] [address] [place], [address], 11/16/2022 17:19:38 11/11/19 23 11/16/2022 THINP REP TIS PAP interpretati on/result: normal Negat ivan for intra epith elial lesio n or malig sylvie . Not Available [address] [address] [place], [address], 11/16/2022 17:19:38 11/11/19 23 11/16/2022 THINP REP TIS PAP infection: normal Shift in vagin al dixon sugge stive of bacte rial vagin osis. Not Available [address] [address] [place], [address], 11/16/2022 17:19:38 11/11/19 23 11/16/2022 THINP REP TIS PAP comment: normal This Pap test has been evalu ated with compu ter raina la techn ology . Not Available [address] [address] [place], [address], 11/16/2022 17:19:38 11/11/19 23 11/16/2022 THINP REP TIS PAP cytotechnolo gist: normal ABC, CT( CP) CT scree cheryl locat ion: [address] [address] [address] [place] [place] [address] Not Available [address] [address] [place], [address], 11/16/2022 17:19:38 11/11/19 23 11/16/2022 THINP REP TIS PAP comment EXPLA NATROSITA Y NOTE: The Pap is a scree cheryl test for cervi aurelia cance r. It is not a diagn ostic test and is subje ct to false negat ivan and false posit ivan resul ts. It is most relia ble when a satis facto ry sampl e, regul alexy obtai daniela, is submi tted with relev ant clini aurelia findi ngs and histo ry, and when the Pap resul t is evalu ated along with histo noah and curre nt clini aurelia infor united health servicesariane n. Not Available [address] [address] [place], [address], 11/16/2022 17:19:38 11/11/19 23 11/10/2022 urina lysis , dipst ick Leukocytes Negati ve Not Available [address], [address], 11/10/2022 11:59:51 11/11/19 23 11/10/2022 urina lysis , dipst ick Nitrite negati ve Not Available [address], [address], 11/10/2022 11:59:51 11/11/19 23 11/10/2022 urina lysis , dipst ick Urobilinogen .2 Not Available [address], [address], 11/10/2022 11:59:51 11/11/19 23 11/10/2022 urina lysis , dipst ick Protein Negati ve Not Available [address], [address], 11/10/2022 11:59:51 11/11/19 23 11/10/2022 urina lysis , dipst ick pH 5.0 Not Available [address], [address], 11/10/2022 11:59:51 11/11/19 23 11/10/2022 urina lysis , dipst ick Blood Small Not Available [address], [address], 11/10/2022 11:59:51 11/11/19 23 11/10/2022 urina lysis , dipst ick Specific [place] 1.000 Not Available [address], [address], 11/10/2022 11:59:51 11/11/19 23 11/10/2022 urina lysis , dipst ick Ketone Negati ve Not Available [address], [address], 11/10/2022 11:59:51 11/11/19 23 11/10/2022 urina lysis , dipst ick Bilirubin Negati ve Not Available [address], [address], 11/10/2022 11:59:51 11/11/19 23 11/10/2022 urina lysis , dipst ick Glucose Negati ve Not Available [address], [address], 11/10/2022 11:59:51 11/11/19 23 11/10/2022 urina lysis , dipst ick Appearance Clear Not Available [address], [address], 11/10/2022 11:59:51 11/11/19 23 11/10/2022 urina lysis , dipst ick Color Dark Yellow Not Available [address], [address], 11/10/2022 11:59:51 11/11/19 23 11/10/2022 pregn diana test, urine HCG positi ve Not Available [address], [address], 11/10/2022 11:31:46 01/06/20 23 01/06/2023 HEMOG LOBIN A1C hemoglobin A1C 4.7 % <5.7 normal The refer ence range for HbA1c is indic ated in the table below . Sugge sted Diagn osis =6.5% Consi stent with diabe amanda 5.7 6.4% Consi stent with incre ased risk for diabe amanda (pred iabet ic) <5.7% Consi stent with the absen ce of diabe amanda [place], [address], 01/06/2023 11:02:59 01/06/20 23 01/06/2023 CBC (INCL UDES DIFF/ PLT) WBC 12.1 thous and/u L 4.0 - 9.8 high [place], [address], 01/06/2023 11:14:30 01/06/20 23 01/06/2023 CBC (INCL UDES DIFF/ PLT) RBC 4.6 carol on/uL 3.9 - 4.9 normal [place], [address], 01/06/2023 11:14:30 01/06/20 23 01/06/2023 CBC (INCL UDES DIFF/ PLT) hemoglobin 14.1 g/dL 11.8 - 14.8 normal [place], [address], 01/06/2023 11:14:30 01/06/20 23 01/06/2023 CBC (INCL UDES DIFF/ PLT) hematocrit 43.3 % 35.5 - 44.0 normal Not Available [address], [address], 01/06/2023 11:14:30 01/06/20 23 01/06/2023 CBC (INCL UDES DIFF/ PLT) MCV 94.3 fL 82.0 - 99.0 normal Not Available [address], [address], 01/06/2023 11:14:30 01/06/20 23 01/06/2023 CBC (INCL UDES DIFF/ PLT) MCH 30.7 pg 27.2 - 32.6 normal Not Available [address], [address], 01/06/2023 11:14:30 01/06/20 23 01/06/2023 CBC (INCL UDES DIFF/ PLT) MCHC 32.6 g/dL 31.5 - 35.5 normal Not Available [address], [address], 01/06/2023 11:14:30 01/06/20 23 01/06/2023 CBC (INCL UDES DIFF/ PLT) RDW-CV 14.2 % 11.5 - 14.5 normal Not Available [address], [address], 01/06/2023 11:14:30 01/06/20 23 01/06/2023 CBC (INCL UDES DIFF/ PLT) platelet 300 thous and/u L 140 - 350 normal Not Available [address], [address], 01/06/2023 11:14:30 01/06/20 23 01/06/2023 CBC (INCL UDES DIFF/ PLT) MPV 10.3 fL 9.3 - 12.4 normal Not Available [address], [address], 01/06/2023 11:14:30 01/06/20 23 01/06/2023 CBC (INCL UDES DIFF/ PLT) absolute neutrophil 8.98 thous and/u L 1.90 - 7.00 high Not Available [address], [address], 01/06/2023 11:14:30 01/06/20 23 01/06/2023 CBC (INCL UDES DIFF/ PLT) absolute lymphocyte 2.40 thous and/u L 0.70 - 4.50 normal Not Available [address], [address], 01/06/2023 11:14:30 01/06/20 23 01/06/2023 CBC (INCL UDES DIFF/ PLT) absolute monocyte 0.61 thous and/u L 0.10 - 1.30 normal Not Available [address], [address], 01/06/2023 11:14:30 01/06/20 23 01/06/2023 CBC (INCL UDES DIFF/ PLT) absolute eosinophil 0.07 thous and/u L <0.70 normal Not Available [address], [address], 01/06/2023 11:14:30 01/06/20 23 01/06/2023 CBC (INCL UDES DIFF/ PLT) absolute basophil 0.03 thous and/u L <0.20 normal Not Available [address], [address], 01/06/2023 11:14:30 01/06/20 23 01/06/2023 CBC (INCL UDES DIFF/ PLT) absolute immature granulocyte 0.02 thous and/u L <0.03 normal Not Available [address], [address], 01/06/2023 11:14:30 01/06/20 23 01/06/2023 DRUG ABUSE PANEL 7 W/CON FIRM amphetamines Negati ve negati ve normal Not Available [address], [address], 01/06/2023 11:55:33 01/06/20 23 01/06/2023 DRUG ABUSE PANEL 7 W/CON FIRM barbiturates Negati ve negati ve normal Not Available [place] [facility] [address] [place], [address], 01/06/2023 11:55:33 01/06/20 23 01/06/2023 DRUG ABUSE PANEL 7 W/CON FIRM benzodiazepi torie Negati ve negati ve normal Not Available [facility] [place] [facility] [address] [place], [address], 01/06/2023 11:55:33 01/06/20 23 01/06/2023 DRUG ABUSE PANEL 7 W/CON FIRM cocaine metabolites Negati ve negati ve normal Not Available [place] [facility] [address] [place], [address], 01/06/2023 11:55:33 01/06/20 23 01/06/2023 DRUG ABUSE PANEL 7 W/CON FIRM cannabinoids Presum ptive Positi ve negati ve abnormal Not Available [facility] [facility] [address] [place], [address], 01/06/2023 11:55:33 01/06/20 23 01/06/2023 DRUG ABUSE PANEL 7 W/CON FIRM methadone Negati ve. negati ve normal Not Available [facility] [place] [facility] [address] [place], [address], 01/06/2023 11:55:33 01/06/20 23 01/06/2023 DRUG ABUSE PANEL 7 W/CON FIRM opiates Negati ve negati ve normal Not Available [facility] [place] [facility] [address] [place], [address], 01/06/2023 11:55:33 01/06/20 23 01/06/2023 DRUG ABUSE PANEL 7 W/CON FIRM creatinine, urine 107 mg/dL 20 - 275 normal Not Available [facility] [place] [facility] [address] [place], [address], 01/06/2023 11:55:33 01/06/20 23 01/06/2023 OB PANEL - STD BLOOD WORK hep BS Ag Non-Re active non-re active normal Not Available [address], [address], 01/06/2023 12:27:02 01/06/20 23 01/06/2023 OB PANEL - STD BLOOD WORK hep C Ab Non-Re active non-re active normal Not Available [address], [address], 01/06/2023 12:27:02 01/06/20 23 01/06/2023 OB PANEL - STD BLOOD WORK HIV 1/2 Ag/Ab Non-Re active non-re active normal Not Available [address], [address], 01/06/2023 12:27:02 01/06/20 23 01/06/2023 OB PANEL - STD BLOOD WORK syphilis Ab Non-Re active non-re active normal Not Available [address], [address], 01/06/2023 12:27:02 01/06/2001/06/2023 OB PANEL - STD BLOOD WORK rubella Ab IgG > 500.0 IU/mL INTER PRETI VE INFOR MATIO N: Rubel la Antib jessenia, IgG. < 5.0 IU/mL ..... ..... . Not consi stent with immun ity 5.0 - 9.9 IU/mL ..... . Equiv ocal: Indet ermin ate-R epeat testi ng in 10-14 days may be helpf ul. > or = 10.0 IU/mL ... Consi stent with immun ity The prese nce of Rubel la IgG antib jessenia sugge st respo nse to immun izati on or prior /curr ent expos ure to the Rubel la virus . Not Available [address], [address], 01/06/2023 12:27:02 01/06/20 23 01/05/2023 [UNIT Y] ANEUP LOIDY NIPT fraction 7.9% normal Not Available [facility] [address] [facility], [place], [address], 01/12/2023 02:10:47 01/06/20 23 01/05/2023 [UNIT Y] ANEUP LOIDY NIPT sex chromosome aneuploidy NOT DETECT ED normal Not Available [facility] [address] [facility], [place], [address], 01/12/2023 02:10:47 01/06/20 23 01/05/2023 [UNIT Y] ANEUP LOIDY NIPT monosomy X LOW RISK <1 in 10,000 normal Not Available [facility] [address] [facility], [place], [address], 01/12/2023 02:10:47 01/06/20 23 01/05/2023 [UNIT Y] ANEUP LOIDY NIPT trisomy 13 LOW RISK <1 in 10,000 normal Not Available [facility] [address] [facility] , [place], [address], 01/12/2023 02:10:47 01/06/20 23 01/05/2023 [UNIT Y] ANEUP LOIDY NIPT trisomy 18 LOW RISK <1 in 10,000 normal Not Available [facility] [address] [facility], [place], [address], 01/12/2023 02:10:47 01/06/20 23 01/05/2023 [UNIT Y] ANEUP LOIDY NIPT trisomy 21 LOW RISK <1 in 10,000 normal Not Available [facility] [address] [facility], [place], [address], 01/12/2023 02:10:47 01/06/20 23 01/05/2023 [UNIT Y] ANEUP LOIDY NIPT sex FEMALE normal Not Available [facility] [address] [facility], [place], [address], 01/12/2023 02:10:47 01/06/20 23 01/05/2023 [UNIT Y] ANEUP LOIDY NIPT gestation SINGLE TON normal Not Available [facility] [address], [place], [address], 01/12/2023 02:10:47 01/06/20 23 01/05/2023 [UNIT Y] ANEUP LOIDY NIPT for detailed report, see pdf See PDF normal Not Available [facility] [address], [place], [address], 01/12/2023 02:10:47 01/06/20 23 01/05/2023 [UNIT Y] LAKISHA Caal sickle cell disease/beta -thalassemia /hemoglobino pathies carrier screen NEGATI VE normal Not Available [facility] [address], [place], [address], 01/18/2023 05:08:03 01/06/20 23 01/05/2023 [UNIT Y] LAKISHA Caal alpha-thalas semia carrier screen NEGATI VE normal Not Available [facility] [address], [place], [address], 01/18/2023 05:08:03 01/06/20 23 01/05/2023 [UNIT Y] LAKISHA Caal cystic fibrosis carrier screen NEGATI VE normal Not Available [facility] [address], [place], [address], 01/18/2023 05:08:03 01/06/20 23 01/05/2023 [UNIT Y] LAKISHA Caal spinal muscular atrophy carrier screen NEGATI VE 2 SMN1 copies , SNP not presen t normal Not Available [facility] [address], [place], [address], 01/18/2023 05:08:03 01/06/20 23 01/05/2023 [UNIT Y] LAKISHA Caal for detailed report, see pdf See PDF normal Not Available [facility] [address] [facility], [place], [address], 01/18/2023 05:08:03 02/03/20 23 02/03/2023 COMPR EHENS IVAN METAB OLIC PANEL sodium 138 mmol/ L 136 - 145 normal Not Available [address], [address], 02/03/2023 11:02:18 02/03/20 23 02/03/2023 COMPR EHENS IVAN METAB OLIC PANEL potassium 4.2 mmol/ L 3.5 - 5.1 normal Not Available [address], [address], 02/03/2023 11:02:18 02/03/20 23 02/03/2023 COMPR EHENS IVAN METAB OLIC PANEL chloride 104 mmol/ L 98 - 107 normal Not Available [address], [address], 02/03/2023 11:02:18 02/03/20 23 02/03/2023 COMPR EHENS IVAN METAB OLIC PANEL glucose 78 mg/dL 74 - 106 normal Not Available [address], [address], 02/03/2023 11:02:18 02/03/20 23 02/03/2023 COMPR EHENS IVAN METAB OLIC PANEL carbon dioxide 24 mmol/ L 20 - 32 normal Not Available [address], [address], 02/03/2023 11:02:18 02/03/20 23 02/03/2023 COMPR EHENS IVAN METAB OLIC PANEL calcium 9.3 mg/dL 8.5 - 10.1 normal Not Available [address], [address], 02/03/2023 11:02:18 02/03/20 23 02/03/2023 COMPR EHENS IVAN METAB OLIC PANEL creatinine 0.60 mg/dL 0.60 - 1.00 normal Not Available [address] [address], [address], 02/03/2023 11:02:18 02/03/20 23 02/03/2023 COMPR EHENS IVAN METAB OLIC PANEL eGFR 121 mL/mi n/1.7 3m2 >60 normal The eGFR is based on the CKD-E PI 2020 equat ion. To calcu late the new eGFR from a previ ous Creat inine or Cysta tin C resul t, go to https ://sabrina w.kid sanjay.o rg/pr ofess ional s/kdo qi/gf r_cal culat or Not Available [address], [address], 02/03/2023 11:02:18 02/03/20 23 02/03/2023 COMPR EHENS IVAN METAB OLIC PANEL AST 46 U/L 32 - 40 high Not Available [address], [address], 02/03/2023 11:02:18 02/03/20 23 02/03/2023 COMPR EHENS IVAN METAB OLIC PANEL ALT 93 U/L 14 - 59 high Not Available [address], [address], 02/03/2023 11:02:18 02/03/20 23 02/03/2023 COMPR EHENS IVAN METAB OLIC PANEL alk phos 104 U/L 46 - 116 normal Not Available [address], [address], 02/03/2023 11:02:18 02/03/20 23 02/03/2023 COMPR EHENS IVAN METAB OLIC PANEL albumin 3.2 g/dL 3.4 - 5.0 low Not Available [address], [address], 02/03/2023 11:02:18 02/03/20 23 02/03/2023 COMPR EHENS IVAN METAB OLIC PANEL protein, total 7.1 g/dL 6.4 - 8.2 normal Not Available [place] [facility] [facility] [address] [place], [address], 02/03/2023 11:02:18 02/03/20 23 02/03/2023 COMPR EHENS IVAN METAB OLIC PANEL bilirubin, total 0.4 mg/dL 0.2 - 1.0 normal Not Available [place] [facility] [address] [place] [address], [address], 02/03/2023 11:02:18 02/03/20 23 02/03/2023 COMPR EHENS IVAN METAB OLIC PANEL urea nitrogen (BUN) 9 mg/dL 6 - 31 normal Not Available [address], [address], 02/03/2023 11:02:18 02/03/20 23 02/02/2023 urina lysis , dipst ick Leukocytes Negati ve Not Available [address], [address], 02/02/2023 14:37:37 02/03/20 23 02/02/2023 urina lysis , dipst ick Nitrite negati ve Not Available [address], [address], 02/02/2023 14:37:37 02/03/20 23 02/02/2023 urina lysis , dipst ick Urobilinogen .2 Not Available [address], [address], 02/02/2023 14:37:37 02/03/20 23 02/02/2023 urina lysis , dipst ick Protein Trace Not Available [address], [place], [address], 02/02/2023 14:37:37 07/1202/02/2023 urina lysis , dipst ick pH 5.0 Not Available [facility] [address], [place], [address], 02/02/2023 14:37:37 02/03/20 23 02/02/2023 urina lysis , dipst ick Blood Large Not Available [facility] [address], [place], [address], 02/02/2023 14:37:37 02/03/20 23 02/02/2023 urina lysis , dipst ick Specific [place] 1.030 Not Available [facility] [address], [place], [address], 02/02/2023 14:37:37 02/03/20 23 02/02/2023 urina lysis , dipst ick Ketone Negati ve Not Available [facility] [address], [place], [address], 02/02/2023 14:37:37 02/03/20 23 02/02/2023 urina lysis , dipst ick Bilirubin Negati ve Not Available [place] [address], [place], [address], 02/02/2023 14:37:37 02/03/20 23 02/02/2023 urina lysis , dipst ick Glucose Negati ve Not Available [facility] [address], [place], [address], 02/02/2023 14:37:37 02/03/20 23 02/02/2023 urina lysis , dipst ick Appearance Cloudy Not Available [facility] [address], [place], [address], 02/02/2023 14:37:37 02/03/20 23 02/02/2023 urina lysis , dipst ick Color Dark Yellow Not Available [facility] [address] [place], [address], 02/02/2023 14:37:37 02/10/20 23 02/10/2023 COMPR EHENS IVAN METAB OLIC PANEL sodium 139 mmol/ L 136 - 145 normal Not Available [address], [address], 02/10/2023 11:28:07 02/10/20 23 02/10/2023 COMPR EHENS IVAN METAB OLIC PANEL potassium 4.2 mmol/ L 3.5 - 5.1 normal Not Available [address], [address], 02/10/2023 11:28:07 02/10/20 23 02/10/2023 COMPR EHENS IVAN METAB OLIC PANEL chloride 104 mmol/ L 98 - 107 normal Not Available [address], [address], 02/10/2023 11:28:07 02/10/20 23 02/10/2023 COMPR EHENS IVAN METAB OLIC PANEL glucose 83 mg/dL 74 - 106 normal Not Available [address], [address], 02/10/2023 11:28:07 02/10/20 23 02/10/2023 COMPR EHENS IVAN METAB OLIC PANEL carbon dioxide 23 mmol/ L 20 - 32 normal Not Available [address], [address], 02/10/2023 11:28:07 02/10/20 23 02/10/2023 COMPR EHENS IAVN METAB OLIC PANEL calcium 8.3 mg/dL 8.5 - 10.1 low Not Available [address], [address], 02/10/2023 11:28:07 02/10/20 23 02/10/2023 COMPR EHENS IVAN METAB OLIC PANEL creatinine 0.59 mg/dL 0.60 - 1.00 low Not Available [address], [address], 02/10/2023 11:28:07 02/10/20 23 02/10/2023 COMPR EHENS IVAN METAB OLIC PANEL eGFR 122 mL/mi n/1.7 3m2 >60 normal The eGFR is based on the CKD-E PI 2020 equat ion. To calcu late the new eGFR from a previ ous Creat inine or Cysta tin C resul t, go to https ://sabrina grace.emmie jenkins/jerald sibley s/zuleymao qi/gf r_cal culat or Not Available [address], [address], 02/10/2023 11:28:07 02/10/20 23 02/10/2023 COMPR EHENS IVAN METAB OLIC PANEL AST 17 U/L 32 - 40 low Not Available [address], [address], 02/10/2023 11:28:07 02/10/20 23 02/10/2023 COMPR EHENS IVAN METAB OLIC PANEL ALT 28 U/L 14 - 59 normal Not Available [address], [address], 02/10/2023 11:28:07 02/10/20 23 02/10/2023 COMPR EHENS IVAN METAB OLIC PANEL alk phos 90 U/L 46 - 116 normal Not Available [address], [address], 02/10/2023 11:28:07 02/10/20 23 02/10/2023 COMPR EHENS IVAN METAB OLIC PANEL albumin 2.9 g/dL 3.4 - 5.0 low Not Available [address], [address], 02/10/2023 11:28:07 02/10/20 23 02/10/2023 COMPR EHENS IVAN METAB OLIC PANEL protein, total 6.6 g/dL 6.4 - 8.2 normal Not Available [facility] [address] [place] [address], [address], 02/10/2023 11:28:07 02/10/20 23 02/10/2023 COMPR EHENS IVAN METAB OLIC PANEL bilirubin, total 0.1 mg/dL 0.2 - 1.0 low Not Available [facility] [address] [place] [address], [address], 02/10/2023 11:28:07 02/10/20 23 02/10/2023 COMPR EHENS IVAN METAB OLIC PANEL urea nitrogen (BUN) 6 mg/dL 6 - 31 normal Not Available [facility] [address] [place] [address], [address], 02/10/2023 11:28:07 12/06/19 23 12/01/2022 US, trans vagin al No observ ation record ed. [email or web address] [address], [place], [address], 12/07/2022 15:38:14 01/17/20 23 01/14/2023 US, trans vagin al No observ ation record ed. [email or web address] Not Available 01/17 14:20:38 02/23/20 23 02/22/2023 imagi ng/di agnos tic resul t No observ ation record ed. [facility] [address] [place], [address], 02/22/2023 16:32:26 Result Notes None recorded. Problems Name Problem SNOMED Code Status Onset Date Resolution Date Notes Provider Name and Address Organization Details Recorded Time 44909222 Completed 023 09/28/2024 Verna Kebede [facility], [facility] IV 16:54:06 Problem Notes None recorded. Procedures Surgical History Date Name Laterality Status Provider Name and Address Organization Details Recorded Time 11/11/19 Date of Last Pap Smear completed [facility] 11/10/2022 11:31:08 Appendectomy completed [facility] 11/10/2022 11:20:41 Gall bladder completed [facility] 11/10/2022 11:20:41 Removal of tonsils completed [facility] 11/10/2022 11:27:15 Imaging Results Imaging Date Name Status LastModified by Organization Details LastModified Time 12/01/2022 US, transvaginal completed [email or web address] [address], [place], [address], 12/07/2022 15:38:14 01/14/2023 US, transvaginal completed [email or web address] Informat ion not available 01/17/2023 14:20:38 02/22/2023 imaging/diagnost ic result completed [facility] [address] [place], [address], 02/22/2023 16:32:26 Procedure Notes None recorded. Medical Equipment None Reported. Allergies No known drug allergies Medications Name Sig Start Date Stop Date Status Note LastModified by Organization Details LastModified Time Flomax 0.4 mg capsule Take 1 capsule every day by oral route with meals. 2022 active Not Available Not Available Not Avai lable lidocaine 4 % topical patch APPLY 1 PATCH TOPICALLY TO THE SKIN EVERY DAY active Not Available Not Available No t Available hydrocodone 5 mg-acetamin ophen 325 mg tablet TAKE 1 TABLET BY MOUTH EVERY 8 HOURS NEEDED 01/05 completed Not Available Not Available Not Available metronidazo le 500 mg tablet TAKE 1 TABLET BY MOUTH EVERY 12 HOURS FOR 7 DAYS 12/01 completed Not Available Not Available Not Available famotidine 20 mg tablet TAKE 1 TABLET BY MOUTH DAILY active Not Available Not Available No t Available metoclopram shar 5 mg tablet TAKE 1 TABLET BY MOUTH THREE TIMES DAILY NEEDED FOR NAUSEA OR VOMITING 01/05 completed Not Available Not Available Not Available docusate sodium 100 mg capsule TAKE 1 CAPSULE BY MOUTH EVERY DAY active Not Available Not Available No t Available methylpredn isolone 4 mg tablets in a dose pack FOLLOW PACKAGE DIRECTION S active Not Available Not Available No t Available ondansetron 4 mg disintegrat ing tablet DISSOLVE 2 TABLETS ON THE TONGUE TWICE DAILY active Not Available Not Available No t Available amoxicillin 875 mg-jesúsu m clavulanate 125 mg tablet TAKE 1 TABLET BY MOUTH EVERY 12 HOURS FOR 10 DAYS 12/21 completed Not Available Not Available Not Available aripiprazol e 10 mg tablet TAKE 1 TABLET BY MOUTH AT BEDTIME 11/10 completed Not Available Not Available Not Available aripiprazol e 5 mg tablet TAKE 1 TABLET BY MOUTH AT BEDTIME FOR 7 DAYS 11/10 completed Not Available Not Available Not Available nitrofurant oin monohydrate /macrocryst als 100 mg capsule TAKE 1 CAPSULE BY MOUTH EVERY 12 HOURS active Not Available Not Available No t Available Abilify active Not Available Not Avail able Not Available SmoothLax 17 gram oral powder packet MIX 17 GRAMS IN LIQUID AND DRINK FOUR TIMES DAILY active Not Available Not Available No t Available + DHA active Not Available Not Available Not Available OneLAX Bisacodyl 10 mg rectal suppository INSERT 10MG RECTALLY THREE TIMES DAILY NEEDED FOR CONSTIPAT ION active Not Available Not Available No t Available Vitals Date Recorded Body height Body mass index (BMI) Body weight Systolic blood pressure Diastolic blood pressure Provider Name and Address Organization Details Last Updated DateTime 11/10/2022 160.02 cm 32.2 kg/m2 41902.81 g 122 mm[Hg] 80 mm[Hg] Vernajanie Kebede [facility] 3 11:25:47 Date Recorded Body height Body mass index (BMI) Body temperature Systolic blood pressure Diastolic blood pressure Provider Name and Address Organization Details Last Updated DateTime 3 160.02 cm 32.3 kg/m2 97.6 [degF] 118 mm[Hg] 72 mm[Hg] Anh Hardy [facility] 3 12:30:01 Date Recorded Body weight Provider Name an d Address Organization Details Last Updated DateTime 12/01/[phone] g Eliel Oquendo MD [address] [place], [address], [facility] 01/05/2023 15:45:44 Date Recorded Body height Body mass index (BMI) Systolic blood pressure Diastolic blood pressure Provider Name and Address Organization Details Last Updated DateTime 01/05/2023 160.02 cm 32.4 kg/m2 100 mm[Hg] 52 mm[Hg] Cris Cool [place] - [facility] 01/05/2023 15:24:26 Date Recorded Body weight Provider Name an d Address Organization Details Last Updated DateTime 01/05/2023 71013.37897 g Eliel Oquendo MD [facility] [place], [address], [place] [facility] 01/05/2023 15:45:44 Date Recorded Body height Body mass index (BMI) Body temperature Systolic blood pressure Diastolic blood pressure Provider Name and Address Organization Details Last Updated DateTime 02/02/2023 160.02 cm 33 kg/m2 97 [degF] 110 mm[Hg] 60 mm[Hg] Laurie Ahuja [place] [facility] 14:27:39 Date Recorded Body weight Provider Name an d Address Organization Details Last Updated DateTime 02/02/2023 56782.574317 g DULCE MARIA BLAS DO [facility] [place], [address], [place] [facility] 02/02/2023 14:34:23 Social History Question Answer Notes LastModified by Organizat ion Details LastModified Time Tobacco Smoking Status Never Smoker Verna mckeon, [place] - [facility] 11/10/2022 11:20:38 What Is Your Level Of Alcohol Consumption? None [email or web address] Information not available 12/01/2022 Are You Blind Or Do You Have Difficulty Seeing? No Information not available 12/22/2022 Are You Deaf Or Do You Have Serious Difficulty Hearing? No Information not available 12/22/2022 What Type Of Diet Are You Following? REGULAR [email or web address] Information not available 11/10/2022 Do You Or Have You Ever Used E-cigarettes Or Vape? Never Used Electronic Cigarettes [email or web address] Information not available 11/10/2022 How Many Children Do You Have? 0 [email or web address] Information not available 11/10/2022 What Is Your Relationship Status? Domestic Partner [email or web address] Information not available 11/10/2022 Are You Sexually Active? Yes [email or web address] Information not available 11/10/2022 Do You Use Any Illicit Or Recreational Drugs? No Information not available 12/22/2022 Do You Or Have You Ever Used Any Other Forms Of Tobacco Or Nicotine? No Information not available 12/22/2022 Sex: Female Functional Status Question Answer Note LastModified by Organization D etails LastModified Time What is your exercise level? None [email or web address] Information not available 11/10/2022 Mental Status None recorded. Family History Relationship Description Onset Age of this Age Resolved Age Notes LastModified by Organization Details LastModified Time Father No current problems or disability [email or web address] Not available 10/23 11:26:59 Mother No current problems or disability [email or web address] Not available 10/23 11:26:59 Medical History Condition Response Other Cancer N High Blood Pressure N Colon Cancer N Cytomegalovirus N Hyperthyroidism N Herpes (HSV) N Breast Cancer N Blood Transfusion N MRSA N Lung Cancer N Hypothyroidism N Depression N Incontinence N Panic Attacks N Neurological Disorder N Deep Vein Thrombosis N Anxiety Disorder N Autoimmune disease N Arthritis N Tuberculosis/Positive PPD N Shingles N Polycystic Ovarian Syndrome N Cervical Cancer N Chlamydia N Hematuria N Stroke N Varicosities N Crohn's Disease N Seasonal allergies N Alzheimer's/Dementia N COPD/Emphysema N HPV/Genital Warts N Endometriosis N IBS (Irritable Bowel Syndrome) N History of Abnormal Pap N High Cholesterol N Liver Disease N Kidney Infection N Fibromyalgia N Ulcer N Kidney Disease N HIV N Gallbladder disease N Sickle Cell Disease/Trait N Von Willebrand disease N ADD/ADHD N Eating Disorder N Anemia N Diabetes Mellitus (non-insulin dependent ) N Ovarian Problems N Multiple Sclerosis N Gonorrhea N Frequent Urinary Tract infections N Osteopenia N Headaches/migraines N GERD (reflux) N Ovarian Cancer N Diabetes (insulin dependent) N Seizures/Epilepsy N Fibroids N Heart Attack N Asthma N Lupus N Endometrial Cancer N Rubella N Blood Clotting Disorder N Bipolar Disorder Y Diabetes Mellitus (during ) N Ulcerative Colitis N Hepatitis N Heart Disease N Pulmonary Embolism N RPR N Chicken Pox N Osteoporosis N Gynecological History Statement/Question Response Flow Moderate Date of last HPV 11/10/2022 Date of LMP 09/24/2022 HPV Vaccine N Duration of Flow (days) 4 Most Recent Mammogram Current Control Method Age at Menarche 10 Date of Last Colonoscopy Most Recent Bone Density Frequency of Cycle (Q days) 25 Date of Last Pap Smear 11/10/2022 Obstetrics History GPAL:G 1 P 0 0 0 0 Type Value Living 0 Total 1 Past Encounters Encounter ID Performer Location Encounter Start Date Encounter Closed Date Diagnosis/Indication Diagnosis SNOMED-CT Code Diagnosis ICD10 Code Diagnosis Note [id number] [facility] [address] [place] [address] 11/10/2022 11:18:46 11/10/2022 11:49:46 Amenorrhea 30454725 N91.0 N91.1 Z32.00 test positive 886272578 Z32.01 Order given to have HCG drawn at [facility]. NOB visit scheduled. Pelvic u/s ordered to confirm viability and JAKE Screening for malignant neoplasm of cervix 813490513 Z12.4 ASCCP guidelines reviewed with pt. Pap collected and sent. Further POC pending lab result review. Pt states understand ing of POC. Blood in urine 74063454 R31.9 Urine cx sent for heme in urine Gynecologi c examination 23761830 Z01.419 32y.o. here for annual exam. - Pap today/ HPV cotesting Discussed natural course of HPV infection, ASCCP guidelines . - Mammo at age 39, no increased risk -diet and exercise reviewed - RTO for annual or PRN [id number] DULCE MARIA BLAS DO [facility] [address] [place] [address] 12/01/2022 11:49:21 12/01/2022 16:39:27 detection examination 13596956 Z32.01 32 yo @ 9w5d based on LMP c/w USConfirma tion of today. has not been previously confirmed at another healthcare facility. 1) First trimester teaching provided.- --foods and activities to avoid---sa fe meds---dayanara entation to practice-- -delivery locations- --MADDI visit progressio n---prenat al vitamins daily 2) Review previous OBGYN and health history that may affect - --Bipolar disorder, stopped Abilify w/ +UPT, discussed resuming-- -h/o kidney stones 3) S/S SAB reviewed and when to seek NOB care 4)RTC 4 weeks MADDI with NOB labs 5) EDC: 07/01/23 Right flank pain 2645518 09 R10.9 [id number] Eliel Oquendo MD [facility] h [address] [place] [address] 01/05/2023 15:14:42 01/12/2023 08:51:52 Routine care 521310457 Z34.01 Z34.81 O09.511 O09.521 Urinary tr act infectious disease 55748434 N39.0 Constipation 81715129 K5 9.00 screening 2437 07007 Z36.0 Carrier de tection, molecular genetics 3081309 Z14.8 Gestation period, 14 weeks 30585947 Z3A.14 [id number] DULCE MARIA BLAS DO [facility] [address] [place] [address] 02/02/2023 13:49:31 02/02/2023 18:07:20 Gestation period, 18 weeks 29531268 Z3A.18 Routine an tenatal care 668091395 Z34.92 Allergic urticaria 93272 009 L50.0 Right flank pain 5887849 09 R10.9 screening for malformation 977577482 Z36.3 Health Concerns Section Related Observation LastModified by Organization Detai ls LastModified Time None Recorded Concern Status LastModified by Organization Details LastModified Time None Recorded Advance Directives Directive None Recorded Payers Encounter Date Sequence Insurance Name Policy Number Policy Anderson Covered Member ID Anderson Member ID Guarantor Name 11/10/2022 1 [place] [employer] Michelle N Atnip [id number] Michelle N Atnip 12/01/2022 1 [place] [facility] Michelle N Atnip [id number] Michelle N Atnip 01/05/2023 1 [place] [facility] [place] [facility] Michelle N Atnip [id number] Michelle N Atnip 02/02/2023 1 [place] [facility] [place] [facility] Michelle N Atnip [id number] Michelle N Atnip Notes Date Note Type Note Provider Name and Address Organization Details Recorded Time 11/10/2022 text/html Annual GYNReport ed bypatient.Menstrual cycle:Missed most recent period Urinary symptoms:No hematuria; No incontinence Vulva:No genital lesion Vagina:Normal vaginal discharge Breast:No breast pain; No breast lump; No nipple discharge Sexual complaints:No sexual complaints; No pain during intercourse; Normal libido Menopausal Symptoms:No menopausal symptoms; Normal vaginal lubrication Psychological symptoms:No depression; No anxiety; No PMDD Michelle is a new patient here for her AEX. Her last pap was years ago. She presented to [facility] ER 11/10/22 for c/o pelvic pain and for confirmation. She had an HCG of 999 and was told to f/u with [facility]. She has never been . She is on a PNV. She denies N/V. PRINCESS Michael [address] [place] [address], [address], [employer] [facility] 11/10/2022 13:28:52 12/01/2022 text/html Confirmation VisitReported bypatient.obstetric s and gynecologyLMP: (09/24/2022); no bleeding between periods JAKE based on LMP. DULCE MARIA BLAS DO [address] [place] [address], [place], [address], [employer] IV 12/01/2022 12:49:39 01/05/2023 text/html Michelle is here today for a routine OB visit. She is currently at 14.5 weeks gestation. She has no complaints or questions. She is taking vitamins. She has not yet felt movement. She denies the presence of vaginal bleed, leaking fluid, abdominal cramps, nausea, vomiting. Eliel Oquendo MD [address] [place] [address], [place], [address], [facility] [employer] IV 01/05/2023 17:31:32 02/02/2023 text/html Pt here for MADDI in 1st trimester. +FM, denies VB, LOF. Denies HAWK, vision changes, RUQ pain, contractions Patient states she has rash on her arm and stomach and legs, pt also state that she has been having pains like she has kidney stones DULCE MARIA AVIVA, DO [address] [facility], [place], [address], [facility] 02/02/2023 14:51:35 OBGyn Episode Ob Episode Information Episode Created Date Number of Fetuses Patient Bloodtype Patient rh Status Prepregnancy Weight lbs Domestic Partner Domestic Partner Phone Father Name Multi Care Technician Status 12/02/19 23 1 Positive CLOSED Fetus Data First Name Last Name Admitted to NICU Weight (g) Sex Living Outcome Pediatric Complications Fetus ID Race Codes Race Delivery Type [id number] Jake Calculation Initial Jake Date Initial Exam Date Initial Exam Provider Initial Ultrasound Date Last Menstrual Period Date Ultra Sound Weeks Gestation 12/01/2022 0 Eighteen To Twenty Week Jake Update Ultra Sound Date Fundal Height At Umbil Quickening Date Ultra Sound Latest Weeks Gestation Final Jake Confirmed By Final Jake Confirmed Date Final Jake Date Ultra Sound Latest Days Gestation 12/02/19 23 9 07/01/20 23 5 Pre- Flowsheet Flowsheet Date 12/01/2022 Daniels Score Blood Edema Fundus Height Fundus Units Glucose Ketones Leukocytes Nitrite Labor Signs Protein Cervic Dilation Cervic Effacement Cervic Station Type Weight in lbs Pre/Post Dialysis Refused Weight 182.953051163554 BP Diastolic BP Location Tested BP Systolic BP Type 72 118 Fetus Heart Rate Present A 169 Present Fetus Movement A No Comments Flowsheet Date 01/05/2023 Daniels Score Blood Edema Fundus Height Fundus Units Glucose Ketones Leukocytes Nitrite Labor Signs Protein Cervic Dilation Cervic Effacement Cervic Station 14 Type Weight in lbs Pre/Post Dialysis Refused With clothes 183.433135464227 BP Diastolic BP Location Tested BP Systolic BP Type 52 100 Fetus Heart Rate Present A 159 Fetus Movement A Yes Comments Right kidneys stone pain, do es not have urologist. Referral to urology case done today. NOB labs are due to draw today with unity ordered. RTC 4 weeks, Size=Dates. precautions given all Qs answered. Call if bleeding or leakage of fluid. She is suffering from constipation Rx sent, Pt to call if still not working and advised to change diet and po H2O Flowsheet Date 02/02/2023 Daniels Score Blood Edema Fundus Height Fundus Units Glucose Ketones Leukocytes Nitrite Labor Signs Protein Cervic Dilation Cervic Effacement Cervic Station Type Weight in lbs Pre/Post Dialysis Refused With clothes 186.904343911290 BP Diastolic BP Location Tested BP Systolic BP Type 60 110 sitting Fetus Heart Rate Present Fetus Movement Comments still having right flank and RQU pain with blood in urine and increased specific gravity, send in lidocaine patch and flomax. CMP ordered. has h/o rocco and appy. also has hives throughout extremities, allergic to alfalfa and her partner farms it. failed steroid cream, will send in medrol dose pack. RTO in 4 weeks Menstrual History Last Menstrual Date Menses Monthly On Bcp Conception Prior Menses Frequency Hcg Plus Date Menarche Onset Age Genetic Screening And Infection History Question Response Note Thalassemia (Slovak, Hungarian, Mediterranean, Or Background): MCV < 80 false Intellectual Disability/Autism false Personal or Family History of Congenital Heart D efect false History of Hepatitis false Muscular Dystrophy false Sickle Cell Disease Or Trait () false Patient Or Partner Has History Of Genital Herpes false Hemophilia Or Other Blood Disorders false Richard Disease false Patient's Age Will Be 35 Years Or Older At Estim ated Date of Delivery false If Yes, Agent(s) And Strength/Dosage false Medications (including Suppl ements, Vitamins, Herbs, OTC Drugs), Illicit/Recreational Drugs, Alcohol false Other Structural Defect false Recent Travel History Outside of Country false Maternal Metabolic Disorder (eg, Type 1 Diabetes , PKU) false Vik-Sachs (eg, Voodoo, Cajun, Azeri-Treutlen) f alse Other Infection History false Seneca's Chorea false Cystic Fibrosis false Recurrent Loss, Or A Stillbirth false Rash Or Viral Illness Since Last Menstrual Perio d false Live With Someone With TB Or Exposed To TB false Mental Retardation/Autism false If Yes, Was Person Tested For Fragile X? false History of HIV false Any Other Genetic History false Hemoglobinopathy Or Carrier false Prior GBS-infected child false Down Syndrome false Other Inherited Genetic Or Chromosomal Disorder false Patient Or Baby's Father Had A Child With Defects Not Listed Above false Personal or Family History o f Neural Tube Defect (Meningomyelocele, Spina Bifida, Or Anencephaly) false History Of STD, Gonorrhea, Chlamydia, HPV, Syphi lis false Plans and Education First Trimester Discussed Date Discussion Item Discussion Note Discuss ed By 01/05/2023 HIV and other routine tests [email or web address] 01/05/2023 Risk factors identif ied by history [email or web address] 01/05/2023 Anticipated course of care [email or web address] Second Trimester Discussed Date Discussion Item Discussion Note Discuss ed By Third Trimester Discussed Date Discussion Item Discussion Note Discuss ed By Delivery Information Delivery Date Delivery Type Labor Anesthesia Weeks Gestation Incision Type Labor Labor Length Hrs Delivered By Post Complications Tubal Sterilization Discharge Date Comments Discharge Information Feeding Method Contraceptive Method Maternal HG B and HCT Levels
--- OUTSIDE RECORDS SUMMARY | 2024-11-13 13:28 | XMS_ITS | Clinical Summary ---
Author Organization [facility] Address [address] [place] [address] Care Team Providers Care Ems Helicopter Pilot Name Role Phone Sagrario Etienne MD Primary Care Provider [phone] Allergies No known active allergies Medications albuterol sulfate HFA 108 (90 Base) MCG/ACT inhaler Inhale 2 puffs into the lungs every 6 (six) hours as needed. 8 g 4 Active metroNIDAZOLE (FLAGYL) 500 MG tablet Take 1 tablet (500 mg total) by mouth 2 (two) times a day. 14 tablet 4 Active HYDROcodone-ac etaminophen (NORCO) 5-325 MG tabletIndicati ons:Acute Pain < 3 Day Supply Take 1 tablet by mouth every 6 (six) hours as needed. Indications: Acute Pain < 3 Day Supply Do not exceed 4g of acetaminophen in a day. 10 tablet 4 Active Social History Tobacco Use Types Packs/Day Years Used Date Smoking Tobacco: Never Smokeless Tobacco: Never Tobacco Cessation:Counseling Given: Not Answered Alcohol Use Standard Drinks/Week Comments Yes 0 (1 standard drink = 0.6 oz pur e alcohol) Comments No Sex and Gender Information Value Date Recorded Sex Assigned at Not on file Legal Sex Female 4:12 PM CDT Gender Identity Not on file Sexual Orientation Not on file Last Filed Vital Signs Vital Sign Reading Time Taken Comments Blood Pressure 98/71 04/16/2024 3:53 AM CDT Pulse 62 04/16/2024 3:53 AM CDT Temperature 36.3 C (97.3 F) 04/16/2024 3:53 AM CDT Respiratory Rate 16 04/16/2024 3:53 AM CDT Oxygen Saturation 96% 04/16/2024 3:53 AM CDT Inhaled Oxygen Concentration - - Weight 97.5 kg (215 lb) 04/16/2024 12:07 AM CDT Height 160 cm (5' 3 ) 04/16/2024 12:07 AM CDT Body Mass Index 38.09 04/16/2024 12:07 AM CDT Plan of Treatment Health Maintenance Due Date Last Done Comments Cervical Cancer Screening Pa p Smear (Age 30 to 64) Every 3 Years 1989 Annual Physical 1992 Hepatitis C 11/10/2007 Hepatitis B Vaccines (1 of 3 - 19+ 3-dose series) 2008 Cervical Cancer Screening Pa p with HPV Testing (Age 30 to 64) Every 5 Years 11/10/2019 Cervical Cancer Screening with HPV 11/10/2019 COVID-19 Vaccine (1 - 2023-2 5 season) 2024 DTaP, Tdap and Td Vaccines ( 2 - Td or Tdap) 12/21/2024 12/21/2014 HPV Vaccines Aged Out No longer eligi ble based on patient's age to complete this topic Meningococcal B Vaccine Aged Out No l onger eligible based on patient's age to complete this topic Meningococcal Vaccine Aged Out No yazan edward eligible based on patient's age to complete this topic Pneumococcal Vaccine: Pediat rics (0 to 5 Years) and At-Risk Patients (6 to 49 Years) Aged Out No longer eligi ble based on patient's age to complete this topic RSV Immunizations Under 20 Months Aged Out No longer eligible based on patient's age to complete this topic Insurance NEAL Care Teams Ems Helicopter Pilot Relationship Specialty Start Date End Date Sagrario Etienne MD [address] [place] [address] PCP - General FAMILY PRACTICE 04/16/24
[2024-11-14 04:24] LABS: GGT 24 U/L (3-50)
== END 2024-11-13 11:30 | disposition home or self-care (01) ==
LOC: ANHLAB 11:33
PROVIDERS: PCP Family Medicine; Visit Provider Student in an Organized Health Care Education/Training Program
DX: R74.8 Abnormal levels of other serum enzymes (principal)
CPT/HCPCS: 36415; 80074; 80076; 82977

== ENCOUNTER 2025-02-25 10:26 | Outpatient (CLI) | payer OTHER, SELFPAY ==
--- OUTSIDE RECORDS SUMMARY | 2025-02-25 10:58 | XMS_ITS | Clinical Summary ---
Author Organization [facility] Address [address] [place] [address] Care Team Providers Care Semiconductor Lab Technician Name Role Phone Sagrario Etienne MD Primary Care Provider [phone] Allergies No known active allergies Medications albuterol sulfate HFA 108 (90 Base) MCG/ACT inhaler Inhale 2 puffs into the lungs every 6 (six) hours as needed. 8 g 03/01/20 24 Active metroNIDAZOLE (FLAGYL) 500 MG tablet Take 1 tablet (500 mg total) by mouth 2 (two) times a day. 14 tablet 03/07/20 24 Active HYDROcodone-acetam inophen (NORCO) 5-325 MG tabletIndications: Acute Pain < 3 Day Supply Take 1 tablet by mouth every 6 (six) hours as needed. Indications: Acute Pain < 3 Day Supply Do not exceed 4g of acetaminophen in a day. 10 tablet 03/07/20 24 Active albuterol sulfate HFA 108 (90 Base) MCG/ACT inhaler Inhale 2 puffs into the lungs every 4 (four) hours as needed for Wheezing or Shortness of breath. Use with spacer. 18 g 12/27/19 25 Active ondansetron (ZOFRAN-ODT) 4 MG disintegrating tablet Take 1 tablet (4 mg total) by mouth every 8 (eight) hours as needed. 10 tablet 12/27/19 25 Active Encounters Date Type Department Care Team Description 12/26/2024 10:19 AM CDT - 12/26/2024 1:32 PM CDT Emergency [facility] Emergency Room [address] [place] [address] Audra Adams MD Chest Pain; Shortness Of Breath ; Fever Discharge Disposition: Home or Self Care (Routine Discharge) 12/26/2024 Travel from Last 3 Months Social History Tobacco Use Types Packs/Day Years [...] Sign Reading Time Taken Comments Blood Pressure 97/71 12/26/2024 10:18 AM CDT Pulse 75 12/26/2024 10:18 AM CDT Temperature 36.7 C (98.1 F) 12/26/2024 10:18 AM CDT Respiratory Rate 18 12/26/2024 10:18 AM CDT Oxygen Saturation 98% 12/26/2024 10:18 AM CDT Inhaled Oxygen Concentration - - Weight 83.9 kg (185 lb) 12/26/2024 10:16 AM CDT Height 160 cm (5' 3) 12/26/2024 10:16 AM CDT Body Mass Index 32.77 12/26/2024 10:16 AM CDT Plan of Treatment Health Maintenance Due Date Last Done Comments Cervical Cancer Screening Pa p Smear (Age 30 to 64) Every 3 Years 1989 Annual Physical 1992 Hepatitis C 11/10/2007 Hepatitis B Vaccines (1 of 3 - 19+ 3-dose series) 2008 HPV Vaccines (1 - 3-dose SCD M series) 2016 Cervical Cancer Screening Pa p with HPV Testing (Age 30 to 64) Every 5 Years 11/10/2019 Cervical Cancer Screening with HPV 11/10/2019 COVID-19 Vaccine (2023-2 5 season) 2024 DTaP, Tdap and Td Vaccines ( 2 - Td or Tdap) 12/21/2024 12/21/2014 Meningococcal B Vaccine Aged Out No l [...] on patient's age to complete this topic Procedures Procedure Name Priority Date/Time Associated Diagnosis Comments LACTIC ACID STAT 12/26/2024 12:42 PM CDT CULTURE, BACTERIA, BLOOD STAT 12/26/2024 11:55 AM CDT CULTURE, BACTERIA, BLOOD STAT 12/26/2024 11:55 AM CDT XR CHEST PA OR AP 1V STAT 12/26/2024 11:32 AM CDT INFLUENZA A & B STAT 12/26/2024 10:18 AM CDT CORONAVIRUS (COVID 19) STAT 10:18 AM CDT CHORIONIC GONADOTROPIN HCG QL STAT 12/26/2024 10:18 AM CDT LACTIC ACID STAT 12/26/2024 10:18 AM CDT COMPREHENSIVE METABOLIC PANEL STAT 12/26/2024 10:18 AM CDT CBC W/DIFF AUTOMATED STAT 12/26/2024 10:18 AM CDT from Last 3 Months Results * LACTIC ACID - SINGLE (12/26/2024 12:42 PM CDT) Only the most recent of2 resultswithin the time period is included. LACTIC ACID VENOUS 1.3 0.4 - 2.0 MMOL/L 12/26/2024 1:18 PM CDT [facility] 12/26/2024 12:4 2 PM CDT Audra Adams MD LABORATORY Final Result Performing Organization Address City/[facility]/ZIP Co de Phone Number [facility] [address] [place] [address], [place] [phone] * BLOOD CULTURE #2 (12/26/2024 11:55 AM CDT) Only the most recent of2 resultswithin the time period is included. SPEC DESCRIPTION BLOOD 12/27/19 12:15 PM CDT [facility] SPECIAL REQUESTS LAC SP 12/27/19 12:15 PM CDT [facility] CULTURE RESULT NO GROWTH 5 DAYS 12/31/2024 7:41 PM CDT [facility] BLOOD SPECIMEN OBTAINED FOR BLOOD CULTURE / Unknown 12/26/2024 11:55 AM CDT 12/26/2024 12:15 PM CDT Audra Adams MD MICROBIOLOGY - GENERAL ORDER BRANDON Final Result Performing Organization Address [facility] Co de Phone Number [facility] [address] [place] [address], [place] [phone] [facility] [address] [place] [address], [place] [phone] * XR CHEST PA OR AP 1V (12/26/2024 11:32 AM CDT) Anatomical Region Laterality Modality Chest Radiographic Deborah ging 12/26/2024 11:3 7 AM CDT Impressions 12/26/2024 11:38 AM CDT IMPRESSION: No radiographic evidence of acute cardiopulmonary disease. Ordered By: AUDRA ADAMS Interpreted By: Romario Benavides, 12/26/2024 11:37 AM Narrative 12/26/2024 11:38 AM CDT [facility] [address] [place] [address] EXAMINATION: XR CHEST PA OR AP 1V INDICATIONS: Fever, cough COMPARISON: 03/01/2024 FINDINGS: Single frontal radiograph of the chest limited by portable technique demonstrates normal lung expansion without consolidation, effusion, or pneumothorax. No bulky hilar adenopathy. The cardiomediastinal contours are maintained. Heart size is normal. No acute or aggressive osseous abnormality. Procedure Note Romario Benavides MD - 12/26/2024 [facility] [address] [place] [address] EXAMINATION: XR CHEST PA OR AP 1V INDICATIONS: Fever, cough COMPARISON: 03/01/2024 FINDINGS: Single frontal radiograph of the chest limited by portable techniquedemonstrates normal lung expansion without consolidation, effusion, orpneumothorax. No bulky hilar adenopathy. The cardiomediastinal contours are maintained. Heart size is normal. No acute or aggressive osseous abnormality. IMPRESSION: No radiographic evidence of acute cardiopulmonary disease. Ordered By: AUDRA ADAMS Interpreted By: Romario Benavides, 12/26/2024 11:37 AM Audra Adams MD GENERAL IMAGING Final Result * CORONAVIRUS (COVID-19) MOLECULAR (12/26/2024 10:18 AM CDT) CORONAVIRUS SARS COV 2 RNA NEGATIVE NEGATIVE 12/26/2024 11:08 AM CDT [facility] Comment: NEGATIVE RESULTS DO NOT RULE OUT COVID 19 AND SHOULD NOT BE USED THE SOLE BASIS FOR TREATMENT OR PATIENT MANAGEMENT DECISIONS, INCLUDING INFECTION CONTROL DECISIONS. NEGATIVE RESULTS SHOULD BE CONSIDERED IN THE CONTEXT OF A PATIENT'S RECENT EXPOSURES, HISTORY AND THE PRESENCE OF CLINICAL SIGNS AND SYMPTOMS CONSISTENT WITH COVID 19. THE ID NOW COVID-19 2.0 TEST HAS BEEN AUTHORIZED BY THE FDA UNDER EAU FOR USE BY AUTHORIZED LABORATORIES. PERFORMED BY NUCLEIC ACID AMPLIFICATION FOR MOLECULAR QUALITATIVE DETECTION OF SARS-COV-2. SPECIMEN TYPE NASAL 12/26/2024 10:49 AM CDT [facility] NASOPHARYNGEAL SWAB / Unknown 12/26/2024 10:18 AM CDT Audra Adams MD MICROBIOLOGY - GENERAL ORDER BRANDON Final Result Performing Organization Address City/[facility]/ZIP Co de Phone Number [facility] [address] [place] [address], * INFLUENZA A & B (12/26/2024 10:18 AM CDT) SPECIMEN TYPE NASOPHARYNX 12/26/2024 10:49 AM CDT [facility] INFLUENZA A NEGATIVE NEGATIVE 12/26/2024 11:12 AM CDT [facility] INFLUENZA B NEGATIVE NEGATIVE 12/26/2024 11:12 AM CDT [facility] NASOPHARYNGEAL SWAB / Unknown 12/26/2024 10:18 AM CDT Audra Adams MD MICROBIOLOGY - GENERAL ORDER BRANDON Final Result Performing Organization Address City/[facility] Co de Phone Number [facility] [address] [place] [address], [place] [phone] * (ABNORMAL) COMPREHENSIVE METABOLIC PANEL (12/26/2024 10:18 AM CDT) GLUCOSE 101(H) 70 - 99 MG/DL 12/26/2024 11:13 AM CDT [facility] BUN 8 7 - 18 MG/DL 12/26/2024 11:13 AM CDT [facility] CREATININE S/P/B 1.00 0.55 - 1.02 MG/DL 12/26/2024 11:13 AM CDT [facility] SODIUM S/P/B 139 136 - 145 MMOL/L 12/26/2024 11:13 AM T [facility] POTASSIUM S/P/B 3.2(L) 3.5 - 5.1 MMOL/L 12/26/2024 11:13 AM [facility] CHLORIDE S/P/B 103 100 - 108 MMOL/L 12/26/2024 11:13 AM [facility] CO2 25.2 21 - 32 MMOL/L 12/26/2024 11:13 AM [facility] CALCIUM S/P/B 9.1 8.5 - 10.1 MG/DL 12/26/2024 11:13 AM [facility] BILIRUBIN TOTAL S/P/B 0.9 0.2 - 1.2 MG/DL 12/26/2024 11:13 AM [facility] Comment: THIS ASSAY IS NOT RECOMMENDED FOR PATIENTS UNDERGOING TREATMENT WITH ELTROMBOPAG DUE TO THE POTENTIAL FOR FALSELY ELEVATED RESULTS. TOTAL PROTEIN S/P/B 8.0 6.4 - 8.2 G/DL 12/26/2024 11:13 AM [facility] ALBUMIN S/P/B 3.8 3.4 - 5.0 G/DL 12/26/2024 11:13 AM [facility] AST 14(L) 15 - 37 U/L 12/26/2024 11:13 AM [facility] ALT 26 14 - 55 U/L 12/26/2024 11:13 AM [facility] ALKALINE PHOSPHATASE S/P/B 137(H) 50 - 136 U/L 12/26/2024 11:13 AM [facility] ANION GAP 10.8 5 - 15 MMOL/L 12/26/2024 11:13 AM [facility] BUN CREATININE RATIO 8.0 6 - 26 12/26/2024 11:13 AM CDT [facility] A/G RATIO 0.9(L) 1.0 - 2.0 RATIO 12/26/2024 11:13 AM CDT [facility] GFR ESTIMATE 75(L) >90 ML/MIN/1.7 3 M2 12/26/2024 11:13 AM CDT [facility] Comment: NOTE: eGFR is not calculated for patients <18 years of age. This is an estimated GFR calculation using the new CKD EPI creatinine equation without race and so does not require a correction factor for race. This estimated GFR should not be used for calculating drug doses. 12/26/2024 10:1 8 AM CDT Audra Adams MD LABORATORY Final Result Performing Organization Address City/[facility]/ZIP Co de Phone Number [facility] [address] [place] [address], * CHORIONIC GONADOTROPIN HCG QL (12/26/2024 10:18 AM CDT) Pathologist [facility] PREG SCREEN-SERUM NEGATIVE NEGATIVE 12/26/2024 11:06 AM CDT [facility] 12/26/2024 10:1 8 AM CDT Audra Adams MD LABORATORY Final Result [facility] [address] [place] [id number], [place] [phone] * (ABNORMAL) CBC W/DIFF AUTOMATED (12/26/2024 10:18 AM CDT) Pathologist [facility] WBC 13.01(H) 4.50 - 11.00 x10'3/uL 12/26/2024 10:56 AM CDT [facility] RBC 5.18 4.20 - 5.40 x10'6/uL 12/26/2024 10:56 AM CDT [facility] HGB 15.9 12.0 - 16.0 G/DL 12/26/2024 10:56 AM CDT [facility] HCT 45.5 38.0 - 48.0 % 12/26/2024 10:56 AM CDT [facility] MCV 87.8 81.0 - 99.0 FL 12/26/2024 10:56 AM CDT [facility] MCH 30.7 27.0 - 31.0 PG 12/26/2024 10:56 AM CDT [facility] MCHC 34.9 32.0 - 36.0 G/DL 12/26/2024 10:56 AM CDT [facility] RDW 12.3 11.5 - 14.5 % 12/26/2024 10:56 AM T [facility] PLT 345 130 - 400 x10'3/uL 12/26/2024 10:56 AM T [facility] MPV 10.4 9.3 - 12.2 FL 12/26/2024 10:56 AM T [facility] CBC COMMENT AUTOMATED RBC MORPHOLOGY AND PLATELET EVALUATION NORMAL 12/26/2024 10:56 AM CDT [facility] NEUTROPHILS % 73.4 % 12/26/2024 10:56 AM CDT [facility] LYMPHOCYTES % 17.5 % 12/26/2024 10:56 AM CDT [facility] MONOCYTES % 5.7 % 12/26/2024 10:56 AM CDT [facility] EOSINOPHILS 2.5 % 12/26/2024 10:56 AM CDT [facility] BASOPHILS 0.5 % 12/26/2024 10:56 AM CDT [facility] IMMATURE GRANS % 0.4 % 12/27/19 10:56 AM CDT [facility] NRBC % 0.0 % 12/26/2024 10:56 AM CDT [facility] ABS. NEUTROPHILS TOTAL 9.56(H) 1.80 - 7.70 x10'3/uL 12/26/2024 10:56 AM CDT [facility] ABS. LYMPHOCYTES 2.28 1.00 - 4.80 x10'3/uL 12/26/2024 10:56 AM CDT [facility] ABS. MONOCYTES 0.74 0.24 - 0.86 x10'3/uL 12/26/2024 10:56 AM CDT [facility] ABS. EOSINOPHILS 0.32 0.04 - 0.36 x10'3/uL 12/26/2024 10:56 AM CDT [facility] ABS. BASOPHILS 0.06 0.01 - 0.08 x10'3/uL 12/26/2024 10:56 AM CDT [facility] ABS. IMMATURE GRANULOCYTES 0.05 0.00 - 0.49 x10'3/uL 12/26/2024 10:56 AM CDT [facility] ABS. NUCLEATED RBC'S 0.00 0.00 - 0.01 x10'3/uL 12/26/2024 10:56 AM CDT [facility] 12/26/2024 10:1 8 AM CDT us Audra Adams MD LABORATORY Final Result [facility] [address] [place] [address], [place] [phone] from Last 3 Months Insurance [place] [employer] Care Teams Semiconductor Lab Technician Relationship Specialty Start Date End Date Sagrario Etienne MD [address] [place], [place] [id number] PCP - General FAMILY PRACTICE 04/16/24
--- OUTSIDE RECORDS SUMMARY | 2025-02-25 10:58 | XMS_ITS | Clinical Summary ---
Author Organization [facility] Address [address] [place] [address] Care Team Providers Care Trial Management Associate Name Role Phone Unknown, Provider Primary Care Provider Unavaila ble Source Comments [facility],non-owned Affiliates and Associated Physician Practices is amultiple site organization consisting of ambulatory clinics and hospital sitesin [place], [place], [place] and [place]. This disclosure is being madepursuant to the Care Everywhere program and may not contain all information available regarding this patient. Last updated 18.[facility] [employer] [facility] [employer] Allergies No known active allergies Medications * [...] on file Legal Sex Female 6:06 AM PHYSICAL CHEMIST Gender Identity Not on file Sexual Orientation [...] 9:57 AM CDT Height 162.6 cm (5' 4) 01/10/2023 9:57 AM CDT Body Mass Index 31.41 01/10/2023 9:57 AM CDT Plan of Treatment Health Maintenance Due Date Last Done Comments HIV SCREENING 2004 HEPATITIS C SCREENING 11/05/2007 DTAP/TDAP/TD VACCINES (1 - Tdap) 2008 HEPATITIS B VACCINE (1 of 3 - 19+ 3-dose series) 2008 PAP SMEAR 2010 HPV VACCINE (1 - 3-dose SCDM series) 2016 COVID-19 VACCINE ( - 2023-2 5 season) 2024 DEPRESSION SCREENING 07/25/2024 INFLUENZA VACCINE (#1) 2025 ZOSTER VACCINE (1 of 2) 11/10/2039 [...] Group ID:Not on file Type:Medicaid [place] Address: [place] [id number] [facility] Care Teams Trial Management Associate Relationship Specialty Start Date End Date Unknown, Provider PCP - General 02/22/23
[2025-02-25 11:45] LABS: Lithium < 0.2 mmol/L (0.6-1.2)
== END 2025-02-25 10:27 | disposition home or self-care (01) ==
LOC: ANHSURGERY 10:31
PROVIDERS: Anesthesiology; PCP Family Medicine; Visit Provider Obstetrics & Gynecology
DX: Z01.812 Encounter for preprocedural laboratory examination (principal); T56.891A Toxic effect of other metals, accidental (unintentional), initial encounter
CPT/HCPCS: 36415; 80178

== ENCOUNTER 2025-02-26 11:15 | Outpatient (CLI) | payer OTHER, SELFPAY ==
--- OUTSIDE RECORDS SUMMARY | 2025-02-26 11:43 | XMS_ITS | Patient Health Record ---
Author Organization [facility] Address [address] [place] [address] Care Team Providers Care Fagoting Machine Operator Name Role Phone Michelle Roberson Primary Care Provider Allergies No Known Allergies Reason For Referral No Information Medications Medication SIG (Take, Route, Fr equency, Duration) Notes Start Date End Date Status Abilify 10 MG 1 tablet Orally at b edtime; Duration: 30 days 10/21/2022 Not-Taking Abilify 5 MG 1 tablet Orally at b edtime; Duration: 7 days 10/21/2022 Not-Taking CeleXA 10 MG 1 tablet Orally Once a day Unknown Social History Sex Assigned At : Social History Observation Description Sex Assigned At Female Problems Problem Type SNOMED Code ICD Code Onset Dates Problem Status W/U Status Risk Notes Problem Depression (181001881) Depression (F32.9) Active confirmed Problem Mood disorder (82404513) Mood disorder (F39) Active confirmed Problem Substance abuse (2858885981) Substance abuse (F19.10) Active confirmed Problem Anxiety (46286284) Anxiety (F41.9) Active confirmed Problem Bipolar 1 disorder (449799242) Bipolar 1 disorder (F31.9) Active confirmed Problem Wellness examination (Z00.00) Active confirmed Problem Cocaine abuse (F14.10) Active confirmed Problem Depressive disorder (disorder) (81319838) Depression, unspecified depression type (F32.9) Active confirmed Plan Of Treatment No Information Insurance Providers Payer Name Payer Address Payer Phone Subscriber Number Group Number Insured Name Patient Relationship to Insured Coverage Start Date Coverage End Date MEDICAID [address] [place] [phone] [id number] Michelle Medina Self - patient is the insured 3 [facility] [address] [place] [address] [id number] Michelle Medina Self - patient is the insured 3 Medical (General) History Medical History History ICD Code bipolar disorder anxiety Surgical History Surgery Date(Month/Year) appendectomy Cholecystectomy 2012 Tonsillectomy 2010 Hospitalization History Reason Date(Month/Year)
--- OUTSIDE RECORDS SUMMARY | 2025-02-26 11:43 | XMS_ITS | Clinical Summary ---
Author Organization [facility] Address [address] [place] [address] Care Team Providers Care Pipefitter Helper Name Role Phone Unknown, Provider Primary Care Provider Unavaila ble Source Comments [facility],non-owned Affiliates and Associated Physician Practices is amultiple site organization consisting of ambulatory clinics and hospital sitesin [place], [place], [place] and [place]. This disclosure is being madepursuant to the Care Everywhere program and may not contain all information available regarding this patient. Last updated 18.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
--- OUTSIDE RECORDS SUMMARY | 2025-02-26 11:43 | XMS_ITS | Clinical Summary ---
Author Organization [facility] Address [address] [place] [address] Care Team Providers Care Sign Language Interpreter Name Role Phone Sagrario Etienne MD Primary Care Provider [phone] Allergies No known active allergies Medications albuterol [...] CDT - 12/26/2024 1:32 PM CDT Emergency [facility] Emergency Room [address] [place] [address] Audra Adams MD Chest Pain; Shortness Of [...] - 2.0 MMOL/L 12/26/2024 1:18 PM CDT [facility] 12/26/2024 12:4 2 PM CDT Audra Adams MD LABORATORY Final Result Performing Organization Address City/[facility]/ZIP Co de Phone Number [facility] [address] [place] [address], [place] [phone] * BLOOD CULTURE #2 (12/26/2024 11:55 AM CDT) Only the most recent of2 resultswithin the time period is included. SPEC DESCRIPTION BLOOD 12/27/19 12:15 PM CDT [facility] SPECIAL REQUESTS LAC SP 12/27/19 12:15 PM CDT [facility] CULTURE RESULT NO GROWTH 5 DAYS 12/31/2024 7:41 PM CDT [facility] BLOOD SPECIMEN OBTAINED FOR BLOOD CULTURE / Unknown 12/26/2024 11:55 AM CDT 12/26/2024 12:15 PM CDT Audra dAams MD MICROBIOLOGY - GENERAL ORDER BRANDON Final Result Performing Organization Address [facility] Co de Phone Number [facility] [address] [place] [address], [place] [phone] [facility] [address] [place] [address], [place] [phone] * XR CHEST PA OR AP 1V (12/26/2024 11:32 AM CDT) Anatomical Region Laterality Modality Chest Radiographic Deborah ging 12/26/2024 11:3 7 AM CDT Impressions 12/26/2024 11:38 AM CDT IMPRESSION: No radiographic evidence of acute cardiopulmonary disease. Ordered By: AUDRA ADAMS Interpreted By: Romario Benavides, 12/26/2024 11:37 AM Narrative 12/26/2024 11:38 AM CDT [facility] [address] [place] [address] EXAMINATION: XR CHEST PA OR AP 1V INDICATIONS: Fever, cough COMPARISON: 03/01/2024 FINDINGS: Single frontal radiograph of the chest limited by portable technique demonstrates normal lung expansion without consolidation, effusion, or pneumothorax. No bulky hilar adenopathy. The cardiomediastinal contours are maintained. Heart size is normal. No acute or aggressive osseous abnormality. Procedure Note Romario Benavides MD - 12/26/2024 [facility] [address] [place] [address] EXAMINATION: XR CHEST PA OR AP 1V [...] RNA NEGATIVE NEGATIVE 12/26/2024 11:08 AM CDT [facility] Comment: NEGATIVE RESULTS DO NOT [...] SPECIMEN TYPE NASAL 12/26/2024 10:49 AM CDT [facility] NASOPHARYNGEAL SWAB / Unknown 12/26/2024 10:18 AM CDT Audra Adams MD MICROBIOLOGY - GENERAL ORDER BRANDON Final Result Performing Organization Address City/[facility]/ZIP Co de Phone Number [facility] [address] [place] [address], * INFLUENZA A & B (12/26/2024 10:18 AM CDT) SPECIMEN TYPE NASOPHARYNX 12/26/2024 10:49 AM CDT [facility] INFLUENZA A NEGATIVE NEGATIVE 12/26/2024 11:12 AM CDT [facility] INFLUENZA B NEGATIVE NEGATIVE 12/26/2024 11:12 AM CDT [facility] NASOPHARYNGEAL SWAB / Unknown 12/26/2024 10:18 AM CDT Audra Adams MD MICROBIOLOGY - GENERAL ORDER BRANDON Final Result Performing Organization Address City/[facility] Co de Phone Number [facility] [address] [place] [address], [place] [phone] * (ABNORMAL) COMPREHENSIVE METABOLIC PANEL (12/26/2024 10:18 AM CDT) GLUCOSE 101(H) 70 - 99 MG/DL 12/26/2024 11:13 AM CDT [facility] BUN 8 7 - 18 MG/DL 12/26/2024 11:13 AM CDT [facility] CREATININE S/P/B 1.00 0.55 - 1.02 MG/DL 12/26/2024 11:13 AM CDT [facility] SODIUM S/P/B 139 136 - 145 MMOL/L 12/26/2024 11:13 AM T [facility] POTASSIUM S/P/B 3.2(L) 3.5 - 5.1 MMOL/L 12/26/2024 11:13 AM [facility] CHLORIDE S/P/B 103 100 - 108 MMOL/L 12/26/2024 11:13 AM [facility] CO2 25.2 21 - 32 MMOL/L 12/26/2024 11:13 AM [facility] CALCIUM S/P/B 9.1 8.5 - 10.1 MG/DL 12/26/2024 11:13 AM [facility] BILIRUBIN TOTAL S/P/B 0.9 0.2 - 1.2 MG/DL 12/26/2024 11:13 AM [facility] Comment: THIS ASSAY IS NOT RECOMMENDED FOR PATIENTS UNDERGOING TREATMENT WITH ELTROMBOPAG DUE TO THE POTENTIAL FOR FALSELY ELEVATED RESULTS. TOTAL PROTEIN S/P/B 8.0 6.4 - 8.2 G/DL 12/26/2024 11:13 AM [facility] ALBUMIN S/P/B 3.8 3.4 - 5.0 G/DL 12/26/2024 11:13 AM [facility] AST 14(L) 15 - 37 U/L 12/26/2024 11:13 AM [facility] ALT 26 14 - 55 U/L 12/26/2024 11:13 AM [facility] ALKALINE PHOSPHATASE S/P/B 137(H) 50 - 136 U/L 12/26/2024 11:13 AM [facility] ANION GAP 10.8 5 - 15 MMOL/L 12/26/2024 11:13 AM [facility] BUN CREATININE RATIO 8.0 6 - 26 12/26/2024 11:13 AM CDT [facility] A/G RATIO 0.9(L) 1.0 - 2.0 RATIO 12/26/2024 11:13 AM CDT [facility] GFR ESTIMATE 75(L) >90 ML/MIN/1.7 3 M2 12/26/2024 11:13 AM CDT [facility] Comment: NOTE: eGFR is not [...] MD LABORATORY Final Result Performing Organization Address City/[facility]/ZIP Co de Phone Number [facility] [address] [place] [address], * CHORIONIC GONADOTROPIN HCG QL (12/26/2024 10:18 AM CDT) Pathologist [facility] PREG SCREEN-SERUM NEGATIVE NEGATIVE 12/26/2024 11:06 AM CDT [facility] 12/26/2024 10:1 8 AM CDT Audra Adams MD LABORATORY Final Result [facility] [address] [place] [address], [place] [phone] * (ABNORMAL) CBC W/DIFF AUTOMATED (12/26/2024 10:18 AM CDT) Pathologist [facility] WBC 13.01(H) 4.50 - 11.00 x10'3/uL 12/26/2024 10:56 AM CDT [facility] RBC 5.18 4.20 - 5.40 x10'6/uL 12/26/2024 10:56 AM CDT [facility] HGB 15.9 12.0 - 16.0 G/DL 12/26/2024 10:56 AM CDT [facility] HCT 45.5 38.0 - 48.0 % 12/26/2024 10:56 AM CDT [facility] MCV 87.8 81.0 - 99.0 FL 12/26/2024 10:56 AM CDT [facility] MCH 30.7 27.0 - 31.0 PG 12/26/2024 10:56 AM CDT [facility] MCHC 34.9 32.0 - 36.0 G/DL 12/26/2024 10:56 AM CDT [facility] RDW 12.3 11.5 - 14.5 % 12/26/2024 10:56 AM T [facility] PLT 345 130 - 400 x10'3/uL 12/26/2024 10:56 AM T [facility] MPV 10.4 9.3 - 12.2 FL 12/26/2024 10:56 AM T [facility] CBC COMMENT AUTOMATED RBC MORPHOLOGY AND PLATELET EVALUATION NORMAL 12/26/2024 10:56 AM CDT [facility] NEUTROPHILS % 73.4 % 12/26/2024 10:56 AM CDT [facility] LYMPHOCYTES % 17.5 % 12/26/2024 10:56 AM CDT [facility] MONOCYTES % 5.7 % 12/26/2024 10:56 AM CDT [facility] EOSINOPHILS 2.5 % 12/26/2024 10:56 AM CDT [facility] BASOPHILS 0.5 % 12/26/2024 10:56 AM CDT [facility] IMMATURE GRANS % 0.4 % 12/27/19 10:56 AM CDT [facility] NRBC % 0.0 % 12/26/2024 10:56 AM CDT [facility] ABS. NEUTROPHILS TOTAL 9.56(H) 1.80 - 7.70 x10'3/uL 12/26/2024 10:56 AM CDT [facility] ABS. LYMPHOCYTES 2.28 1.00 - 4.80 x10'3/uL 12/26/2024 10:56 AM CDT [facility] ABS. MONOCYTES 0.74 0.24 - 0.86 x10'3/uL 12/26/2024 10:56 AM CDT [facility] ABS. EOSINOPHILS 0.32 0.04 - 0.36 x10'3/uL 12/26/2024 10:56 AM CDT [facility] ABS. BASOPHILS 0.06 0.01 - 0.08 x10'3/uL 12/26/2024 10:56 AM CDT [facility] ABS. IMMATURE GRANULOCYTES 0.05 0.00 - 0.49 x10'3/uL 12/26/2024 10:56 AM CDT [facility] ABS. NUCLEATED RBC'S 0.00 0.00 - 0.01 x10'3/uL 12/26/2024 10:56 AM CDT [facility] 12/26/2024 10:1 8 AM CDT us Audra Adams MD LABORATORY Final Result [facility] [address] [place] [address], [place] [phone] from Last 3 Months Insurance [place] [employer] Care Teams Sign Language Interpreter Relationship Specialty Start Date End Date Sagrario Etienne MD [address] [place], [place] [id number] PCP - General FAMILY PRACTICE 04/16/24
[2025-02-26 12:43] LABS: Alanine Aminotransferase 23 U/L (6-35); Albumin Level 4.7 g/dL (3.5-5.1); Alkaline Phosphatase 90 U/L (38-126); Anion Gap 10 mmol/L (4-12); Aspartate Amino Transferase 26 U/L (14-36); Bilirubin,Total 0.4 mg/dL (0.2-1.3); Blood Urea Nitrogen 15 mg/dL (7-17); Calcium 9.5 mg/dL (8.4-10.2); Carbon Dioxide 24 mmol/L (22-30); Chloride 103 mmol/L (98-107); Estimated Glomerular Filt Rate > 60; Glucose 69 mg/dL (65-110); Potassium 4.2 mmol/L (3.4-5.0); Sodium 137 mmol/L (137-145); Total Protein 8.2 g/dL (6.3-8.2)
[2025-02-26 12:58] LABS: Beta HCG Quantitative < 2.39 mIU/ML
== END 2025-02-26 11:16 | disposition home or self-care (01) ==
LOC: ANHLAB 11:17
PROVIDERS: PCP Family Medicine; Visit Provider Family Medicine
DX: R74.8 Abnormal levels of other serum enzymes (principal); F31.9 Bipolar disorder, unspecified; Z79.899 Other long term (current) drug therapy
CPT/HCPCS: 36415; 80053; 84702

== ENCOUNTER 2025-03-04 00:28 | Day surgery (SDC) | payer OTHER, SELFPAY ==
--- NOTE | 2025-02-20 14:04 | PC.NURSE ---
Report to the Outpatient Waiting Room, entrance under the green pavilion located off [facility], at 0600 on 03-04-2025. Planned Procedure Time: 0730.? Time changes happen often and if your time is changed the preop area will call you the afternoon before. - You and your visitor will be asked to self-screen and do not enter if you have any COVID symptoms. Please call surgeon if you need to reschedule. - A mask is optional within the hospital at this time. Patients may have clear liquids (water, carbonated beverages, clear teas, apple juice) until 3 hours prior to surgery with a maximum of 20 ounces. 0430 - No food from midnight until time of surgery and no smoking, or chewing tobacco (or any form of nicotine). No chewing gum, candy or mints. - Infants may have breast milk until 4 hours before surgery, formula 6 hours prior to surgery. - Children will be allowed to drink immediately following surgery.? If applicable, please bring a bottle or sippy cup to assist with drinking. Juice, water, soda, and popsicles are readily available.? For infants on formula, please bring formula the day of surgery.? Pacifiers are allowed. Take only the following medications with a SIP of water on the morning of surgery: (takes meds at night) None DO NOT STOP ANY OF YOUR OTHER PRESCRIPTION MEDICATIONS PRIOR TO SURGERY EXCEPT THE FOLLOWING Hold all vitamins and supplements for 3 days per anesthesiologist. Medications to discontinue per physician: N/A Please no make-up, nail south african, hairspray, perfume, deodorant, or body powder the day of surgery.? No jewelry (including any body piercings) or valuables the day of surgery, leave them at home.? Please take a shower or bath the night before, or the morning of, surgery with an antibacterial soap.? Wear comfortable, loose fitting clothing.? Children are encouraged to wear pajamas. - Jewelry must be removed prior to entering the operating room.? Rings and piercings that are not removed may be cut off. - The hospital will not accept responsibility for valuables.? - Please leave all valuables, including medications, at home the day of surgery. If you are going home after surgery, a licensed bobtail driver must drive you home.? - NO public transportation without another adult if you receive anesthesia. - We recommend that an adult stay with you for 24 hours following discharge. - We also recommend that you do not drive, make important decision, drink alcoholic beverages, or take any drugs that were not prescribed by your health care provider for at least 24 hours after your discharge time. For Pediatric surgeries, we recommend two adults accompany the child home. Follow any additional instructions given to you from your surgeon. Telephone instructions given to Michelle Medina and asked if any additional questions and then verbalized understanding. Patient advised to call surgeon office or pre surgery nurse liaison [phone] if any additional questions.
[2025-03-04] VITALS (10 sets, daily range): BP systolic 91–152; BP diastolic 50–97; PULSE 54–81; RESP 12–18; TEMP 36.2; O2SAT 98–100
--- OUTSIDE RECORDS SUMMARY | 2025-03-04 00:31 | XMS_ITS | Clinical Summary ---
Author Organization [facility] Address [address] [place] [address] Care Team Providers Care Technology Architect Name Role Phone Unknown, Provider Primary Care Provider Unavaila ble Source Comments [facility],non-owned Affiliates and Associated Physician Practices is amultiple site organization consisting of ambulatory clinics and hospital sitesin [place], [place], [place] and [place]. This disclosure is being madepursuant to the Care Everywhere program and may not contain all information available regarding this patient. Last updated 18.[facility] Allergies No known active allergies Medications * [...] on file Legal Sex Female 6:06 AM RN COMMUNITY Gender Identity Not on file Sexual Orientation [...] Group ID:Not on file Type:Medicaid [place] Address: [place] [id number] [facility] Care Teams Technology Architect Relationship Specialty Start Date End Date Unknown, Provider PCP - General 02/22/23
--- OUTSIDE RECORDS SUMMARY | 2025-03-04 00:32 | XMS_ITS | Patient Health Record ---
Author Organization [facility] Address [address] [place] [address] Care Team Providers Care Tub Rider Name Role Phone Michelle Roberson Primary Care [...] Status W/U Status Risk Notes Problem Depression (382929500) Depression (F32.9) Active confirmed Problem Mood disorder (08483440) Mood disorder (F39) Active confirmed Problem Substance abuse (2663659882) Substance abuse (F19.10) Active confirmed Problem Anxiety (05825288) Anxiety (F41.9) Active confirmed Problem Bipolar 1 disorder (238431585) Bipolar 1 disorder (F31.9) Active confirmed Problem Wellness examination (Z00.00) Active confirmed Problem Cocaine abuse (F14.10) Active confirmed Problem Depressive disorder (disorder) (70973627) Depression, unspecified depression type (F32.9) Active confirmed Plan Of Treatment No Information Insurance Providers Payer Name Payer Address Payer Phone Subscriber Number Group Number Insured Name Patient Relationship to Insured Coverage Start Date Coverage End Date MEDICAID [address] [place] [address] [id number] Michelle Medina Self - patient is the insured 3 MEDICAID [facility] [address] [place] [address] [id number] Michelle Medina Self - patient is the insured 3 Medical (General) History Medical History History ICD Code bipolar disorder anxiety Surgical History Surgery Date(Month/Year) appendectomy Cholecystectomy 2012 Tonsillectomy 2010 Hospitalization History Reason Date(Month/Year)
--- OUTSIDE RECORDS SUMMARY | 2025-03-04 00:32 | XMS_ITS | Clinical Summary ---
Author Organization [facility] Address [address] [place] [address] Care Team Providers Care Cash Application Representative Name Role Phone Sagrario Etienne MD Primary Care Provider [phone] Allergies No known active allergies Medications albuterol sulfate HFA 108 (90 Base) MCG/ACT inhaler Inhale 2 puffs into the lungs every 6 (six) hours as needed. 8 g 03/01/20 24 Active metroNIDAZOLE (FLAGYL) 500 MG tablet Take 1 tablet (500 mg total) by mouth 2 (two) times a day. 14 tablet 03/07/20 24 Active albuterol sulfate HFA 108 (90 Base) MCG/ACT inhaler Inhale 2 puffs into the lungs every 4 (four) hours as needed for Wheezing or Shortness of breath. Use with spacer. 18 g 12/27/19 25 Active cefdinir (OMNICEF) 300 MG Cap capsule Take 1 capsule (300 mg total) by mouth 2 (two) times daily for 7 days. 14 capsule 03/02/20 25 025 Active phenazopyridine (PYRIDIUM) 100 MG tablet Take 1 tablet (100 mg total) by mouth 3 (three) times daily as needed for Pain. 9 tablet 03/02/20 25 025 Active HYDROcodone-aceta minophen (NORCO) 5-325 MG tabletIndications :Acute Pain < 3 Day Supply Take 1 tablet by mouth every 6 (six) hours as needed. Indications: Acute Pain < 3 Day Supply 8 tablet 03/02/20 25 Active naloxone (NARCAN) 4 MG/0.1ML nasal spray 1 spray by Nasal route as needed for Opioid reversal. may repeat every 2 to 3 minutes in alternating nostrils until medical assistance becomes available 1 each 03/02/20 25 026 Active pantoprazole EC (PROTONIX) 40 MG tablet Take 1 tablet (40 mg total) by mouth daily. 30 tablet 03/02/20 25 Active ondansetron (ZOFRAN-ODT) 4 MG disintegrating tablet Take 1 tablet (4 mg total) by mouth every 8 (eight) hours as needed. 10 tablet 03/02/20 25 Active HYDROcodone-aceta minophen (NORCO) 5-325 MG tabletIndications :Acute Pain < 3 Day Supply Take 1 tablet by mouth every 6 (six) hours as needed. Indications: Acute Pain < 3 Day Supply Do not exceed 4g of acetaminophen in a day. 10 tablet 03/07/20 24 025 Discontin ued(Thera py completed ) ondansetron (ZOFRAN-ODT) 4 MG disintegrating tablet Take 1 tablet (4 mg total) by mouth every 8 (eight) hours as needed. 10 tablet 12/27/19 25 025 Discontin ued(Thera py completed ) Active Problems Problem Noted Date Diagnosed Date Anxiety 03/02/2025 Bipolar I disorder ([facility]) 03/02/2025 Cocaine abuse 03/02/2025 Depression, unspecified depression type 03/02/20 25 Episodic mood disorder 03/02/2025 Substance abuse 03/02/2025 Encounters Date Type Department Care Team Description 03/02/2025 2:03 PM CDT - 03/02/2025 6:[address] [facility] Emergency Room [address] [place] [id number] Audra Adams MD Abdominal Pain; Rectal Problem Discharge Disposition: Home or Self Care (Routine Discharge) 03/02/2025 Travel 12/26/2024 10:19 AM CDT - 12/26/2024 1:[address] [facility] Emergency Room [address] [place] [id number] Audra Adams MD Chest Pain; Shortness Of [...] Sign Reading Time Taken Comments Blood Pressure 107/70 03/02/2025 2:10 PM CDT Pulse 85 03/02/2025 2:10 PM CDT Temperature 36.7 C (98 F) 03/02/2025 5:00 PM CDT Respiratory Rate 16 03/02/2025 2:10 PM CDT Oxygen Saturation 98% 03/02/2025 2:10 PM CDT Inhaled Oxygen Concentration - - Weight 80.3 kg (177 lb) 03/02/2025 2:10 PM CDT Height 160 cm (5' 3) 03/02/2025 2:10 PM CDT Body Mass Index 31.35 03/02/2025 2:10 PM CDT Plan of Treatment Health Maintenance Due [...] Procedure Name Priority Date/Time Associated Diagnosis Comments CT ABD+PEL W CON STAT 03/02/2025 3:39 PM CDT ECG 12-LEAD STAT 03/02/2025 3:03 PM CDT Procedure Note - 03/02/2025 3:03 PM CDTThis note is in progress. [facility] Test Date: 2025-03-02 Pat Name: MICHELLE MEDINA Department: 80 Room: EXAM 101 Gender: Female Manager Bilingual: : 1990 Requested By: AUDRA ADAMS Order Number: [id number] Reading MD: Measurements Intervals Eugene Rate: 62 P: 7 NC: 125 QRS: 47 QRSD: 86 T: 38 QT: 369 QTc: 376 Interpretive Statements SINUS RHYTHM WITH SINUS ARRHYTHMIA CHORIONIC GONADOTROPIN HCG QL STAT 03/02/2025 2:50 PM CDT LIPASE STAT 03/02/2025 2:50 PM CDT MAGNESIUM STAT 03/02/2025 2:50 PM CDT COMPREHENSIVE METABOLIC PANEL STAT 03/02/2025 2:50 PM CDT CBC W/DIFF AUTOMATED STAT 03/02/2025 2:50 PM CDT HC URINALYSIS AUTO W/O MICRO STAT 03/02/2025 2:25 PM CDT LACTIC ACID STAT 12/26/2024 12:42 PM CDT CULTURE, BACTERIA, BLOOD STAT 12/26/2024 11:55 AM CDT CULTURE, BACTERIA, BLOOD STAT 12/26/2024 11:55 AM CDT XR CHEST PA OR AP 1V STAT 12/26/2024 11:32 AM CDT INFLUENZA A & B STAT 12/26/2024 10:18 AM CDT CORONAVIRUS (COVID 19) STAT 12/26/2024 10:18 AM CDT CHORIONIC GONADOTROPIN HCG QL STAT 12/26/2024 10:18 AM CDT LACTIC ACID STAT 12/26/2024 10:18 AM CDT COMPREHENSIVE METABOLIC PANEL STAT 12/26/2024 10:18 AM CDT CBC W/DIFF AUTOMATED STAT 12/26/2024 10:18 AM CDT from Last 3 Months Results * CT ABD+PEL W CON (03/02/2025 3:39 PM CDT) Anatomical Region Laterality Modality Abdomen Computed Tomogra phy 03/02/2025 4:11 PM CDT Impressions 03/02/2025 4:17 PM CDT Impression: 1. No acute other significant abdominal pelvic findings seen to provide a potential explanation for the patient's symptoms. 2. Please refer to the report body for details regarding nonacute, incidental and chronic stable findings. Referred By: Interpreted By: Eunice Graves MD, 03/02/2025 4:11 PM Narrative 03/02/2025 4:17 PM CDT [id number] [place] [address] Exam: CT Abdomen and Pelvis with contrast Exam Date/Time: 03/02/2025 3:34 PM Indication: 34 female. Abdominal, right flank pain. Nausea, vomiting and diarrhea. Black stools yesterday. History of appendectomy and cholecystectomy Comparison: CT abdomen pelvis 04/16/2024 Technique: Computed tomography of the abdomen and pelvis performed with intravenous administration of 100 mL Isovue-370. A dose lowering technique was used for this procedure, which may include, but is not limited to, dose reduction technique, automated exposure control, the use of iterative reconstruction, and ALARA (As Low As Reasonably Achievable) / Image Gently techniques. Findings: LOWER CHEST Normal cardiac size. No pericardial or pleural effusion. Clear lung bases. UPPER ABDOMEN Liver and bile ducts: Normal size contour and enhancement of the liver. No focal finding. Hepatic and portal venous systems are patent. No intra or extrahepatic biliary tree dilatation.. Gallbladder: Cholecystectomy Pancreas: Normal. Spleen: Normal. RETROPERITONEUM Adrenals: Normal. Kidneys: Normal size contour and enhancement. No focal lesion, collecting system obstruction or perinephric stranding Lymph nodes: No lymphadenopathy in the abdomen or pelvis. BOWEL AND PERITONEUM Bowel: Normal in caliber and wall thickness. Few small bowel loops are fluid-filled but with are not distended or otherwise remarkable. Prior appendectomy. The right and transverse colon are unremarkable. Mural prominence of the descending and sigmoid colon probably related to nondistention. No findings of colitis. Free air or fluid: Trace pelvic free fluid in the cul-de-sac, a nonspecific statistically most likely physiologic. No free air. VASCULATURE Unremarkable abdominal aorta. No atherosclerosis aneurysm. Mesenteric and visceral branches are patent. PELVIS PICC line intrauterine IUD no longer present. Nonenlarged anteverted uterus. Adnexa are within normal limits Incompletely distended unremarkable thin-walled urinary bladder BONES/SOFT TISSUES No concerning musculoskeletal finding. Procedure Note Eunice Graves MD - 03/02/[address] [address] Exam: CT Abdomen and Pelvis with contrast Exam Date/Time: 03/02/2025 3:34 PM Indication: 34 female. Abdominal, right flank pain. Nausea, vomiting anddiarrhea. Black stools yesterday. History of appendectomy andcholecystectomy Comparison: CT abdomen pelvis 04/16/2024 Technique: Computed tomography of the abdomen and pelvis performed withintravenous administration of 100 mL Isovue-370. A dose lowering techniquewas used for this procedure, which may include, but is not limited to,dose reduction technique, automated exposure control, the use of iterativereconstruction, and ALARA (As Low As Reasonably Achievable) / Image Gentlytechniques. Findings: LOWER CHEST Normal cardiac size. No pericardial or pleural effusion. Clear lungbases. UPPER ABDOMEN Liver and bile ducts: Normal size contour and enhancement of the liver.No focal finding. Hepatic and portal venous systems are patent. No intraor extrahepatic biliary tree dilatation.. Gallbladder: Cholecystectomy Pancreas: Normal. Spleen: Normal. RETROPERITONEUM Adrenals: Normal. Kidneys: Normal size contour and enhancement. No focal lesion, collectingsystem obstruction or perinephric stranding Lymph nodes: No lymphadenopathy in the abdomen or pelvis. BOWEL AND PERITONEUM Bowel: Normal in caliber and wall thickness. Few small bowel loops arefluid- filled but with are not distended or otherwise remarkable. Priorappendectomy. The right and transverse colon are unremarkable. Muralprominence of the descending and sigmoid colon probably related tonondistention. No findings of colitis. Free air or fluid: Trace pelvic free fluid in the cul-de-sac, anonspecific statistically most likely physiologic. No free air. VASCULATURE Unremarkable abdominal aorta. No atherosclerosis aneurysm. Mesentericand visceral branches are patent. PELVIS PICC line intrauterine IUD no longer present. Nonenlarged anteverteduterus. Adnexa are within normal limits Incompletely distended unremarkable thin-walled urinary bladder BONES/SOFT TISSUES No concerning musculoskeletal finding. Impression: 1. No acute other significant abdominal pelvic findings seen to provide apotential explanation for the patient's symptoms. 2. Please refer to the report body for details regarding nonacute,incidental and chronic stable findings. Referred By: Interpreted By: Eunice Graves MD, 03/02/2025 4:11 PM Audra Adams MD CT Final Result * (ABNORMAL) COMPREHENSIVE METABOLIC PANEL (03/02/2025 2:50 PM CDT) Only the most recent of2 resultswithin the time period is included. GLUCOSE 97 70 - 99 MG/DL 03/02/2025 3:28 PM CDT [facility] BUN 12 7 - 18 MG/DL 03/02/2025 3:28 PM [facility] CREATININE S/P/B 0.90 0.55 - 1.02 MG/DL 03/02/2025 3:28 PM [facility] SODIUM S/P/B 136 136 - 145 MMOL/L 03/02/2025 3:28 PM [facility] POTASSIUM S/P/B 3.3(L) 3.5 - 5.1 MMOL/L 03/02/2025 3:28 PM [facility] CHLORIDE S/P/B 105 100 - 108 MMOL/L 03/02/2025 3:28 PM [facility] CO2 21.5 21 - 32 MMOL/L 03/02/2025 3:28 PM [facility] CALCIUM S/P/B 9.0 8.5 - 10.1 MG/DL 03/02/2025 3:28 PM [facility] BILIRUBIN TOTAL S/P/B 0.8 0.2 - 1.2 MG/DL 03/02/2025 3:28 PM [facility] Comment: THIS ASSAY IS NOT RECOMMENDED FOR PATIENTS UNDERGOING TREATMENT WITH ELTROMBOPAG DUE TO THE POTENTIAL FOR FALSELY ELEVATED RESULTS. TOTAL PROTEIN S/P/B 7.3 6.4 - 8.2 G/DL 03/02/2025 3:28 PM [facility] ALBUMIN S/P/B 3.8 3.4 - 5.0 G/DL 03/02/2025 3:28 PM [facility] AST 29 15 - 37 U/L 03/02/2025 3:28 PM [facility] ALT 45 14 - 55 U/L 03/02/2025 3:28 PM [facility] ALKALINE PHOSPHATASE S/P/B 103 50 - 136 U/L 03/02/2025 3:28 PM CDT [facility] ANION GAP 9.5 5 - 15 MMOL/L 03/02/2025 3:28 PM CDT [facility] BUN CREATININE RATIO 13.3 6 - 26 03/02/2025 3:28 PM CDT [facility] A/G RATIO 1.1 1.0 - 2.0 RATIO 03/02/2025 3:28 PM CDT [facility] GFR ESTIMATE 85(L) >90 ML/MIN/1.7 3 M2 03/02/2025 3:28 PM CDT [facility] Comment: NOTE: eGFR is not calculated for patients <18 years of age. This is an estimated GFR calculation using the new CKD EPI creatinine equation without race and so does not require a correction factor for race. This estimated GFR should not be used for calculating drug doses. 03/02/2025 2:50 PM CDT Audra Adams MD LABORATORY Final Result Performing Organization Address City/[facility]/ZIP Co de Phone Number [facility] [address] [place] [address], [place] [phone] * CHORIONIC GONADOTROPIN HCG QL (03/02/2025 2:50 PM CDT) Only the most recent of2 resultswithin the time period is included. PREG SCREEN-SERUM NEGATIVE NEGATIVE 03/02/2025 3:13 PM CDT [facility] 03/02/2025 2:50 PM CDT Audra Adams MD LABORATORY Final Result Performing Organization Address City/[facility]/ZIP Co de Phone Number [facility] [address] [place] [address], [place] [phone] * (ABNORMAL) CBC W/DIFF AUTOMATED (03/02/2025 2:50 PM CDT) Only the most recent of2 resultswithin the time period is included. WBC 8.33 4.50 - 11.00 x10'3/uL 03/02/2025 3:00 PM T [facility] RBC 4.85 4.20 - 5.40 x10'6/uL 03/02/2025 3:00 PM CDT [facility] HGB 14.7 12.0 - 16.0 G/DL 03/02/2025 3:00 PM T [facility] HCT 41.2 38.0 - 48.0 % 03/02/2025 3:00 PM T [facility] MCV 84.9 81.0 - 99.0 FL 03/02/2025 3:00 PM CDT [facility] MCH 30.3 27.0 - 31.0 PG 03/02/2025 3:00 PM T [facility] MCHC 35.7 32.0 - 36.0 G/DL 03/02/2025 3:00 PM T [facility] RDW 12.3 11.5 - 14.5 % 03/02/2025 3:00 PM T [facility] PLT 291 130 - 400 x10'3/uL 03/02/2025 3:00 PM T [facility] MPV 10.5 9.3 - 12.2 FL 03/02/2025 3:00 PM T [facility] CBC COMMENT AUTOMATED RBC MORPHOLOGY AND PLATELET EVALUATION NORMAL 03/02/2025 3:00 PM T [facility] NEUTROPHILS % 70.0 % 03/02/2025 3:00 PM CDT [facility] LYMPHOCYTES % 21.1 % 03/02/2025 3:00 PM T [facility] MONOCYTES % 7.7 % 03/02/2025 3:00 PM CDT [facility] EOSINOPHILS 0.4 % 03/02/2025 3:00 PM CDT [facility] BASOPHILS 0.4 % 03/02/2025 3:00 PM CDT [facility] IMMATURE GRANS % 0.4 % 03/02/20 3:00 PM CDT [facility] NRBC % 0.0 % 03/02/2025 3:00 PM CDT [facility] ABS. NEUTROPHILS TOTAL 5.84 1.80 - 7.70 x10'3/uL 03/02/2025 3:00 PM CDT [facility] ABS. LYMPHOCYTES 1.76 1.00 - 4.80 x10'3/uL 03/02/2025 3:00 PM CDT [facility] ABS. MONOCYTES 0.64 0.24 - 0.86 x10'3/uL 03/02/2025 3:00 PM CDT [facility] ABS. EOSINOPHILS 0.03(L) 0.04 - 0.36 x10'3/uL 03/02/2025 3:00 PM CDT [facility] ABS. BASOPHILS 0.03 0.01 - 0.08 x10'3/uL 03/02/2025 3:00 PM CDT [facility] ABS. IMMATURE GRANULOCYTES 0.03 0.00 - 0.49 x10'3/uL 03/02/2025 3:00 PM CDT [facility] ABS. NUCLEATED RBC'S 0.00 0.00 - 0.01 x10'3/uL 03/02/2025 3:00 PM T [facility] 03/02/2025 2:50 PM CDT Audra Adams MD LABORATORY Final Result Performing Organization Address [facility]/ZIP Co de Phone Number [facility] [address] [place] [address], [place] [phone] * MAGNESIUM (03/02/2025 2:50 PM CDT) MAGNESIUM 2.0 1.8 - 2.4 MG/DL 03/02/2025 3:28 PM CDT [facility] 03/02/2025 2:50 PM CDT Audra Adams MD LABORATORY Final Result Performing Organization Address [facility] Co de Phone Number [facility] [address] [place] [address], [place] [phone] * LIPASE (03/02/2025 2:50 PM CDT) LIPASE 26 16 - 77 UNITS/L 03/02/2025 3:28 PM CDT [facility] 03/02/2025 2:50 PM CDT us Audra Adams MD LABORATORY Final Result Performing Organization Address [facility] Co de Phone Number [facility] [address] [place] [address], [place] [phone] * (ABNORMAL) URINALYSIS (03/02/2025 2:25 PM CDT) COLOR (U) YELLOW 03/02/2025 4:07 PM CDT [facility] TRANSPARENCY CLEAR 03/02/2025 4:07 PM CDT [facility] SPECIFIC GRAVITY (U) 1.015 1.002 - 1.030 03/02/2025 4:07 PM CDT [facility] U PH 8.0 4.5 - 8.0 03/02/2025 4:07 PM CDT [facility] LEUKOCYTES (U) 1+(A) NEGATIVE 03/02/2025 4:07 PM CDT [facility] NITRITES NEGATIVE NEGATIVE 03/02/2025 4:07 PM CDT [facility] PROTEIN RANDOM (U) 2+(A) NEGATIVE 03/02/2025 4:07 PM CDT [facility] GLUCOSE (U) NEGATIVE NEGATIVE 03/02/2025 4:07 PM CDT [facility] KETONES MG/DL (U) 3+(A) NEGATIVE 03/02/2025 4:07 PM T [facility] UROBILINOGEN 1.0(A) NORMAL EU/DL 03/02/2025 4:07 PM CDT [facility] BILIRUBIN (U) NEGATIVE NEGATIVE 03/02/2025 4:07 PM T [facility] BLOOD (U) NEGATIVE NEGATIVE 03/02/2025 4:07 PM CDT [facility] WBC/HPF 0-5 /HPF 03/02/2025 4:07 PM T [facility] RBC/HPF 0-2 /HPF 03/02/2025 4:07 PM CDT [facility] EPI/HPF 0-5 /HPF 03/02/2025 4:07 PM T [facility] MUCUS 3+ 03/02/2025 4:07 PM CDT [facility] URINE SPECIMEN OBTAINED BY CLEAN CATCH PROCEDURE / Unknown 03/02/2025 2:25 PM CDT us Audra Adams MD URINE ORDERABLES Final Resul t [facility] [address] [place] [address], [place] [phone] * LACTIC ACID - SINGLE (12/26/2024 12:42 PM CDT) Only the most recent of2 resultswithin the time period is included. LACTIC ACID VENOUS 1.3 0.4 - 2.0 MMOL/L 12/26/2024 1:18 PM CDT [facility] 12/26/2024 12:4 2 PM CDT Audra Adams MD LABORATORY Final Result [facility] [address] [place] [address], [place] [phone] * BLOOD CULTURE #2 (12/26/2024 11:55 AM CDT) Only the most recent of2 resultswithin the time period is included. Pathologist [facility] SPEC DESCRIPTION BLOOD 12/27/19 12:15 PM CDT [facility] SPECIAL REQUESTS LAC SP 12/27/19 12:15 PM CDT [facility] CULTURE RESULT NO GROWTH 5 DAYS 12/31/2024 7:41 PM CDT [facility] BLOOD SPECIMEN OBTAINED FOR BLOOD CULTURE / Unknown 12/26/2024 11:55 AM CDT 12/26/2024 12:15 PM CDT Audra Adams MD MICROBIOLOGY - GENERAL ORDER BRANDON Final Result [facility] [address] [place] [address], [place] [phone] [facility] [address] [place] [address], [place] [phone] * XR CHEST PA OR AP 1V (12/26/2024 11:32 AM CDT) Anatomical Region Laterality Modality Chest Radiographic Deborah ging 12/26/2024 11:3 7 AM CDT Impressions 12/26/2024 11:38 AM CDT IMPRESSION: No radiographic evidence of acute cardiopulmonary disease. Ordered By: AUDRA ADAMS Interpreted By: Romario Benavides, 12/26/2024 11:37 AM Narrative 12/26/2024 11:[place] [id number] EXAMINATION: XR CHEST PA OR AP 1V INDICATIONS: Fever, cough COMPARISON: 03/01/2024 FINDINGS: Single frontal radiograph of the chest limited by portable technique demonstrates normal lung expansion without consolidation, effusion, or pneumothorax. No bulky hilar adenopathy. The cardiomediastinal contours are maintained. Heart size is normal. No acute or aggressive osseous abnormality. Procedure Note Romario Benavides MD - 12/26/2024 [place] [id number] EXAMINATION: XR CHEST PA OR AP 1V [...] RNA NEGATIVE NEGATIVE 12/26/2024 11:08 AM CDT [facility] Comment: NEGATIVE RESULTS DO NOT RULE [...] SPECIMEN TYPE NASAL 12/26/2024 10:49 AM CDT [facility] NASOPHARYNGEAL SWAB / Unknown 12/26/2024 10:18 AM CDT Audra Adams MD MICROBIOLOGY - GENERAL ORDER BRANDON Final Result Performing Organization Address City/[facility]/ZIP Co de Phone Number [facility] [address] [place] [address], [place] [phone] * INFLUENZA A & B (12/26/2024 10:18 AM CDT) Pathologist [facility] SPECIMEN TYPE NASOPHARYNX 12/26/2024 10:49 AM CDT [facility] INFLUENZA A NEGATIVE NEGATIVE 12/26/2024 11:12 AM CDT [facility] INFLUENZA B NEGATIVE NEGATIVE 12/26/2024 11:12 AM CDT [facility] NASOPHARYNGEAL SWAB / Unknown 12/26/2024 10:18 AM CDT Audra Adams MD MICROBIOLOGY - GENERAL ORDER BRANDON Final Result Performing Organization Address City/[facility]/ZIP Co de Phone Number [facility] [address] [place] [address], [place] [phone] from Last 3 Months Insurance NEAL Care Teams Cash Application Representative Relationship Specialty Start Date End Date Sagrario Etienne MD [address] [place] [address] PCP - General FAMILY PRACTICE 04/16/24
[2025-03-04] MEDS: ACETAMINOPHEN 500 MG TABLET 1000 MG PO (06:50)
[2025-03-04] MEDS: KETOROLAC 15 MG/ML VIAL (*BKC) IV PUSH (06:55)
[2025-03-04 07:00] LABS: BEDSIDEPREGUCG Negative (Negative)
--- NOTE | 2025-03-04 07:13 | P.PNAN_ITS ---
Anes - Initial Pre Proc Eval Procedure: Operation Date: 03/04/25 07:30 Proposed Procedures p Laparoscopic Bilateral Salpingectomy - Donato Dahl MD Date/Time: 03/04/25 07:13 Surgeon: Donato Dahl MD Pre Op Diagnosis: Desire Sterilization Patient Data Age: 34 Gender: F Height: 1.63 m Weight: 80.6 kg Last Vital Signs Temp 36.2 C L 03/04/25 06:35 Pulse 71 03/04/25 06:35 Resp 18 03/04/25 06:35 BP 108/69 03/04/25 06:35 Pulse Ox 99 03/04/25 06:35 O2 Del Method Room Air 03/04/25 06:35 Allergies Allergy/AdvReac Type Severity Reaction Status Date / Time alfalfa Allergy Intermediate Hives Verified 03/04/25 06:56 Home Medications ?Medication ?Instructions ?Recorded ?Confirmed ?Type famotidine 40 mg tablet 40 mg PO DAILY PRN acid reflux 02/20/25 03/04/25 History lithium carbonate 300 mg capsule 300 mg PO QHS #30 caps 02/27/25 03/04/25 Rx Laboratory Tests 03/04/25 06:58 POC Urine HCG, Qual Negative (Negative) Patient hx anesthesia problems: none Family hx anesthesia problems: none Results Review: All pre-operative results and documents have been reviewed as part of the pre- operative evaluation. [facility] Past Medical History Medical History Right flank pain Constipation Bipolar 1 disorder Surgical History Surgical History Hx of appendectomy Hx of cholecystectomy History of tonsillectomy Family History Family History Father Heart disease Social History Social History Smoking status: Never smoker Second hand tobacco smoke exposure: No Additional smoking assessment comments: patient currently smokes marijuana Alcohol intake: current Drinks per week: 2 Alcohol use details: socially Substance use: current Substance use type: former substance user, marijuana, crack/cocaine and methamphetamine Other substance usage details: meth was last used in 2013; cocaine last used over 2 years ago Last use: unsure Lack of Transportation: No Lack of Food: Never True Current Housing: I Have Housing Concerned About Future Housing: No Difficulty Paying Gas/Electric Bills: No Difficulty Paying for Meds: No Currently Unemployed: YES Education: High School Diploma/GED Difficulty w/ Childcare or Family Care: No Living arrangements: with family Spiritual care concerns: No Anes - Eval Final PreProcedure Day of Procedure 03/04/25 07:13 Patient weight: obese Heart: regular rate and rhythm Lungs: clear to auscultation Airway: Mallampati scale class II Neurological: alert and oriented Last oral intake: >/= 8 hours ASA classification: III Emergent: no Anesthetic plan: proceed Anesthesia type and monitoring: general ETT and standard monitoring Results Review: All pre-operative results and documents have been reviewed as part of the pre- operative evaluation. Informed Consent: The patient's anesthetic plan and its attendant risks and benefits were dis cussed with the patient/family/POA. Questions were solicited and answers provided to the satisfaction of the patient/family/POA.
--- NOTE | 2025-03-04 07:23 | PM.IMHP ---
H&P: HPI History of Present Illness Date/Time: 03/04/25 07:23 Chief Complaint: desires sterilization Narrative: Patient is a 34 year old who presents for bilateral salpingectomy. She has completed her childbearing and does not desire any future pregnancies. She desires permanent sterilization and understands that this is not reversible. She declines reversible methods of contraception. Denies headaches, abdominal pain, fevers, or chills. Review of Systems Review of Systems: All systems reviewed & are unremarkable except as noted in HPI and below PMFSH Past Medical History Medical History Right flank pain Constipation Bipolar 1 disorder Surgical History Surgical History Hx of appendectomy Hx of cholecystectomy History of tonsillectomy Family History Family History Father Heart disease Social History Social History Smoking status: Never smoker Second hand tobacco smoke exposure: No Additional smoking assessment comments: patient currently smokes marijuana Alcohol intake: current Drinks per week: 2 Alcohol use details: socially Substance use: current Substance use type: former substance user, marijuana, crack/cocaine and methamphetamine Other substance usage details: meth was last used in 2013; cocaine last used over 2 years ago Last use: unsure Lack of Transportation: No Lack of Food: Never True Current Housing: I Have Housing Concerned About Future Housing: No Difficulty Paying Gas/Electric Bills: No Difficulty Paying for Meds: No Currently Unemployed: YES Education: High School Diploma/GED Difficulty w/ Childcare or Family Care: No Living arrangements: with family Spiritual care concerns: No Meds Home Medications and Allergies Home Medications ?Medication ?Instructions ?Recorded ?Confirmed ?Type famotidine 40 mg tablet 40 mg PO DAILY PRN acid reflux 02/20/25 03/04/25 History lithium carbonate 300 mg capsule 300 mg PO QHS #30 caps 02/27/25 03/04/25 Rx Allergies Allergy/AdvReac Type Severity Reaction Status Date / Time alfalfa Allergy Intermediate Hives Verified 03/04/25 06:56 Vital Signs Vital Signs - 24 hr 03/04/25 06:35 Temperature 97.2 F L Pulse Rate 71 Respiratory Rate 18 Blood Pressure 108/69 Pulse Oximetry 99 Oxygen Delivery Room Air Exam Const: General: comfortable and no acute distress Resp: Effort & Inspection: normal respiratory effort Cardio: Rate: regular rate Extrem: General: normal to inspection Psych: Mental Status: mental status grossly normal Assessment and Plan Assessment and plan (1) Admission for sterilization: Code(s): Z30.2 - Encounter for sterilization Status: Acute Assessment and Plan: - patient has completed childbearing and desires permanent sterilization - understands that this is not reversible and declines reversible methods of contraception - will proceed with laparoscopic bilateral salpingectomy
--- NOTE | 2025-03-04 07:25 | WPDHPUPDATE1 ---
History and Physical Update Update Date/Time: 03/04/25 07:25 History and Physical has been reviewed, including an updated exam of the patient. There are NO changes in the patient's condition. Risks, benefits, and alternatives have been discussed and questions answered. Patient agrees to proceed with procedure.
--- NOTE | 2025-03-04 08:05 | S_PTH ---
PATIENT: Michelle Medina LOC: [facility] U#:[id number] AGE/SX: 34/F ROOM: RE03/04/[address]: Donato Dahl MD : 1990 BED: DIS: 03/04/2025 SPEC #: [id number] RECD: 03/04/25 10:28 STATUS: JAMES REQ #: [id number] VINH: 03/04/25 08:[address]: Donato Dahl DEPT: [facility] Surgical RECD BY: Juliann Rodriguez ENTERED: 03/04/25 10:28 SP TYPE: Surgical OTHR DR: Sagrario EtienneMD Tissues: A - Fallopian Tube Single B - Fallopian Tube Single Procedures: Gross and Microscopic Level 2 Hematoxylin and Eosin Stain
--- NOTE | 2025-03-04 08:11 | W.PM.PROC2 ---
Procedure Note - Detailed Date of Procedure 03/04/25 Pre-op Diagnosis Desire Sterilization Post-op Diagnosis Same Procedure Performed laparoscopic bilateral salpingectomy Surgeon Donato Dahl MD Anesthesia General Indications desires permanent sterilization Findings normal appearing uterus and ovaries, right fallopian tube with multiple paratubal cysts, normal appearing left fallopian tube Description of Procedure With IV fluids infusing, the patient was taken to the operating room. The patient was placed in supine position. General anesthesia with endotracheal intubation was given. A time-out took place. The patient was placed in dorsal lithotomy position using Rigo stirrups and she was prepped and draped in the usual sterile fashion. The bladder was drained using a red rubber catheter. A sterile speculum was placed vaginally, the anterior lip of the cervix was grasped with a single-tooth tenaculum and the acorn uterine manipulator was placed without difficulty. The speculum was removed. The surgeon's gloves were changed and attention was turned to the abdomen. A 5 mm incision was made in the umbilicus. Under direct visualization with the scope, the umbilical port was inserted without difficulty. Another two trocars were placed under direct visualization in the left upper and left lower quadrants. The patient was placed in Trendelenburg and inspection of the pelvis noted the above findings. Appropriate pictures were taken. Using the LigaSure device, a right salpingectomy was performed in the usual fashion. Care was taken to avoid the IP ligament. The salpingectomy went smoothly. The same procedure was repeated on the left side. The instruments were all removed from the abdomen and the CO2 gas was allowed to escape. The three skin incisions were reapproximated with 4-0 Polysorb in a subcuticular manner, followed by skin glue. The acorn manipulator and single tooth tenaculum was removed from the uterus and cervix, respectively. The tenaculum sites were hemostatic. All instruments were removed from the vagina. At the end of the case, instrument, sponge and needle counts were correct x 2. The patient was awakened from general anesthesia and was taken to PACU in stable condition. Estimated Blood Loss 10 Pathology Yes Complications No immediate complications Condition Stable Disposition Same day
[2025-03-04] MEDS: LACTATED RINGERS 1,000 ML 30 ML IV CONT ×2 (08:18→09:20)
[2025-03-04] MEDS: fentaNYL CITRATE INJ (*CRX) 100 MCG/2 ML VIAL 25 MCG IV PUSH ×7 (08:25→10:33)
[2025-03-04] MEDS: diazePAM INJ (*CRX) 10 MG/2 ML SYRINGE 5 MG IV PUSH (08:48)
== END 2025-03-04 11:03 | disposition home or self-care (01) ==
PROVIDERS: PCP Family Medicine; Visit Provider Obstetrics & Gynecology
PROC: (CPT 49320; principal; 2025-03-04 07:30)
DX: Z30.2 Encounter for sterilization (principal); N83.8 Other noninflammatory disorders of ovary, fallopian tube and broad ligament; F31.9 Bipolar disorder, unspecified; F12.90 Cannabis use, unspecified, uncomplicated; E66.9 Obesity, unspecified; Z68.30 Body mass index [BMI] 30.0-30.9, adult; Z98.890 Other specified postprocedural states; Z90.49 Acquired absence of other specified parts of digestive tract; Z82.49 Family history of ischemic heart disease and other diseases of the circulatory system
CPT/HCPCS: 58661; 88302; A9270; J1100; J1885; J2004; J2250; J2270; J2405; J2704; J3010; J3360; J7030; J7120

== ENCOUNTER 2025-03-13 10:15 | Outpatient (CLI) | payer OTHER, SELFPAY ==
--- OUTSIDE RECORDS SUMMARY | 2025-03-13 10:39 | XMS_ITS | Clinical Summary ---
Author Organization [facility] Address [address] [place] [address] Care Team Providers Care Food Beverage Manager Name Role Phone Unknown, Provider Primary Care Provider Unavaila ble Source Comments [facility],non-owned Affiliates and Associated Physician Practices is amultiple site organization consisting of ambulatory clinics and hospital sitesin [place], [place], [place] and [place]. This disclosure is being madepursuant to the Care Everywhere program and may not contain all information available regarding this patient. Last updated 18.[facility] [employer] Allergies No known active allergies Medications * [...] on file Legal Sex Female 6:06 AM MEDIA MONITOR Gender Identity Not on file Sexual Orientation [...] Insurance [place] SELF PAY NO INSURANCE Member Subscriber Plan / Payer (Ef fective for All Dates) Name:Michelle Medina Member ID:Not on file Relation to Subscriber:Not on file Name:[email or web address] Subscriber ID:Not on file (Home) Address: [address] [place] [address] Payer ID:Not on file Group ID:Not on file Type:Self Pay Address: [place], [place] Care Teams Food Beverage Manager Relationship Specialty Start Date End Date Unknown, Provider PCP - General 02/22/23
--- OUTSIDE RECORDS SUMMARY | 2025-03-13 10:39 | XMS_ITS | Patient Health Record ---
Author Organization [facility] Address [address] [place] [address] Care Team Providers Care Filler Shredding Machine Loader Name Role Phone Michelle Roberson Primary Care [...] Status W/U Status Risk Notes Problem Depression (877692208) Depression (F32.9) Active confirmed Problem Mood disorder (14643138) Mood disorder (F39) Active confirmed Problem Substance abuse (7895832784) Substance abuse (F19.10) Active confirmed Problem Anxiety (39574174) Anxiety (F41.9) Active confirmed Problem Bipolar 1 disorder (955450657) Bipolar 1 disorder (F31.9) Active confirmed Problem Annual wellness visit (69427391289105 5) Wellness examination (Z00.00) Active confirmed Problem Cocaine abuse (95317540) Cocaine abuse (F14.10) Active confirmed Problem Depressive disorder (disorder) (52626642) Depression, unspecified depression type (F32.9) Active confirmed Plan Of Treatment No Information Insurance Providers Payer Name Payer Address Payer Phone Subscriber Number Group Number Insured Name Patient Relationship to Insured Coverage Start Date Coverage End Date MEDICAID [address] [place] [phone] [id number] Michelle Medina Self - patient is the insured 3 MEDICAID [employer] [address] [place] [address] [id number] Michelle Medina Self - patient is the insured 3 Medical (General) History Medical History History ICD Code bipolar disorder anxiety Surgical History Surgery Date(Month/Year) appendectomy Cholecystectomy 2012 Tonsillectomy 2010 Hospitalization History Reason Date(Month/Year)
[2025-03-13 11:00] LABS: Anion Gap 12 mmol/L (4-12); Blood Urea Nitrogen 13 mg/dL (7-17); Calcium 9.8 mg/dL (8.4-10.2); Carbon Dioxide 21 mmol/L (22-30); Chloride 106 mmol/L (98-107); Estimated Glomerular Filt Rate > 60; Glucose 97 mg/dL (65-110); Potassium 4.0 mmol/L (3.4-5.0); Sodium 139 mmol/L (137-145)
== END 2025-03-13 10:16 | disposition home or self-care (01) ==
LOC: ANHLAB 10:17
PROVIDERS: PCP Student in an Organized Health Care Education/Training Program; Visit Provider Student in an Organized Health Care Education/Training Program
DX: E87.6 Hypokalemia (principal)
CPT/HCPCS: 36415; 80048